=== PATIENT | male | born 1955 | race Caucasian/White ===

== ENCOUNTER 2016-09-03 05:59 | Inpatient (IN) | payer BC ==
[~2016-09-03 05:59] MED LIST: Lactated Ringers 1,000 ML IV SCH; Lidocaine 1%/Sod Bicarbonate in NS 8.4% 1 ML Syringe IV PRN
[2016-09-03] MEDS ORDERED: oxyCODONE 5 MG Tab PO PRN (06:10)
[2016-09-03] MEDS ORDERED: Bisacodyl 5 MG Tab PO PRN (06:10)
[2016-09-03] MEDS ORDERED: Ondansetron 4 MG/2 ML SDV IVPUSH PRN (06:10)
[2016-09-03] MEDS ORDERED: Scopolamine 1.5 MG Transdermal Patch TRDERM ONE (07:00)
[2016-09-03] MEDS ORDERED: Morphine PF 10 MG/10 ML SDV ONE (07:14)
[2016-09-03] MEDS ORDERED: Midazolam 1 MG/ML 2 ML SDV ONE (07:14)
[2016-09-03] MEDS ORDERED: ceFAZolin 1 GM Vial ONE (07:36)
[2016-09-03] MEDS ORDERED: Propofol 200 MG/20 ML SDV ONE ×4 (07:41→09:03)
[2016-09-03] MEDS ORDERED: Lidocaine 1% 2 ML ONE (07:42)
[2016-09-03] MEDS: ceFAZolin 1 GM Vial ONE ×2 (08:07→08:45)
[2016-09-03] MEDS: Iodine/Sodium Iodide 2% Tincture 30 ML Bottle ONE ×2 (08:07→08:39)
[2016-09-03] MEDS: Bupivacaine 0.25% 30 ML SDV ONE ×2 (08:08→08:50)
[2016-09-03] MEDS: Morphine 8 MG, EPINEPHrine 0.3 MG, Cefuroxime 750 MG, Ketorolac 30 MG, Sodium Chloride ... ONE ×15 (08:08→20:31)
--- NOTE | 2016-09-03 08:21 | PCM.PREANE ---
Preanesthetic Assessment - Procedure Proposed Procedure: Left Total Knee Arthroplasty - Anesthesia/Transfusion/Family Hx Anesthesia History: Prior Anesthesia Reaction Type of Anesthesia Reaction: Excessive Nausea/Vomiting Family History of Anesthesia Reaction: No Transfusion History: No Prior Transfusion(s) - Review of Systems General: No Symptoms Pulmonary: No Symptoms Cardiovascular: No Symptoms Gastrointestinal: No symptoms Neurological: No Symptoms Other: Reports: None - Physical Assessment NPO Status Date: 09/02/16 NPO Status Time: 22:30 Pulse: 80 O2 Sat by Pulse Oximetry: 94 Respiratory Rate: 16 Blood Pressure: 154/87 Temperature: 36.8 C Height: 1.75 m Weight: 99.79 kg ASA Class: 2 Mental Status: Alert & Oriented x3 Airway Class: Mallampati = 2 Dentition: Reports: Normal Dentition Thyro-Mental Finger Breadths: 3 Mouth Opening Finger Breadths: 3 ROM/Head Extension: Full Lungs: Clear to auscultation, Normal respiratory effort Cardiovascular: Regular Rate, Regular Rhythm, No Murmurs - Lab Values: Laboratory Last Values MRSA (PCR) Negative 08/22/16 13:02 Pre-op labs all (CBC,BMP,Coags) essentially normal - Imaging/EKG Impressions: EKG NSR CXR negative for acute process - Allergies Allergies/Adverse Reactions: Allergies Allergy/AdvReac Type Severity Reaction Status Date / Time No Known Allergies Allergy Verified 08/31/16 10:44 - Blood Blood Available: No - Acknowledgements Anesthesia Type Planned: Spinal Pt an Appropriate Candidate for the Planned Anesthesia: Yes Alternatives and Risks of Anesthesia Discussed w Pt/Guardian: Yes Pt/Guardian Understands and Agrees with Anesthesia Plan: Yes PreAnesthesia Questionnaire HEENT History: Reports: Impaired vision Other HEENT History: cerumen impaction, wears glasses, 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 Cardiovascular History: Reports: High cholesterol Respiratory History: Reports: Pneumothorax (spontaneous right 2013) Other Respiratory History: Right spontaneous pneumothorax resulting in chest tube placement, followed by talc pleurodesis 2013 Gastrointestinal History: Reports: GERD [employer]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: Reports: None Musculoskeletal History: Reports: Arthritis Other Musculoskeletal History: carpal tunnel syndrome, hip pain, joint pain, laminectomy 91,93, L knee cartilage repair 71, R toe pain, low back strain Neurological History: Reports: Migraines Psychiatric History: Reports: Anxiety Endocrine/Metabolic History: Reports: None Hematologic History: Reports: None Immunologic History: Reports: None Oncologic (Cancer) History: Reports: Prostate Other Dermatologic History: sebaceous cyst, onchomycosis, epidermal cyst - Past Surgical History Head Surgeries/Procedures: Reports: None HEENT Surgical History: Reports: Tonsillectomy Respiratory Surgical History: Reports: Pleurodesis (right lung), Other (see below) (right lung chest tube plcmt) GI Surgical History: Reports: Colonoscopy Male Surgical History: Reports: Prostatectomy, Vasectomy Other Musculoskeletal Surgeries/Procedures:: bulging disks/laminectomy, L carpal tunnel surgery, knee surgery - SUBSTANCE USE Smoking Status *Q: Never Smoker Second Hand Smoke Exposure: No Days Per Week of Alcohol Use: 7 Number of Drinks Per Day: 1 Total Drinks Per Week: 7 Recreational Drug Use History: No - HOME MEDS Home Medications: Home Meds Fenofibrate Nanocrystallized [Tricor] 48 mg PO BEDTIME 12/02/13 [History] Edwards-3S/DHA/Epa/Fish Oil/D3 [Fish Gqe-Hgwwm-6-Vit D Softgel] 2 each PO BEDTIME 12/02/13 [History] Omeprazole [Prilosec] 20 mg PO BEDTIME 12/02/13 [History] Ubidecarenone [Co Q-10] 10 mg PO BEDTIME 12/02/13 [History] Lovastatin 20 mg PO BEDTIME 03/26/15 [History] Nortriptyline 20 mg PO BEDTIME 05/08/16 [History] Sildenafil [Revatio] 20 mg PO BEDTIME 05/08/16 [History] Cholecalciferol (Vitamin D3) [Vitamin D3] 1,000 unit PO BEDTIME 08/31/16 [ History] - CURRENT (IN HOUSE) MEDS Current Meds: Current Medications Aspirin (Ecotrin) 325 mg PO BID ELIANE Bisacodyl (Dulcolax) 5 mg PO DAILY PRN PRN Reason: Constipation Cyclobenzaprine HCl (Flexeril) 10 mg PO TID PRN PRN Reason: Spasms Docusate Sodium (Colace) 100 mg PO BID ELIANE Famotidine (Pepcid) 20 mg PO Q12H ELIANE Lactated Ringer's (Ringers, Lactated) 1,000 mls @ 125 mls/hr IV ASDIRECTED ELIANE Last Admin: 09/03/16 06:35 Dose: 125 mls/hr Cefazolin Sodium/Dextrose 2 gm (/ Premix) 50 mls @ 100 mls/hr IV Q8H ELIANE Stop: 09/04/16 06:59 Ketorolac Tromethamine (Toradol) 15 mg IVPUSH Q6H PRN PRN Reason: Pain Stop: 09/03/16 15:01 Lidocaine/Sodium Bicarbonate (Buffered Lidocaine 1% In Ns 8.4%) 0.25 ml IV ONETIME PRN PRN Reason: Prior to IV Start Last Admin: 09/03/16 06:35 Dose: 0.25 ml Magnesium Hydroxide (Milk Of Magnesia) 30 ml PO BID PRN PRN Reason: Constipation Miscellaneous Information (Remove Patch) 1 ea TRDERM Q72H ONE Stop: 09/06/16 07:01 Morphine Sulfate (Morphine) 2 mg IVPUSH Q2H PRN PRN Reason: Breakthrough Pain Multivitamins (Thera) 1 each PO WITHBREAKFAST ELIANE Naloxone HCl (Narcan) 0.1 mg IVPUSH Q5M PRN PRN Reason: Oversedation Stop: 09/03/16 10:16 Ondansetron HCl (Zofran) 4 mg IVPUSH Q6H PRN PRN Reason: Nausea/Vomiting Oxycodone HCl (Oxycodone) 10 mg PO Q6H PRN PRN Reason: Pain Oxycodone/Acetaminophen (Percocet 325-5 Mg) 1 - 2 tab PO Q4H PRN PRN Reason: Pain Senna (Senna) 8.6 mg PO BID PRN PRN Reason: Constipation Sodium Chloride (Saline Flush) 10 ml FLUSH ASDIRECTED PRN PRN Reason: Keep Vein Open Discontinued Medications Bupivacaine HCl (Marcaine 0.25%) Confirm Administered Dose 30 ml .ROUTE .STK- MED ONE Stop: 09/03/16 06:19 Last Admin: 09/03/16 08:08 Dose: 30 ml Cefazolin Sodium (Ancef) Confirm Administered Dose 2 gm .ROUTE .STK-MED ONE Stop: 09/03/16 06:19 Last Admin: 09/03/16 08:07 Dose: 2 gm Cefazolin Sodium (Ancef) Confirm Administered Dose 2 gm .ROUTE .STK-MED ONE Stop: 09/03/16 07:37 Morphine Sulfate 8 mg/Epinephrine HCl 0.3 mg/Cefuroxime Sodium 750 mg/Ketorolac Tromethamine 30 mg/Sodium Chloride 27.9 ml 0 mg .XX ONETIME ONE Stop: 09/03/16 08:01 Last Admin: 09/03/16 08:08 Dose: 788.3 mg Lidocaine HCl (Xylocaine-Mpf 1%) Confirm Administered Dose 2 mls @ as directed .ROUTE .STK-MED ONE Stop: 09/03/16 07:43 Iodine (Iodine 2% Mild Tincture) Confirm Administered Dose 30 ml .ROUTE .STK- MED ONE Stop: 09/03/16 06:19 Last Admin: 09/03/16 08:07 Dose: 18 ml Midazolam HCl (Versed 1 Mg/Ml) Confirm Administered Dose 2 mg .ROUTE .STK-MED ONE Stop: 09/03/16 07:15 Morphine Sulfate (Duramorph Pf) Confirm Administered Dose 10 mg .ROUTE .STK-MED ONE Stop: 09/03/16 07:15 Propofol (Diprivan 20 Ml) Confirm Administered Dose 200 mg .ROUTE .STK-MED ONE Stop: 09/03/16 07:42 Propofol (Diprivan 20 Ml) Confirm Administered Dose 200 mg .ROUTE .STK-MED ONE Stop: 09/03/16 07:57 Scopolamine (Transderm-Scop) 1.5 mg TRDERM ONETIME ONE Stop: 09/03/16 07:01 Last Admin: 09/03/16 07:00 Dose: 1.5 mg Tranexamic Acid (Cyklokapron) Confirm Administered Dose 1,000 mg .ROUTE .STK- MED ONE Stop: 09/03/16 06:18 Last Admin: 09/03/16 08:08 Dose: 1,000 mg Preanesthetic Assessment - ANESTHESIA/TRANSFUSION/FAMILY HX Anesthesia/Transfusion History: No Prior Transfusion(s), Prior Anesthesia ( nausea) Family History of Anesthesia Reaction: No - PHYSICAL ASSESSMENT Height: 1.75 m Weight: 99.79 kg NPO Status Date: 09/02/16 NPO Status Time: 22:30 - LAB Values: Laboratory Last Values MRSA (PCR) Negative 08/22/16 13:02 - ALLERGIES Allergies/Adverse Reactions: Allergies Allergy/AdvReac Type Severity Reaction Status Date / Time No Known Allergies Allergy Verified 08/31/16 10:44
[2016-09-03] MEDS ORDERED: Ketorolac 15 MG/ML SDV IVPUSH PRN (09:00)
[2016-09-03] MEDS ORDERED: Lactated Ringers 1,000 ML ONE (09:14)
[2016-09-03] MEDS ORDERED: fentaNYL 100 MCG/2 ML SDV ONE (09:39)
--- NOTE | 2016-09-03 09:53 | PCM.POSTAN ---
POST ANESTHESIA ASSESSMENT - MENTAL STATUS Mental Status: alert, oriented - VITAL SIGNS Pulse Rate: 64 SaO2: 98 Resp Rate: 8 Blood Pressure: 132/81 Temperature: 36.2 C - RESPIRATORY Respiratory Status: respiratory rate WNL, airway patent, O2 saturation stable - CARDIOVASCULAR CV Status: pulse rate WNL, blood pressure stable - GASTROINTESTINAL GI Status: no symptoms - PAIN Pain Score: 6 - POST OP HYDRATION Hydration Status: adequate & stable
[2016-09-03] MEDS ORDERED: Naloxone 0.4 MG/ML SDV IVPUSH PRN (10:00)
[2016-09-03] MEDS ORDERED: Ondansetron 4 MG/2 ML SDV IVPUSH ONE (10:30)
[2016-09-03] MEDS ORDERED: HYDROmorphone 0.5 MG/0.5 ML Syringe IM ONE (10:33)
[2016-09-03] MEDS ORDERED: fentaNYL 50 MCG/HR Transdermal Patch TRDERM SCH (10:45)
--- NOTE | 2016-09-03 10:54 | CR ---
Left knee: AP and lateral views of the left knee were obtained. Comparison: No previous knee study. Knee prosthesis is seen. Components are aligned. Underlying bony structures are intact. Soft tissue air noted from the surgical procedure. Impression: 1. Satisfactory postop radiographic appearance of recently placed left knee prosthesis. Diagnostic code #2
--- NOTE | 2016-09-03 13:56 | PCM.CONS ---
H&P History of Present Illness - General Date of Service: 09/03/16 Admit Problem/Dx: Admission Diagnosis/Problem Admission Diagnosis/Problem Osteoarthritis of knee Source of Information: Patient, Old records History Limitations: Reports: No limitations - History of Present Illness Initial Comments - Free Text/Narative: Phillip is a 60yo male s/p Lt TKA with Dr. Patel; POD #0 Doing well thus far. Pain under fair control now, fentanyl patch ordered per anesthesia. Jose catheter draining. PMH includes HLD, GERD, OA, migraine MENDOZA's, anxiety, spontaeneous pneumothorax in 2013, sphenoid sinus mass, prostate cancer s/p prostatectomy. Hospitalist service is consulted for postoperative medical management. Left Knee Pain Score (Numeric/FACES): 2 - Related Data Allergies/Adverse Reactions: Allergies Allergy/AdvReac Type Severity Reaction Status Date / Time No Known Allergies Allergy Verified 08/31/16 10:44 Home Medications: Home Meds Fenofibrate Nanocrystallized [Tricor] 48 mg PO BEDTIME 12/02/13 [History] Alpha-3S/DHA/Epa/Fish Oil/D3 [Fish Bzn-Tlzbi-6-Vit D Softgel] 2 each PO BEDTIME 12/02/13 [History] Omeprazole [Prilosec] 20 mg PO BEDTIME 12/02/13 [History] Ubidecarenone [Co Q-10] 10 mg PO BEDTIME 12/02/13 [History] Lovastatin 20 mg PO BEDTIME 03/26/15 [History] Nortriptyline 20 mg PO BEDTIME 05/08/16 [History] Sildenafil [Revatio] 20 mg PO BEDTIME 05/08/16 [History] Cholecalciferol (Vitamin D3) [Vitamin D3] 1,000 unit PO BEDTIME 08/31/16 [ History] Past Medical History HEENT History: Reports: Impaired vision Other HEENT History: cerumen impaction, wears glasses, 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 Cardiovascular History: Reports: High cholesterol Respiratory History: Reports: Pneumothorax (spontaneous right 2013) Other Respiratory History: Right spontaneous pneumothorax resulting in chest tube placement, followed by talc pleurodesis 2013 Gastrointestinal History: Reports: GERD 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: Reports: None Musculoskeletal History: Reports: Arthritis Other Musculoskeletal History: carpal tunnel syndrome, hip pain, joint pain, laminectomy 91,93, L knee cartilage repair 71, R toe pain, low back strain Neurological History: Reports: Migraines Psychiatric History: Reports: Anxiety Endocrine/Metabolic History: Reports: None Hematologic History: Reports: None Immunologic History: Reports: None Oncologic (Cancer) History: Reports: Prostate Other Dermatologic History: sebaceous cyst, onchomycosis, epidermal cyst - Past Surgical History Head Surgeries/Procedures: Reports: None HEENT Surgical History: Reports: Tonsillectomy Respiratory Surgical History: Reports: Pleurodesis (right lung), Other (see below) (right lung chest tube plcmt) GI Surgical History: Reports: Colonoscopy Male Surgical History: Reports: Prostatectomy, Vasectomy Other Musculoskeletal Surgeries/Procedures:: bulging disks/laminectomy, L carpal tunnel surgery, knee surgery Social & Family History - Family History Family Medical History: Noncontributory - Tobacco Use Smoking Status *Q: Never Smoker Second Hand Smoke Exposure: No - Caffeine Use Caffeine Use: Reports: Coffee - Alcohol Use Days Per Week of Alcohol Use: 7 Number of Drinks Per Day: 1 Total Drinks Per Week: 7 - Recreational Drug Use Recreational Drug Use: No Drug Use in Last 12 Months: No H&P Review of Systems - Review of Systems: Review Of Systems: See Below General: Reports: no symptoms HEENT: Reports: no symptoms Pulmonary: Reports: No Symptoms Cardiovascular: Reports: no symptoms Gastrointestinal: Reports: No symptoms Genitourinary: Reports: other (jose cath) Musculoskeletal: Reports: leg pain (lt knee) Psychiatric: Reports: no symptoms Neurological: Reports: No Symptoms Exam - Exam Exam: See Below - Vital Signs Vital Signs: Last Vital Signs Temp 96.6 F 09/03/16 11:04 Pulse 64 09/03/16 13:01 Resp 20 09/03/16 12:02 BP 131/76 09/03/16 13:15 Pulse Ox 97 09/03/16 13:15 Weight: 220 lb - Exam Quality Assessment: DVT prophylaxis General: alert, oriented, cooperative HEENT: Conjunctiva clear, EOMI, Hearing intact, Mucosa moist & pink, Pupils equal, Pupils reactive Neck: supple, trachea midline Lungs: Clear to auscultation, Normal respiratory effort Cardiovascular: regular rate, regular rhythm, normal S1, normal S2 Abdomen: normal bowel sounds, soft. No: organomegaly, guarding, rigidity, rebound, tenderness (Male) Exam: Deferred Rectal (Males) Exam: Deferred Extremities: other (Lt leg with amy wrap; SCD's in place bilat). No: calf tenderness, edema Peripheral Pulses: 1+: dorsalis pedis (L), dorsalis pedis (R) Skin: warm, dry Neuro Extensive - Mental Status: alert, oriented x3, normal mood/affect, normal cognition, memory intact Neuro Extensive - Motor, Sensory, Reflexes: CN II-XII intact Psychiatric: alert, normal affect, normal mood Consult PN Assessment/Plan POD#: 0 Procedures: Procedures ASSAY OF CREATININE (11/28/15) ASSAY OF FERRITIN (08/16/16) ASSAY OF LIPASE (05/08/16) ASSAY OF PREALBUMIN (08/16/16) ASSAY OF PSA TOTAL (07/18/16) ASSAY OF TROPONIN QUANT (12/02/13) BONE IMAGING WHOLE BODY (10/17/15) CARPAL TUNNEL SURGERY (04/07/15) CHEST X-RAY 1 VIEW FRONTAL (12/02/13) CHEST X-RAY 2VW FRONTAL&LATL (08/16/16) COMPLETE CBC AUTOMATED (08/16/16) COMPLETE CBC W/AUTO DIFF WBC (05/08/16) COMPREHEN METABOLIC PANEL (08/16/16) CT HEAD/BRAIN W/O & W/DYE (09/16/15) CT MAXILLOFACIAL W/O DYE (10/07/15) EMERGENCY DEPT VISIT (05/08/16) EMERGENCY DEPT VISIT (03/26/15) EMERGENCY DEPT VISIT (12/02/13) FIBRIN DEGRADATION QUANT (12/02/13) HYDRATE IV INFUSION ADD-ON (05/08/16) IMMUNIZATION ADMIN (03/26/15) INSERT CATH PLEURA W/ IMAGE (12/02/13) LEUKOCYTE ASSESSMENT FECAL (05/08/16) LIPID PANEL (05/18/16) MEASURE BLOOD OXYGEN LEVEL (12/02/13) MEASURE BLOOD OXYGEN LEVEL (12/02/13) METABOLIC PANEL TOTAL CA (05/18/16) MR ANGIOGRAPHY HEAD W/O DYE (11/28/15) MR ANGIOGRAPHY NECK W/DYE (11/28/15) MR-STAPH DNA AMP PROBE (04/07/15) MRI BRAIN STEM W/O & W/DYE (05/17/16) MRI ORBT/FAC/NCK W/O &W/DYE (09/22/15) PROTHROMBIN TIME (08/16/16) ROUTINE VENIPUNCTURE (07/18/16) STOOL CULTR AEROBIC BACT EA (05/08/16) TDAP VACCINE 7 YRS/> IM (03/26/15) THER/PROPH/DIAG INJ IV PUSH (05/08/16) THROMBOPLASTIN TIME PARTIAL (08/16/16) TX/PRO/DX INJ NEW DRUG ADDON (05/08/16) TX/PRO/DX INJ SAME DRUG BOWLING OR SKATING FRONT DESK CLERK (12/02/13) VITAMIN D 25 HYDROXY (08/16/16) (1) S/P total knee arthroplasty SNOMED Code(s): 8819247735733, 986002654, 2105911607447 Code(s): Z96.659 - PRESENCE OF UNSPECIFIED ARTIFICIAL KNEE JOINT Priority: High Current Visit: Yes Qualifiers: Laterality: left Qualified Code(s): Z96.652 - Presence of left artificial knee joint (2) Osteoarthritis SNOMED Code(s): 319123953 Code(s): M19.90 - UNSPECIFIED OSTEOARTHRITIS, UNSPECIFIED SITE Priority: High Current Visit: Yes Qualifiers: Osteoarthritis location: knee Osteoarthritis type: primary Laterality: left Qualified Code(s): M17.12 - Unilateral primary osteoarthritis, left knee (3) HLD (hyperlipidemia) SNOMED Code(s): 17839402 Code(s): E78.5 - HYPERLIPIDEMIA, UNSPECIFIED Priority: Medium Current Visit: No Qualifiers: Hyperlipidemia type: unspecified Qualified Code(s): E78.5 - Hyperlipidemia , unspecified (4) Migraine SNOMED Code(s): 18421685 Code(s): G43.909 - MIGRAINE, UNSP, NOT INTRACTABLE, WITHOUT STATUS MIGRAINOSUS Priority: Medium Current Visit: No Qualifiers: Migraine type: unspecified Intractability: not intractable (5) Anxiety SNOMED Code(s): 28406539 Code(s): F41.9 - ANXIETY DISORDER, UNSPECIFIED Priority: Medium Current Visit: No (6) Prostate cancer SNOMED Code(s): 054657881 Code(s): C61 - MALIGNANT NEOPLASM OF PROSTATE Priority: Medium Current Visit: No Comment: history of; s/p prostatectomy (7) S/P prostatectomy SNOMED Code(s): 136522654, 48931801, 231117279 Code(s): Z90.79 - ACQUIRED ABSENCE OF OTHER GENITAL ORGAN(S) Priority: Medium Current Visit: No (8) Mass of sphenoid sinus SNOMED Code(s): 773667221 Code(s): R22.0 - LOCALIZED SWELLING, MASS AND LUMP, HEAD Priority: Medium Current Visit: No (9) Spontaneous pneumothorax SNOMED Code(s): 45425639 Code(s): J93.83 - OTHER PNEUMOTHORAX Priority: High Current Visit: No Onset Date: 12/02/13 Comment: right Problem List Initiated/Reviewed/Updated: Yes My Orders last 24 hours: My Active Orders 09/05/16 07:00 Chest 2V [CR] Routine Plan: S/P Lt TKA with Dr. Patel: POD #0 -Pain management and DVT prophylax per primary team -PT/OT -IS/C&DB postop Other chronic conditions: Stable, continue home medications GERD- PPI HLD Migraine Anxiety Hx prostate ca s/p prostatectomy Hx spenoid sinus mas hx spontaneous pneumothorax in 2013- will obtain CXR tomorrow to ensure no recurrence postoperatively Other: CM/SW for dc planning assistance Labs in am Patient is Full Code Requesting Provider: Amanda Date Consult Requested: 09/03/16 Reason for Consult: Postoperative medical management Patient History Reviewed: Yes Time Spent (in minutes): 35
[2016-09-03] MEDS: ceFAZolin 2 GM in Premix Bag 1 BAG IV SCH ×2 (14:40→22:32)
[2016-09-03] MEDS: Sodium Chloride 0.9% 10 ML Syringe FLUSH PRN (15:49)
[2016-09-03] MEDS: Docusate Sodium 100 MG Cap PO SCH (20:33)
[2016-09-03] MEDS: Cyclobenzaprine 10 MG Tab PO PRN (20:33)
[2016-09-03] MEDS: Ketorolac 15 MG/ML SDV IVPUSH PRN (20:35)
[2016-09-03] MEDS: Pantoprazole 40 MG Tab.CR PO SCH (20:53)
[2016-09-03] MEDS: Nortriptyline 10 MG Cap PO SCH (20:53)
[2016-09-03] MEDS: Cholecalciferol (Vitamin D3) 1,000 Unit Tab PO SCH (20:54)
[2016-09-03] MEDS: Simvastatin 10 MG Tab PO SCH (20:54)
[2016-09-03] MEDS: FENOFIBRATE NANOCRYSTALLIZED 48 MG PO SCH (20:54)
[2016-09-03] MEDS: Sildenafil 20 MG Tab PO SCH (20:55)
[2016-09-03] MEDS: UBIDECARENONE 10 MG PO SCH (20:55)
[2016-09-03] MEDS: Fish Oil/Omega-3 Fatty Acids 1 Gm Cap PO SCH (21:00)
[2016-09-03] MEDS ORDERED: Magnesium Hydroxide 400 MG/5 ML Susp 30 ML Cup PO PRN (21:00)
[2016-09-03] MEDS ORDERED: Sennosides 8.6 MG Tab PO PRN (21:00)
[2016-09-03] MEDS ORDERED: Famotidine 20 MG Tab PO SCH (21:00)
[2016-09-04] MEDS: Aluminum Hydroxide/Magnesium Hydroxide/Simethicone Susp 30 ML Cup PO PRN ×2 (01:14→11:59)
[2016-09-04] MEDS: Acetaminophen 325 MG Tab PO PRN (01:21)
[2016-09-04] MEDS: Ketorolac 15 MG/ML SDV IVPUSH PRN (02:20)
[2016-09-04] MEDS: ceFAZolin 2 GM in Premix Bag 1 BAG IV SCH (07:18)
[2016-09-04] MEDS: Cyclobenzaprine 10 MG Tab PO PRN ×2 (08:05→16:06)
[2016-09-04] MEDS: Multivitamins,Therapeutic Tab PO SCH (08:05)
[2016-09-04] MEDS: Docusate Sodium 100 MG Cap PO SCH ×2 (08:05→20:44)
[2016-09-04] MEDS: Aspirin 325 MG Tab.EC PO SCH ×2 (08:05→20:44)
[2016-09-04] MEDS: Acetaminophen/oxyCODONE 325-5 MG Tab PO PRN ×3 (09:20→18:09)
[2016-09-04] MEDS: Sodium Chloride 0.9% 10 ML Syringe FLUSH PRN ×3 (09:22→13:02)
--- NOTE | 2016-09-04 10:28 | PCM.CONSN ---
- General Info Date of Service: 09/04/16 Admission Dx/Problem (Free Text): Admission Diagnosis/Problem Admission Diagnosis/Problem Osteoarthritis of knee POD [address] Patel Pain under fair control, voiding without problems. Had nausea this am- resolved now. Temp overnight of 100.0, resolved now. CXR obtained/ordered d/t hx of spontaneous pneumothorax- unremarkable by my review- awaiting radiologists final interp. Working with PT, doing well. Plans for dc home today with family. Functional Status: Reports: pain controlled, tolerating diet, ambulating, urinating. Denies: new symptoms - Review of Systems General: Reports: No Symptoms HEENT: Reports: no symptoms Pulmonary: Reports: no symptoms Cardiovascular: Reports: No Symptoms Gastrointestinal: Reports: No symptoms Genitourinary: Reports: no symptoms Musculoskeletal: Reports: leg pain Skin: Reports: no symptoms Neurological: Reports: No Symptoms Psychiatric: Reports: no symptoms - Patient Data Vitals - most recent: Last Vital Signs Temp 99.0 F 09/04/16 09:29 Pulse 78 09/04/16 09:29 Resp 16 09/04/16 09:29 BP 148/67 H 09/04/16 09:29 Pulse Ox 91 L 09/04/16 09:29 Weight - most recent: 220 lb I&O - last 24 hours: Intake & Output 09/03/16 09/04/16 09/04/16 22:59 06:59 14:59 Intake Total 1820 800 100 Output Total 1150 1200 Balance 670 -400 100 Lab Results last 24 hrs: Laboratory Results - last 24 hr 09/04/16 09/04/16 Range/Units 06:06 06:06 WBC 12.69 H (4.23-9.07) K/mm3 RBC 4.00 L (4.63-6.08) M/mm3 Hgb 12.5 L (13.7-17.5) gm/L Hct 36.3 L (40.1-51.0) % MCV 90.8 (79.0-92.2) fl MCH 31.3 (25.7-32.2) pg MCHC 34.4 (32.2-35.5) g/dl RDW Std Deviation 39.6 (35.1-43.9) fL Plt Count 286 (163-337) K/mm3 MPV 9.7 (9.4-12.3) fl Neut % (Auto) 72.9 H (34.0-67.9) % Lymph % (Auto) 12.7 L (21.8-53.1) % [place] % (Auto) 12.7 H (5.3-12.2) % Eos % (Auto) 1.3 (0.8-7.0) Baso % (Auto) 0.2 (0.1-1.2) % Neut # (Auto) 9.24 H (1.78-5.38) K/mm3 Lymph # (Auto) 1.61 (1.32-3.57) K/mm3 [place] # (Auto) 1.61 H (0.30-0.82) K/mm3 Eos # (Auto) 0.17 (0.04-0.54) K/mm3 Baso # (Auto) 0.03 (0.01-0.08) K/mm3 Manual Slide Review Normal smear Sodium 135 L (136-145) mEq/L Potassium 3.7 (3.5-5.1) mEq/L Chloride 101 (98-107) mEq/L Carbon Dioxide 27 (21-32) mEq/L Anion Gap 10.7 (5-15) BUN 14 (7-18) mg/dL Creatinine 1.1 (0.7-1.3) mg/dL Est Cr Clr Drug Dosing 70.52 mL/min Estimated GFR (MDRD) > 60 (>60) mL/min BUN/Creatinine Ratio 12.7 L (14-18) Glucose 122 H (80-115) mg/dL Calcium 8.2 L (8.5-10.1) mg/dL Total Bilirubin 0.9 (0.2-1.0) mg/dL AST 21 (15-37) U/L ALT 49 (16-63) U/L Alkaline Phosphatase 38 L (46-116) U/L Total Protein 5.9 L (6.4-8.2) g/dl Albumin 3.3 L (3.4-5.0) g/dl Globulin 2.6 gm/dL Albumin/Globulin Ratio 1.3 (1-2) Med Orders - Current: Current Medications Acetaminophen (Tylenol) 650 mg PO Q4H PRN PRN Reason: Headache Last Admin: 09/04/16 01:21 Dose: 650 mg Al Hydroxide/Mg Hydroxide (Mag-Al Plus) 30 ml PO Q4H PRN PRN Reason: Heartburn Last Admin: 09/04/16 01:14 Dose: 30 ml Aspirin (Ecotrin) 325 mg PO BID [facility] Last Admin: 09/04/16 08:05 Dose: 325 mg Bisacodyl (Dulcolax) 5 mg PO DAILY PRN PRN Reason: Constipation Cholecalciferol (Vitamin D3) 1,000 units PO BEDTIME [facility] Last Admin: 09/03/16 20:54 Dose: Not Given Cyclobenzaprine HCl (Flexeril) 10 mg PO TID PRN PRN Reason: Spasms Last Admin: 09/04/16 08:05 Dose: 10 mg Docusate Sodium (Colace) 100 mg PO BID [facility] Last Admin: 09/04/16 08:05 Dose: 100 mg Fentanyl (Duragesic) 50 mcg TRDERM Q72H [facility] Last Admin: 09/03/16 11:46 Dose: Not Given Fish Oil (Fish Oil) 2 gm PO BEDTIME [facility] Last Admin: 09/03/16 21:00 Dose: 2 gm Lactated Ringer's (Ringers, Lactated) 1,000 mls @ 125 mls/hr IV ASDIRECTED [facility] Last Admin: 09/03/16 06:35 Dose: 125 mls/hr Magnesium Hydroxide (Milk Of Magnesia) 30 ml PO BID PRN PRN Reason: Constipation Miscellaneous Information (Remove Patch) 1 ea TRDERM Q72H ONE Stop: 09/06/16 07:01 Miscellaneous Information (Remove Patch) 0 ea TRDERM Q72H [facility] Last Admin: 09/04/16 08:10 Dose: Not Given Morphine Sulfate (Morphine) 2 mg IVPUSH Q2H PRN PRN Reason: Breakthrough Pain Multivitamins (Thera) 1 each PO WITHBREAKFAST [facility] Last Admin: 09/04/16 08:05 Dose: 1 each Nortriptyline HCl (Nortriptyline) 20 mg PO BEDTIME [facility] Last Admin: 09/03/16 20:53 Dose: Not Given Ondansetron HCl (Zofran) 4 mg IVPUSH Q6H PRN PRN Reason: Nausea/Vomiting Last Admin: 09/04/16 09:17 Dose: 4 mg Oxycodone HCl (Oxycodone) 10 mg PO Q6H PRN PRN Reason: Pain Oxycodone/Acetaminophen (Percocet 325-5 Mg) 1 - 2 tab PO Q4H PRN PRN Reason: Pain Last Admin: 09/04/16 09:20 Dose: 2 tab Pantoprazole Sodium (Protonix) 40 mg PO BEDTIME [facility] Last Admin: 09/03/16 20:53 Dose: Not Given Fenofibrate Nanocrystallized [ Tricor] 48 Mg 0 each PO BEDTIME [facility] Last Admin: 09/03/16 20:54 Dose: Not Given Ubidecarenone [Co Q- (10] 10 Mg) 0 each PO BEDTIME [facility] Last Admin: 09/03/16 20:55 Dose: Not Given Senna (Senna) 8.6 mg PO BID PRN PRN Reason: Constipation Sildenafil Citrate (Revatio) 20 mg PO BEDTIME [facility] Last Admin: 09/03/16 20:55 Dose: Not Given Simvastatin (Zocor) 10 mg PO BEDTIME [facility] Last Admin: 09/03/16 20:54 Dose: Not Given Sodium Chloride (Saline Flush) 10 ml FLUSH ASDIRECTED PRN PRN Reason: Keep Vein Open Last Admin: 09/04/16 09:22 Dose: 10 ml Discontinued Medications Bupivacaine HCl (Marcaine 0.25%) Confirm Administered Dose 30 ml .ROUTE .STK- MED ONE Stop: 09/03/16 06:19 Last Admin: 09/03/16 08:50 Dose: 30 ml Cefazolin Sodium (Ancef) Confirm Administered Dose 2 gm .ROUTE .STK-MED ONE Stop: 09/03/16 06:19 Last Admin: 09/03/16 08:45 Dose: 2 gm Cefazolin Sodium (Ancef) Confirm Administered Dose 2 gm .ROUTE .STK-MED ONE Stop: 09/03/16 07:37 Morphine Sulfate 8 mg/Epinephrine HCl 0.3 mg/Cefuroxime Sodium 750 mg/Ketorolac Tromethamine 30 mg/Sodium Chloride 27.9 ml 0 mg .XX ONETIME ONE Stop: 09/03/16 08:01 Last Admin: 09/03/16 20:31 Dose: Not Given Famotidine (Pepcid) 20 mg PO Q12H [facility] Fentanyl (Sublimaze) Confirm Administered Dose 100 mcg .ROUTE .STK-MED ONE Stop: 09/03/16 09:40 Hydromorphone HCl (Dilaudid) 0.5 mg IM ONETIME ONE Stop: 09/03/16 10:34 Last Admin: 09/03/16 11:45 Dose: Not Given Cefazolin Sodium/Dextrose 2 gm (/ Premix) 50 mls @ 100 mls/hr IV Q8H [facility] Stop: 09/04/16 06:59 Last Admin: 09/04/16 07:18 Dose: 100 mls/hr Lidocaine HCl (Xylocaine-Mpf 1%) Confirm Administered Dose 2 mls @ as directed .ROUTE .STK-MED ONE Stop: 09/03/16 07:43 Lactated Ringer's (Ringers, Lactated) Confirm Administered Dose 1,000 mls @ as directed .ROUTE .STK-MED ONE Stop: 09/03/16 09:15 Iodine (Iodine 2% Mild Tincture) Confirm Administered Dose 30 ml .ROUTE .STK- MED ONE Stop: 09/03/16 06:19 Last Admin: 09/03/16 08:39 Dose: 18 ml Ketorolac Tromethamine (Toradol) 15 mg IVPUSH Q6H PRN PRN Reason: Pain Stop: 09/03/16 15:01 Ketorolac Tromethamine (Toradol) 15 mg IVPUSH Q6H PRN PRN Reason: Pain Stop: 09/03/16 22:31 Last Admin: 09/04/16 02:20 Dose: 15 mg Lidocaine/Sodium Bicarbonate (Buffered Lidocaine 1% In Ns 8.4%) 0.25 ml IV ONETIME PRN PRN Reason: Prior to IV Start Last Admin: 09/03/16 06:35 Dose: 0.25 ml Midazolam HCl (Versed 1 Mg/Ml) Confirm Administered Dose 2 mg .ROUTE .STK-MED ONE Stop: 09/03/16 07:15 Morphine Sulfate (Duramorph Pf) Confirm Administered Dose 10 mg .ROUTE .STK-MED ONE Stop: 09/03/16 07:15 Naloxone HCl (Narcan) 0.1 mg IVPUSH Q5M PRN PRN Reason: Oversedation Stop: 09/03/16 10:16 Ondansetron HCl (Zofran) 4 mg IVPUSH ONETIME ONE Stop: 09/03/16 10:31 Last Admin: 09/03/16 10:40 Dose: 4 mg Propofol (Diprivan 20 Ml) Confirm Administered Dose 200 mg .ROUTE .STK-MED ONE Stop: 09/03/16 07:42 Propofol (Diprivan 20 Ml) Confirm Administered Dose 200 mg .ROUTE .STK-MED ONE Stop: 09/03/16 07:57 Propofol (Diprivan 20 Ml) Confirm Administered Dose 200 mg .ROUTE .STK-MED ONE Stop: 09/03/16 08:36 Propofol (Diprivan 20 Ml) Confirm Administered Dose 200 mg .ROUTE .STK-MED ONE Stop: 09/03/16 09:04 Scopolamine (Transderm-Scop) 1.5 mg TRDERM ONETIME ONE Stop: 09/03/16 07:01 Last Admin: 09/03/16 07:00 Dose: 1.5 mg Tranexamic Acid (Cyklokapron) Confirm Administered Dose 1,000 mg .ROUTE .STK- MED ONE Stop: 09/03/16 06:18 Last Admin: 09/03/16 09:00 Dose: 1,000 mg - Exam Quality Assessment: DVT prophylaxis General: alert, oriented, cooperative, no acute distress HEENT: Pupils equal, Pupils reactive, EOMI, Mucous membr. moist/pink Neck: supple Lungs: Clear to auscultation, Normal respiratory effort, Decreased breath sounds (to bases) Cardiovascular: Regular Rate, Regular Rhythm Abdomen: bowel sounds present, soft, no tenderness, no distension (Male) Exam: Deferred Extremities: no calf tenderness, other (SCD's and teds bilat) Peripheral Pulses: 1+: dorsalis pedis (L), dorsalis pedis (R) Skin: warm, dry Neurological: no new focal deficit Psy/Mental Status: alert, normal affect, normal mood Consult PN Assessment/Plan POD#: 1 Procedures: Procedures ASSAY OF CREATININE (11/28/15) ASSAY OF FERRITIN (08/16/16) ASSAY OF LIPASE (05/08/16) ASSAY OF PREALBUMIN (08/16/16) ASSAY OF PSA TOTAL (07/18/16) ASSAY OF TROPONIN QUANT (12/02/13) BONE IMAGING WHOLE BODY (10/17/15) CARPAL TUNNEL SURGERY (04/07/15) CHEST X-RAY 1 VIEW FRONTAL (12/02/13) CHEST X-RAY 2VW FRONTAL&LATL (08/16/16) COMPLETE CBC AUTOMATED (08/16/16) COMPLETE CBC W/AUTO DIFF WBC (05/08/16) COMPREHEN METABOLIC PANEL (08/16/16) CT HEAD/BRAIN W/O & W/DYE (09/16/15) CT MAXILLOFACIAL W/O DYE (10/07/15) EMERGENCY DEPT VISIT (05/08/16) EMERGENCY DEPT VISIT (03/26/15) EMERGENCY DEPT VISIT (12/02/13) FIBRIN DEGRADATION QUANT (12/02/13) HYDRATE IV INFUSION ADD-ON (05/08/16) IMMUNIZATION ADMIN (03/26/15) INSERT CATH PLEURA W/ IMAGE (12/02/13) LEUKOCYTE ASSESSMENT FECAL (05/08/16) LIPID PANEL (05/18/16) MEASURE BLOOD OXYGEN LEVEL (12/02/13) MEASURE BLOOD OXYGEN LEVEL (12/02/13) METABOLIC PANEL TOTAL CA (05/18/16) MR ANGIOGRAPHY HEAD W/O DYE (11/28/15) MR ANGIOGRAPHY NECK W/DYE (11/28/15) MR-STAPH DNA AMP PROBE (04/07/15) MRI BRAIN STEM W/O & W/DYE (05/17/16) MRI ORBT/FAC/NCK W/O &W/DYE (09/22/15) PROTHROMBIN TIME (08/16/16) ROUTINE VENIPUNCTURE (07/18/16) STOOL CULTR AEROBIC BACT EA (05/08/16) TDAP VACCINE 7 YRS/> IM (03/26/15) THER/PROPH/DIAG INJ IV PUSH (05/08/16) THROMBOPLASTIN TIME PARTIAL (08/16/16) TX/PRO/DX INJ NEW DRUG ADDON (05/08/16) TX/PRO/DX INJ SAME DRUG SCENIC DESIGNER (12/02/13) VITAMIN D 25 HYDROXY (08/16/16) (1) S/P total knee arthroplasty SNOMED Code(s): 9640254090253, 018248607, 1024240784554 Code(s): Z96.659 - PRESENCE OF UNSPECIFIED ARTIFICIAL KNEE JOINT Priority: High Current Visit: Yes Qualifiers: Laterality: left Qualified Code(s): Z96.652 - Presence of left artificial knee joint (2) Osteoarthritis SNOMED Code(s): 895423882 Code(s): M19.90 - UNSPECIFIED OSTEOARTHRITIS, UNSPECIFIED SITE Priority: High Current Visit: Yes Qualifiers: Osteoarthritis location: knee Osteoarthritis type: primary Laterality: left Qualified Code(s): M17.12 - Unilateral primary osteoarthritis, left knee (3) HLD (hyperlipidemia) SNOMED Code(s): 68343896 Code(s): E78.5 - HYPERLIPIDEMIA, UNSPECIFIED Priority: Medium Current Visit: No Qualifiers: Hyperlipidemia type: unspecified Qualified Code(s): E78.5 - Hyperlipidemia , unspecified (4) Migraine SNOMED Code(s): 82248213 Code(s): G43.909 - MIGRAINE, UNSP, NOT INTRACTABLE, WITHOUT STATUS MIGRAINOSUS Priority: Medium Current Visit: No Qualifiers: Migraine type: unspecified Intractability: not intractable (5) Anxiety SNOMED Code(s): 13356709 Code(s): F41.9 - ANXIETY DISORDER, UNSPECIFIED Priority: Medium Current Visit: No (6) Prostate cancer SNOMED Code(s): 029028005 Code(s): C61 - MALIGNANT NEOPLASM OF PROSTATE Priority: Medium Current Visit: No Comment: history of; s/p prostatectomy (7) S/P prostatectomy SNOMED Code(s): 710492517, 06868757, 636439167 Code(s): Z90.79 - ACQUIRED ABSENCE OF OTHER GENITAL ORGAN(S) Priority: Medium Current Visit: No (8) Mass of sphenoid sinus SNOMED Code(s): 466339908 Code(s): R22.0 - LOCALIZED SWELLING, MASS AND LUMP, HEAD Priority: Medium Current Visit: No (9) Spontaneous pneumothorax SNOMED Code(s): 95194266 Code(s): J93.83 - OTHER PNEUMOTHORAX Priority: High Current Visit: No Onset Date: 12/02/13 Comment: right Problem List Initiated/Reviewed/Updated: Yes My Orders last 24 hours: My Active Orders 09/04/16 07:00 Chest 2V [CR] Routine 09/04/16 09:24 UA W/MICROSCOPIC [URIN] Stat Plan: S/P Lt TKA with Dr. Patel: POD #1 -Pain management and DVT prophylax per primary team -PT/OT -IS/C&DB postop -low grade temp overnight- likely atelectasis as has resolved now; CXR negative, UA pending. Encouraged IS and C&DB Other chronic conditions: Stable, continue home medications GERD- PPI HLD Migraine Anxiety Hx prostate ca s/p prostatectomy Hx spenoid sinus mas hx spontaneous pneumothorax in 2013- CXR negative this am Other: CM/SW for dc planning assistance Labs stable: hgb 12.5 Patient is Full Code Patient ok for discharge today from hospitalist standpoint.
--- NOTE | 2016-09-04 10:58 | CR ---
Chest: Two views of the chest were obtained. Comparison: Previous chest x-ray of 08/16/16. Slight atelectasis seen within the left lung base. Lungs otherwise are clear. Heart size is normal. Mild tortuosity of the thoracic aorta is seen. No pneumothorax is seen. Bony structures show multiple mild compression deformities within the spine which are felt to be old. Impression: 1. Incidental findings. Nothing acute is appreciated on two-view chest x-ray. Diagnostic code #2
[2016-09-04] MEDS: Morphine 2 MG/ML Syringe IVPUSH PRN ×3 (10:59→20:44)
--- NOTE | 2016-09-04 11:17 | PCM48HPAN ---
Post Anesthesia Note - EVALUATION WITHIN 48HRS OF ANESTHETIC Vital Signs in Normal Range: Yes Patient Participated in Evaluation: Yes Respiratory Function Stable: Yes Airway Patent: Yes Cardiovascular Function Stable: Yes Hydration Status Stable: Yes Pain Control Satisfactory: No (Pt more comfortable yest w/ spinal MSO4 now on po percocet w/ suppl MSO4 IV) Nausea and Vomiting Control Satisfactory: Yes (Pt had one episode emesis this am. now resolved) Mental Status Recovered: Yes - COMMENTS/OBSERVATIONS Free Text/Narrative:: Pt reports no recall during anesthetic
[2016-09-04] MEDS ORDERED: Ketorolac 15 MG/ML SDV IVPUSH ONE ×2 (14:03→20:57)
--- NOTE | 2016-09-04 14:10 | PCM.SURGPN ---
- General Info Date of Service: 09/04/16 POD#: 1 Functional Status: Reports: tolerating diet, ambulating, urinating - Review of Systems Musculoskeletal: Reports: other (The pt progressed well with P.T. today.) - Patient Data Vitals - most recent: Last Vital Signs Temp 98.6 F 09/04/16 12:00 Pulse 89 09/04/16 12:04 Resp 16 09/04/16 09:29 BP 148/69 H 09/04/16 12:04 Pulse Ox 96 09/04/16 12:04 Weight - most recent: 220 lb I&O - last 24 hours: Intake & Output 09/03/16 09/04/16 09/04/16 22:59 06:59 14:59 Intake Total 1820 800 220 Output Total 1150 1200 1600 Balance 670 -400 -1380 Lab Results last 24 hrs: Laboratory Results - last 24 hr 09/04/16 09/04/16 09/04/16 Range/Units 06:06 06:06 11:45 WBC 12.69 H (4.23-9.07) K/mm3 RBC 4.00 L (4.63-6.08) M/mm3 Hgb 12.5 L (13.7-17.5) gm/L Hct 36.3 L (40.1-51.0) % MCV 90.8 (79.0-92.2) fl MCH 31.3 (25.7-32.2) pg MCHC 34.4 (32.2-35.5) g/dl RDW Std Deviation 39.6 (35.1-43.9) fL Plt Count 286 (163-337) K/mm3 MPV 9.7 (9.4-12.3) fl Neut % (Auto) 72.9 H (34.0-67.9) % Lymph % (Auto) 12.7 L (21.8-53.1) % [place] % (Auto) 12.7 H (5.3-12.2) % Eos % (Auto) 1.3 (0.8-7.0) Baso % (Auto) 0.2 (0.1-1.2) % Neut # (Auto) 9.24 H (1.78-5.38) K/mm3 Lymph # (Auto) 1.61 (1.32-3.57) K/mm3 [place] # (Auto) 1.61 H (0.30-0.82) K/mm3 Eos # (Auto) 0.17 (0.04-0.54) K/mm3 Baso # (Auto) 0.03 (0.01-0.08) K/mm3 Manual Slide Review Normal smear Sodium 135 L (136-145) mEq/L Potassium 3.7 (3.5-5.1) mEq/L Chloride 101 (98-107) mEq/L Carbon Dioxide 27 (21-32) mEq/L Anion Gap 10.7 (5-15) BUN 14 (7-18) mg/dL Creatinine 1.1 (0.7-1.3) mg/dL Est Cr Clr Drug Dosing 70.52 mL/min Estimated GFR (MDRD) > 60 (>60) mL/min BUN/Creatinine Ratio 12.7 L (14-18) Glucose 122 H (80-115) mg/dL Calcium 8.2 L (8.5-10.1) mg/dL Total Bilirubin 0.9 (0.2-1.0) mg/dL AST 21 (15-37) U/L ALT 49 (16-63) U/L Alkaline Phosphatase 38 L (46-116) U/L Total Protein 5.9 L (6.4-8.2) g/dl Albumin 3.3 L (3.4-5.0) g/dl Globulin 2.6 gm/dL Albumin/Globulin Ratio 1.3 (1-2) Urine Color Light yellow (Yellow) Urine Appearance Clear (Clear) Urine pH 7.0 (5.0-8.0) Ur Specific [place] 1.015 (1.005-1.030) Urine Protein Negative (Negative) Urine Glucose (UA) Negative (Negative) Urine Ketones Negative (Negative) Urine Occult Blood Trace-intact H (Negative) Urine Nitrite Negative (Negative) Urine Bilirubin Negative (Negative) Urine Urobilinogen 0.2 (0.2-1.0) Ur Leukocyte Esterase Negative (Negative) Urine RBC 0-5 (0-5) /hpf Urine WBC 0-5 (0-5) /hpf Ur Epithelial Cells Not seen (0-5) /hpf Urine Bacteria Not seen (FEW) /hpf Urine Mucus Not seen (FEW) /hpf Med Orders - Current: Current Medications Acetaminophen (Tylenol) 650 mg PO Q4H PRN PRN Reason: Headache Last Admin: 09/04/16 01:21 Dose: 650 mg Al Hydroxide/Mg Hydroxide (Mag-Al Plus) 30 ml PO Q4H PRN PRN Reason: Heartburn Last Admin: 09/04/16 11:59 Dose: 30 ml Aspirin (Ecotrin) 325 mg PO BID PENDING SALE TO [facility] Last Admin: 09/04/16 08:05 Dose: 325 mg Bisacodyl (Dulcolax) 5 mg PO DAILY PRN PRN Reason: Constipation Cholecalciferol (Vitamin D3) 1,000 units PO BEDTIME PENDING SALE TO [facility] Last Admin: 09/03/16 20:54 Dose: Not Given Cyclobenzaprine HCl (Flexeril) 10 mg PO TID PRN PRN Reason: Spasms Last Admin: 09/04/16 08:05 Dose: 10 mg Docusate Sodium (Colace) 100 mg PO BID PENDING SALE TO [facility] Last Admin: 09/04/16 08:05 Dose: 100 mg Fentanyl (Duragesic) 50 mcg TRDERM Q72H PENDING SALE TO [facility] Last Admin: 09/03/16 11:46 Dose: Not Given Fish Oil (Fish Oil) 2 gm PO BEDTIME PENDING SALE TO [facility] Last Admin: 09/03/16 21:00 Dose: 2 gm Lactated Ringer's (Ringers, Lactated) 1,000 mls @ 125 mls/hr IV ASDIRECTED PENDING SALE TO [facility] Last Admin: 09/03/16 06:35 Dose: 125 mls/hr Magnesium Hydroxide (Milk Of Magnesia) 30 ml PO BID PRN PRN Reason: Constipation Miscellaneous Information (Remove Patch) 1 ea TRDERM Q72H ONE Stop: 09/06/16 07:01 Miscellaneous Information (Remove Patch) 0 ea TRDERM Q72H PENDING SALE TO [facility] Last Admin: 09/04/16 08:10 Dose: Not Given Morphine Sulfate (Morphine) 2 mg IVPUSH Q2H PRN PRN Reason: Breakthrough Pain Last Admin: 09/04/16 12:59 Dose: 2 mg Multivitamins (Thera) 1 each PO WITHBREAKFAST PENDING SALE TO [facility] Last Admin: 09/04/16 08:05 Dose: 1 each Nortriptyline HCl (Nortriptyline) 20 mg PO BEDTIME PENDING SALE TO [facility] Last Admin: 09/03/16 20:53 Dose: Not Given Ondansetron HCl (Zofran) 4 mg IVPUSH Q6H PRN PRN Reason: Nausea/Vomiting Last Admin: 09/04/16 09:17 Dose: 4 mg Oxycodone HCl (Oxycodone) 5 mg PO Q6H PRN PRN Reason: Pain Oxycodone/Acetaminophen (Percocet 325-5 Mg) 1 - 2 tab PO Q4H PRN PRN Reason: Pain Last Admin: 09/04/16 14:04 Dose: 2 tab Pantoprazole Sodium (Protonix) 40 mg PO BEDTIME ELIANE Last Admin: 09/03/16 20:53 Dose: Not Given Fenofibrate Nanocrystallized [ Tricor] 48 Mg 0 each PO BEDTIME ELIANE Last Admin: 09/03/16 20:54 Dose: Not Given Ubidecarenone [Co Q- (10] 10 Mg) 0 each PO BEDTIME ELIANE Last Admin: 09/03/16 20:55 Dose: Not Given Senna (Senna) 8.6 mg PO BID PRN PRN Reason: Constipation Sildenafil Citrate (Revatio) 20 mg PO BEDTIME PENDING SALE TO [facility] Last Admin: 09/03/16 20:55 Dose: Not Given Simvastatin (Zocor) 10 mg PO BEDTIME ELIANE Last Admin: 09/03/16 20:54 Dose: Not Given Sodium Chloride (Saline Flush) 10 ml FLUSH ASDIRECTED PRN PRN Reason: Keep Vein Open Last Admin: 09/04/16 13:02 Dose: 10 ml Discontinued Medications Bupivacaine HCl (Marcaine 0.25%) Confirm Administered Dose 30 ml .ROUTE .STK- MED ONE Stop: 09/03/16 06:19 Last Admin: 09/03/16 08:50 Dose: 30 ml Cefazolin Sodium (Ancef) Confirm Administered Dose 2 gm .ROUTE .STK-MED ONE Stop: 09/03/16 06:19 Last Admin: 09/03/16 08:45 Dose: 2 gm Cefazolin Sodium (Ancef) Confirm Administered Dose 2 gm .ROUTE .STK-MED ONE Stop: 09/03/16 07:37 Morphine Sulfate 8 mg/Epinephrine HCl 0.3 mg/Cefuroxime Sodium 750 mg/Ketorolac Tromethamine 30 mg/Sodium Chloride 27.9 ml 0 mg .XX ONETIME ONE Stop: 09/03/16 08:01 Last Admin: 09/03/16 20:31 Dose: Not Given Famotidine (Pepcid) 20 mg PO Q12H PENDING SALE TO [facility] Fentanyl (Sublimaze) Confirm Administered Dose 100 mcg .ROUTE .STK-MED ONE Stop: 09/03/16 09:40 Hydromorphone HCl (Dilaudid) 0.5 mg IM ONETIME ONE Stop: 09/03/16 10:34 Last Admin: 09/03/16 11:45 Dose: Not Given Cefazolin Sodium/Dextrose 2 gm (/ Premix) 50 mls @ 100 mls/hr IV Q8H ELIANE Stop: 09/04/16 06:59 Last Admin: 09/04/16 07:18 Dose: 100 mls/hr Lidocaine HCl (Xylocaine-Mpf 1%) Confirm Administered Dose 2 mls @ as directed .ROUTE .STK-MED ONE Stop: 09/03/16 07:43 Lactated Ringer's (Ringers, Lactated) Confirm Administered Dose 1,000 mls @ as directed .ROUTE .STK-MED ONE Stop: 09/03/16 09:15 Iodine (Iodine 2% Mild Tincture) Confirm Administered Dose 30 ml .ROUTE .STK- MED ONE Stop: 09/03/16 06:19 Last Admin: 09/03/16 08:39 Dose: 18 ml Ketorolac Tromethamine (Toradol) 15 mg IVPUSH Q6H PRN PRN Reason: Pain Stop: 09/03/16 15:01 Ketorolac Tromethamine (Toradol) 15 mg IVPUSH Q6H PRN PRN Reason: Pain Stop: 09/03/16 22:31 Last Admin: 09/04/16 02:20 Dose: 15 mg Ketorolac Tromethamine (Toradol) 15 mg IVPUSH ONETIME ONE Stop: 09/04/16 14:04 Lidocaine/Sodium Bicarbonate (Buffered Lidocaine 1% In Ns 8.4%) 0.25 ml IV ONETIME PRN PRN Reason: Prior to IV Start Last Admin: 09/03/16 06:35 Dose: 0.25 ml Midazolam HCl (Versed 1 Mg/Ml) Confirm Administered Dose 2 mg .ROUTE .STK-MED ONE Stop: 09/03/16 07:15 Morphine Sulfate (Duramorph Pf) Confirm Administered Dose 10 mg .ROUTE .STK-MED ONE Stop: 09/03/16 07:15 Naloxone HCl (Narcan) 0.1 mg IVPUSH Q5M PRN PRN Reason: Oversedation Stop: 09/03/16 10:16 Ondansetron HCl (Zofran) 4 mg IVPUSH ONETIME ONE Stop: 09/03/16 10:31 Last Admin: 09/03/16 10:40 Dose: 4 mg Oxycodone HCl (Oxycodone) 10 mg PO Q6H PRN PRN Reason: Pain Propofol (Diprivan 20 Ml) Confirm Administered Dose 200 mg .ROUTE .STK-MED ONE Stop: 09/03/16 07:42 Propofol (Diprivan 20 Ml) Confirm Administered Dose 200 mg .ROUTE .STK-MED ONE Stop: 09/03/16 07:57 Propofol (Diprivan 20 Ml) Confirm Administered Dose 200 mg .ROUTE .STK-MED ONE Stop: 09/03/16 08:36 Propofol (Diprivan 20 Ml) Confirm Administered Dose 200 mg .ROUTE .STK-MED ONE Stop: 09/03/16 09:04 Scopolamine (Transderm-Scop) 1.5 mg TRDERM ONETIME ONE Stop: 09/03/16 07:01 Last Admin: 09/03/16 07:00 Dose: 1.5 mg Tranexamic Acid (Cyklokapron) Confirm Administered Dose 1,000 mg .ROUTE .STK- MED ONE Stop: 09/03/16 06:18 Last Admin: 09/03/16 09:00 Dose: 1,000 mg - Exam Wound/Incisions: dressing dry and intact General: alert, cooperative, no acute distress Lungs: Normal respiratory effort Extremities: normal pulses, no calf tenderness, other (Alicia's negative. NVS intact for BLE. Assistance needed with SLR LLE.) - Problem List Review Problem List Initiated/Reviewed/Updated: Yes - My Orders Last 24 Hours: Active Orders 24 hr Category Date Time Status Pulse Oximetry [RC] ASDIRECTED Care 09/04/16 10:53 Active Ready for Discharge [RC] PER UNIT ROUTINE Care 09/04/16 13:29 Active Acetaminophen [Tylenol] Med 09/04/16 00:57 Active 650 mg PO Q4H PRN Alum Hydrox/Mag Hydrox/Simeth [Mag-Al Plus] Med 09/04/16 00:56 Active 30 ml PO Q4H PRN Aspirin [Ecotrin] Med 09/04/16 09:00 Active 325 mg PO BID Cholecalciferol (Vitamin D3) [Vitamin D3] Med 09/03/16 21:00 Active 1,000 units PO BEDTIME Cyclobenzaprine [Flexeril] Med 09/03/16 15:00 Active 10 mg PO TID PRN Docusate Sodium [Colace] Med 09/03/16 21:00 Active 100 mg PO BID Fish Oil/[place]-3 Fatty Acids [Fish Oil] Med 09/03/16 21:00 Active 2 gm PO BEDTIME Magnesium Hydroxide [Milk of Magnesia] Med 09/03/16 21:00 Active 30 ml PO BID PRN Multivitamins,Therapeutic [Thera] Med 09/04/16 07:00 Active 1 each PO WITHBREAKFAST Nortriptyline Med 09/03/16 21:00 Active 20 mg PO BEDTIME Pantoprazole [ProTONIX] Med 09/03/16 21:00 Active 40 mg PO BEDTIME Patient's Own Medication [Ptom] Med 09/03/16 21:00 Active 0 each PO BEDTIME Patient's Own Medication [Ptom] Med 09/03/16 21:00 Active 0 each PO BEDTIME Remove Patch Med 09/06/16 07:00 Once 1 ea TRDERM Q72H ONE Sennosides [Senna] Med 09/03/16 21:00 Active 8.6 mg PO BID PRN Sildenafil [Revatio] Med 09/03/16 21:00 Active 20 mg PO BEDTIME Simvastatin [Zocor] Med 09/03/16 21:00 Active 10 mg PO BEDTIME oxyCODONE Med 09/04/16 14:03 Ordered 5 mg PO Q6H PRN Medication Orders Acetaminophen (Tylenol) 650 mg PO Q4H PRN PRN Reason: Headache Last Admin: 09/04/16 01:21 Dose: 650 mg Al Hydroxide/Mg Hydroxide (Mag-Al Plus) 30 ml PO Q4H PRN PRN Reason: Heartburn Last Admin: 09/04/16 11:59 Dose: 30 ml Admin: 09/04/16 01:14 Dose: 30 ml Aspirin (Ecotrin) 325 mg PO BID ELIANE Last Admin: 09/04/16 08:05 Dose: 325 mg Bisacodyl (Dulcolax) 5 mg PO DAILY PRN PRN Reason: Constipation Cholecalciferol (Vitamin D3) 1,000 units PO BEDTIME PENDING SALE TO [facility] Last Admin: 09/03/16 20:54 Dose: Not Given Cyclobenzaprine HCl (Flexeril) 10 mg PO TID PRN PRN Reason: Spasms Last Admin: 09/04/16 08:05 Dose: 10 mg Admin: 09/03/16 20:33 Dose: 10 mg Docusate Sodium (Colace) 100 mg PO BID PENDING SALE TO [facility] Last Admin: 09/04/16 08:05 Dose: 100 mg Admin: 09/03/16 20:33 Dose: 100 mg Fentanyl (Duragesic) 50 mcg TRDERM Q72H PENDING SALE TO [facility] Last Admin: 09/03/16 11:46 Dose: Fish Oil (Fish Oil) 2 gm PO BEDTIME PENDING SALE TO [facility] Last Admin: 09/03/16 21:00 Dose: 2 gm Lactated Ringer's (Ringers, Lactated) 1,000 mls @ 125 mls/hr IV ASDIRECTED PENDING SALE TO [facility] Last Admin: 09/03/16 06:35 Dose: 125 mls/hr Magnesium Hydroxide (Milk Of Magnesia) 30 ml PO BID PRN PRN Reason: Constipation Miscellaneous Information (Remove Patch) 1 ea TRDERM Q72H ONE Stop: 09/06/16 07:01 Miscellaneous Information (Remove Patch) 0 ea TRDERM Q72H PENDING SALE TO [facility] Last Admin: 09/04/16 08:10 Dose: Morphine Sulfate (Morphine) 2 mg IVPUSH Q2H PRN PRN Reason: Breakthrough Pain Last Admin: 09/04/16 12:59 Dose: 2 mg Admin: 09/04/16 10:59 Dose: 2 mg Multivitamins (Thera) 1 each PO WITHBREAKFAST PENDING SALE TO [facility] Last Admin: 09/04/16 08:05 Dose: 1 each Nortriptyline HCl (Nortriptyline) 20 mg PO BEDTIME PENDING SALE TO [facility] Last Admin: 09/03/16 20:53 Dose: Not Given Ondansetron HCl (Zofran) 4 mg IVPUSH Q6H PRN PRN Reason: Nausea/Vomiting Last Admin: 09/04/16 09:17 Dose: 4 mg Oxycodone HCl (Oxycodone) 5 mg PO Q6H PRN PRN Reason: Pain Oxycodone/Acetaminophen (Percocet 325-5 Mg) 1 - 2 tab PO Q4H PRN PRN Reason: Pain Last Admin: 09/04/16 14:04 Dose: 2 tab Admin: 09/04/16 09:20 Dose: 2 tab Pantoprazole Sodium (Protonix) 40 mg PO BEDTIME ELIANE Last Admin: 09/03/16 20:53 Dose: Not Given Fenofibrate Nanocrystallized [ Tricor] 48 Mg 0 each PO BEDTIME ELIANE Last Admin: 09/03/16 20:54 Dose: Not Given Ubidecarenone [Co Q- (10] 10 Mg) 0 each PO BEDTIME ELIANE Last Admin: 09/03/16 20:55 Dose: Not Given Senna (Senna) 8.6 mg PO BID PRN PRN Reason: Constipation Sildenafil Citrate (Revatio) 20 mg PO BEDTIME ELIANE Last Admin: 09/03/16 20:55 Dose: Not Given Simvastatin (Zocor) 10 mg PO BEDTIME ELIANE Last Admin: 09/03/16 20:54 Dose: Not Given Sodium Chloride (Saline Flush) 10 ml FLUSH ASDIRECTED PRN PRN Reason: Keep Vein Open Last Admin: 09/04/16 13:02 Dose: 10 ml Admin: 09/04/16 10:58 Dose: 10 ml Admin: 09/04/16 09:22 Dose: 10 ml Admin: 09/03/16 15:49 Dose: 10 ml - Assessment Assessment (Free Text/Narrative):: POD#1 - left TKA - Plan Plan (Free Text/Narrative):: 1. 325mg ASA BID for VTE prophylaxis. SCDs, TEDs, frequent mobility. 2. Percocet 5/325mg and Flexeril for pain management. May use oxycodone 5mg PO q 6 hrs for breakthrough pain. 3. Discharge to home today if pain controlled. 4. Hgb 12.5 today. The pt's case was discussed with Dr. Patel.
[2016-09-04] MEDS: oxyCODONE 5 MG Tab PO PRN ×2 (16:06→22:42)
[2016-09-04] MEDS: FENOFIBRATE NANOCRYSTALLIZED 48 MG PO SCH (20:42)
[2016-09-04] MEDS: Nortriptyline 10 MG Cap PO SCH (20:42)
[2016-09-04] MEDS: UBIDECARENONE 10 MG PO SCH (20:42)
[2016-09-04] MEDS: Pantoprazole 40 MG Tab.CR PO SCH (20:42)
[2016-09-04] MEDS: Cholecalciferol (Vitamin D3) 1,000 Unit Tab PO SCH (20:43)
[2016-09-04] MEDS: Simvastatin 10 MG Tab PO SCH (20:43)
[2016-09-04] MEDS: Sildenafil 20 MG Tab PO SCH (20:43)
[2016-09-04] MEDS: Fish Oil/Omega-3 Fatty Acids 1 Gm Cap PO SCH (20:44)
[2016-09-05] MEDS: Cyclobenzaprine 10 MG Tab PO PRN ×2 (00:56→12:27)
[2016-09-05] MEDS: Acetaminophen/oxyCODONE 325-5 MG Tab PO PRN ×3 (03:52→14:23)
[2016-09-05 04:35] VITALS: BP 146/70
[2016-09-05] MEDS ORDERED: Ketorolac 30 MG/ML SDV ONE (05:22)
[2016-09-05] MEDS: oxyCODONE 5 MG Tab PO PRN ×2 (07:29→17:09)
--- NOTE | 2016-09-05 08:09 | PCM.PN ---
- General Info Date of Service: 09/05/16 Admission Dx/Problem (Free Text): Admission Diagnosis/Problem Admission Diagnosis/Problem Osteoarthritis of knee POD [address] Patel Pain under better control this morning, slept better last night, voiding without problems. No further nausea. Working with PT, doing well. Plans for dc home today with family. Functional Status: Reports: pain controlled, tolerating diet, ambulating, urinating. Denies: new symptoms - Review of Systems General: Reports: No Symptoms HEENT: Reports: no symptoms Pulmonary: Reports: no symptoms Cardiovascular: Reports: No Symptoms Gastrointestinal: Reports: No symptoms Genitourinary: Reports: no symptoms Musculoskeletal: Reports: leg pain Skin: Reports: no symptoms Neurological: Reports: No Symptoms Psychiatric: Reports: no symptoms - Patient Data Vitals - most recent: Last Vital Signs Temp 99.6 F 09/05/16 04:00 Pulse 92 09/05/16 03:56 Resp 17 09/05/16 03:56 BP 146/70 H 09/05/16 03:56 Pulse Ox 96 09/05/16 03:56 Weight - most recent: 220 lb I&O - last 24 hours: Intake & Output 09/04/16 09/05/16 09/05/16 22:59 06:59 14:59 Intake Total 600 Output Total 1300 650 Balance -700 -650 Lab Results last 24 hrs: Laboratory Results - last 24 hr 09/04/16 Range/Units 11:45 Urine Color Light yellow (Yellow) Urine Appearance Clear (Clear) Urine pH 7.0 (5.0-8.0) Ur Specific [place] 1.015 (1.005-1.030) Urine Protein Negative (Negative) Urine Glucose (UA) Negative (Negative) Urine Ketones Negative (Negative) Urine Occult Blood Trace-intact H (Negative) Urine Nitrite Negative (Negative) Urine Bilirubin Negative (Negative) Urine Urobilinogen 0.2 (0.2-1.0) Ur Leukocyte Esterase Negative (Negative) Urine RBC 0-5 (0-5) /hpf Urine WBC 0-5 (0-5) /hpf Ur Epithelial Cells Not seen (0-5) /hpf Urine Bacteria Not seen (FEW) /hpf Urine Mucus Not seen (FEW) /hpf Med Orders - Current: Current Medications Acetaminophen (Tylenol) 650 mg PO Q4H PRN PRN Reason: Headache Last Admin: 09/04/16 01:21 Dose: 650 mg Al Hydroxide/Mg Hydroxide (Mag-Al Plus) 30 ml PO Q4H PRN PRN Reason: Heartburn Last Admin: 09/04/16 11:59 Dose: 30 ml Aspirin (Ecotrin) 325 mg PO BID [facility] Last Admin: 09/04/16 20:44 Dose: 325 mg Bisacodyl (Dulcolax) 5 mg PO DAILY PRN PRN Reason: Constipation Cholecalciferol (Vitamin D3) 1,000 units PO BEDTIME [facility] Last Admin: 09/04/16 20:43 Dose: Not Given Cyclobenzaprine HCl (Flexeril) 10 mg PO TID PRN PRN Reason: Spasms Last Admin: 09/05/16 00:56 Dose: 10 mg Docusate Sodium (Colace) 100 mg PO BID [facility] Last Admin: 09/04/16 20:44 Dose: 100 mg Fentanyl (Duragesic) 50 mcg TRDERM Q72H [facility] Last Admin: 09/03/16 11:46 Dose: Not Given Fish Oil (Fish Oil) 2 gm PO BEDTIME [facility] Last Admin: 09/04/16 20:44 Dose: 2 gm Lactated Ringer's (Ringers, Lactated) 1,000 mls @ 125 mls/hr IV ASDIRECTED [facility] Last Admin: 09/03/16 06:35 Dose: 125 mls/hr Magnesium Hydroxide (Milk Of Magnesia) 30 ml PO BID PRN PRN Reason: Constipation Miscellaneous Information (Remove Patch) 1 ea TRDERM Q72H ONE Stop: 09/06/16 07:01 Miscellaneous Information (Remove Patch) 0 ea TRDERM Q72H [facility] Last Admin: 09/04/16 08:10 Dose: Not Given Morphine Sulfate (Morphine) 2 mg IVPUSH Q2H PRN PRN Reason: Breakthrough Pain Last Admin: 09/04/16 20:44 Dose: 2 mg Multivitamins (Thera) 1 each PO WITHBREAKFAST [facility] Last Admin: 09/04/16 08:05 Dose: 1 each Nortriptyline HCl (Nortriptyline) 20 mg PO BEDTIME [facility] Last Admin: 09/04/16 20:42 Dose: Not Given Ondansetron HCl (Zofran) 4 mg IVPUSH Q6H PRN PRN Reason: Nausea/Vomiting Last Admin: 09/04/16 09:17 Dose: 4 mg Oxycodone HCl (Oxycodone) 5 mg PO Q6H PRN PRN Reason: Pain Last Admin: 09/05/16 07:29 Dose: 5 mg Oxycodone/Acetaminophen (Percocet 325-5 Mg) 1 - 2 tab PO Q4H PRN PRN Reason: Pain Last Admin: 09/05/16 03:52 Dose: 2 tab Pantoprazole Sodium (Protonix) 40 mg PO BEDTIME [facility] Last Admin: 09/04/16 20:42 Dose: Not Given Fenofibrate Nanocrystallized [ Tricor] 48 Mg 0 each PO BEDTIME [facility] Last Admin: 09/04/16 20:42 Dose: Not Given Ubidecarenone [Co Q- (10] 10 Mg) 0 each PO BEDTIME [facility] Last Admin: 09/04/16 20:42 Dose: Not Given Senna (Senna) 8.6 mg PO BID PRN PRN Reason: Constipation Sildenafil Citrate (Revatio) 20 mg PO BEDTIME [facility] Last Admin: 09/04/16 20:43 Dose: Not Given Simvastatin (Zocor) 10 mg PO BEDTIME [facility] Last Admin: 09/04/16 20:43 Dose: Not Given Sodium Chloride (Saline Flush) 10 ml FLUSH ASDIRECTED PRN PRN Reason: Keep Vein Open Last Admin: 09/04/16 13:02 Dose: 10 ml Discontinued Medications Bupivacaine HCl (Marcaine 0.25%) Confirm Administered Dose 30 ml .ROUTE .STK- MED ONE Stop: 09/03/16 06:19 Last Admin: 09/03/16 08:50 Dose: 30 ml Cefazolin Sodium (Ancef) Confirm Administered Dose 2 gm .ROUTE .STK-MED ONE Stop: 09/03/16 06:19 Last Admin: 09/03/16 08:45 Dose: 2 gm Cefazolin Sodium (Ancef) Confirm Administered Dose 2 gm .ROUTE .STK-MED ONE Stop: 09/03/16 07:37 Morphine Sulfate 8 mg/Epinephrine HCl 0.3 mg/Cefuroxime Sodium 750 mg/Ketorolac Tromethamine 30 mg/Sodium Chloride 27.9 ml 0 mg .XX ONETIME ONE Stop: 09/03/16 08:01 Last Admin: 09/03/16 20:31 Dose: Not Given Famotidine (Pepcid) 20 mg PO Q12H [facility] Fentanyl (Sublimaze) Confirm Administered Dose 100 mcg .ROUTE .STK-MED ONE Stop: 09/03/16 09:40 Hydromorphone HCl (Dilaudid) 0.5 mg IM ONETIME ONE Stop: 09/03/16 10:34 Last Admin: 09/03/16 11:45 Dose: Not Given Cefazolin Sodium/Dextrose 2 gm (/ Premix) 50 mls @ 100 mls/hr IV Q8H [facility] Stop: 09/04/16 06:59 Last Admin: 09/04/16 07:18 Dose: 100 mls/hr Lidocaine HCl (Xylocaine-Mpf 1%) Confirm Administered Dose 2 mls @ as directed .ROUTE .STK-MED ONE Stop: 09/03/16 07:43 Lactated Ringer's (Ringers, Lactated) Confirm Administered Dose 1,000 mls @ as directed .ROUTE .STK-MED ONE Stop: 09/03/16 09:15 Iodine (Iodine 2% Mild Tincture) Confirm Administered Dose 30 ml .ROUTE .STK- MED ONE Stop: 09/03/16 06:19 Last Admin: 09/03/16 08:39 Dose: 18 ml Ketorolac Tromethamine (Toradol) 15 mg IVPUSH Q6H PRN PRN Reason: Pain Stop: 09/03/16 15:01 Ketorolac Tromethamine (Toradol) 15 mg IVPUSH Q6H PRN PRN Reason: Pain Stop: 09/03/16 22:31 Last Admin: 09/04/16 02:20 Dose: 15 mg Ketorolac Tromethamine (Toradol) 15 mg IVPUSH ONETIME ONE Stop: 09/04/16 14:04 Last Admin: 09/04/16 14:15 Dose: 15 mg Ketorolac Tromethamine (Toradol) 15 mg IVPUSH ONETIME ONE Stop: 09/04/16 20:58 Last Admin: 09/05/16 05:26 Dose: 15 mg Ketorolac Tromethamine (Toradol) Confirm Administered Dose 30 mg .ROUTE .STK- MED ONE Stop: 09/05/16 05:23 Last Admin: 09/05/16 05:25 Dose: Not Given Lidocaine/Sodium Bicarbonate (Buffered Lidocaine 1% In Ns 8.4%) 0.25 ml IV ONETIME PRN PRN Reason: Prior to IV Start Last Admin: 09/03/16 06:35 Dose: 0.25 ml Midazolam HCl (Versed 1 Mg/Ml) Confirm Administered Dose 2 mg .ROUTE .STK-MED ONE Stop: 09/03/16 07:15 Morphine Sulfate (Duramorph Pf) Confirm Administered Dose 10 mg .ROUTE .STK-MED ONE Stop: 09/03/16 07:15 Naloxone HCl (Narcan) 0.1 mg IVPUSH Q5M PRN PRN Reason: Oversedation Stop: 09/03/16 10:16 Ondansetron HCl (Zofran) 4 mg IVPUSH ONETIME ONE Stop: 09/03/16 10:31 Last Admin: 09/03/16 10:40 Dose: 4 mg Oxycodone HCl (Oxycodone) 10 mg PO Q6H PRN PRN Reason: Pain Propofol (Diprivan 20 Ml) Confirm Administered Dose 200 mg .ROUTE .STK-MED ONE Stop: 09/03/16 07:42 Propofol (Diprivan 20 Ml) Confirm Administered Dose 200 mg .ROUTE .STK-MED ONE Stop: 09/03/16 07:57 Propofol (Diprivan 20 Ml) Confirm Administered Dose 200 mg .ROUTE .STK-MED ONE Stop: 09/03/16 08:36 Propofol (Diprivan 20 Ml) Confirm Administered Dose 200 mg .ROUTE .STK-MED ONE Stop: 09/03/16 09:04 Scopolamine (Transderm-Scop) 1.5 mg TRDERM ONETIME ONE Stop: 09/03/16 07:01 Last Admin: 09/03/16 07:00 Dose: 1.5 mg Tranexamic Acid (Cyklokapron) Confirm Administered Dose 1,000 mg .ROUTE .STK- MED ONE Stop: 09/03/16 06:18 Last Admin: 09/03/16 09:00 Dose: 1,000 mg - Exam Quality Assessment: DVT prophylaxis General: alert, oriented, cooperative, no acute distress HEENT: Pupils equal, Pupils reactive, EOMI, Mucous membr. moist/pink Neck: supple Lungs: Clear to auscultation, Normal respiratory effort Cardiovascular: Regular Rate, Regular Rhythm Abdomen: bowel sounds present, soft, no tenderness, no distension (Male) Exam: Deferred Extremities: no calf tenderness, other (teds; scd's and ice to lt knee). No: edema Peripheral Pulses: 1+: dorsalis pedis (L), dorsalis pedis (R) Skin: warm, dry Neurological: no new focal deficit Psy/Mental Status: alert, normal affect, normal mood - Problem List & Annotations (1) S/P total knee arthroplasty SNOMED Code(s): 2318907017819, 762201974, 8692377118928 Code(s): Z96.659 - PRESENCE OF UNSPECIFIED ARTIFICIAL KNEE JOINT Status: Acute Priority: High Current Visit: Yes Qualifiers: Laterality: left Qualified Code(s): Z96.652 - Presence of left artificial knee joint (2) Osteoarthritis SNOMED Code(s): 055555092 Code(s): M19.90 - UNSPECIFIED OSTEOARTHRITIS, UNSPECIFIED SITE Status: Acute Priority: High Current Visit: Yes Qualifiers: Osteoarthritis location: knee Osteoarthritis type: primary Laterality: left Qualified Code(s): M17.12 - Unilateral primary osteoarthritis, left knee (3) HLD (hyperlipidemia) SNOMED Code(s): 05727122 Code(s): E78.5 - HYPERLIPIDEMIA, UNSPECIFIED Status: Acute Priority: Medium Current Visit: No Qualifiers: Hyperlipidemia type: unspecified Qualified Code(s): E78.5 - Hyperlipidemia , unspecified (4) Migraine SNOMED Code(s): 03140900 Code(s): G43.909 - MIGRAINE, UNSP, NOT INTRACTABLE, WITHOUT STATUS MIGRAINOSUS Status: Acute Priority: Medium Current Visit: No Qualifiers: Migraine type: unspecified Intractability: not intractable (5) Anxiety SNOMED Code(s): 36634536 Code(s): F41.9 - ANXIETY DISORDER, UNSPECIFIED Status: Acute Priority: Medium Current Visit: No (6) Prostate cancer SNOMED Code(s): 602954602 Code(s): C61 - MALIGNANT NEOPLASM OF PROSTATE Status: Acute Priority: Medium Current Visit: No Annotation/Comment:: history of; s/p prostatectomy (7) S/P prostatectomy SNOMED Code(s): 693019053, 99083260, 342336159 Code(s): Z90.79 - ACQUIRED ABSENCE OF OTHER GENITAL ORGAN(S) Status: Acute Priority: Medium Current Visit: No (8) Mass of sphenoid sinus SNOMED Code(s): 148715868 Code(s): R22.0 - LOCALIZED SWELLING, MASS AND LUMP, HEAD Status: Acute Priority: Medium Current Visit: No (9) Spontaneous pneumothorax SNOMED Code(s): 87527191 Code(s): J93.83 - OTHER PNEUMOTHORAX Status: Acute Priority: High Current Visit: No Onset Date: 12/02/13 Annotation/Comment:: right - Problem List Review Problem List Initiated/Reviewed/Updated: Yes - My Orders Last 24 Hours: My Active Orders 09/04/16 13:29 Ready for Discharge [RC] PER UNIT ROUTINE - Plan Plan:: S/P Lt TKA with Dr. Patel: POD #2 -Pain management and DVT prophylax per primary team; pain under better control with adjustment of pain medications per Ortho -PT/OT -IS/C&DB postop Other chronic conditions: Stable, continue home medications GERD- PPI HLD Migraine Anxiety Hx prostate ca s/p prostatectomy Hx spenoid sinus mas hx spontaneous pneumothorax in 2013- repeat CXR negative, sats WNL, B/P WNL Other: CM/SW for dc planning assistance Patient is Full Code Patient ok for discharge today from hospitalist standpoint.
--- NOTE | 2016-09-05 08:41 | PCM.SURGPN ---
- General Info Date of Service: 09/05/16 POD#: 2 Functional Status: Reports: tolerating diet, ambulating, urinating, other (The pt reports improved pain control.) - Review of Systems General: Denies: Fever, Chills Musculoskeletal: Reports: other (The pt feels prepared for discharge to home today.) - Patient Data Vitals - most recent: Last Vital Signs Temp 99.6 F 09/05/16 04:00 Pulse 92 09/05/16 03:56 Resp 17 09/05/16 03:56 BP 146/70 H 09/05/16 03:56 Pulse Ox 96 09/05/16 03:56 Weight - most recent: 220 lb I&O - last 24 hours: Intake & Output 09/04/16 09/05/16 09/05/16 22:59 06:59 14:59 Intake Total 600 Output Total 1300 650 Balance -700 -650 Lab Results last 24 hrs: Laboratory Results - last 24 hr 09/04/16 Range/Units 11:45 Urine Color Light yellow (Yellow) Urine Appearance Clear (Clear) Urine pH 7.0 (5.0-8.0) Ur Specific [place] 1.015 (1.005-1.030) Urine Protein Negative (Negative) Urine Glucose (UA) Negative (Negative) Urine Ketones Negative (Negative) Urine Occult Blood Trace-intact H (Negative) Urine Nitrite Negative (Negative) Urine Bilirubin Negative (Negative) Urine Urobilinogen 0.2 (0.2-1.0) Ur Leukocyte Esterase Negative (Negative) Urine RBC 0-5 (0-5) /hpf Urine WBC 0-5 (0-5) /hpf Ur Epithelial Cells Not seen (0-5) /hpf Urine Bacteria Not seen (FEW) /hpf Urine Mucus Not seen (FEW) /hpf Med Orders - Current: Current Medications Acetaminophen (Tylenol) 650 mg PO Q4H PRN PRN Reason: Headache Last Admin: 09/04/16 01:21 Dose: 650 mg Al Hydroxide/Mg Hydroxide (Mag-Al Plus) 30 ml PO Q4H PRN PRN Reason: Heartburn Last Admin: 09/04/16 11:59 Dose: 30 ml Aspirin (Ecotrin) 325 mg PO BID [facility] Last Admin: 09/04/16 20:44 Dose: 325 mg Bisacodyl (Dulcolax) 5 mg PO DAILY PRN PRN Reason: Constipation Cholecalciferol (Vitamin D3) 1,000 units PO BEDTIME [facility] Last Admin: 09/04/16 20:43 Dose: Not Given Cyclobenzaprine HCl (Flexeril) 10 mg PO TID PRN PRN Reason: Spasms Last Admin: 09/05/16 00:56 Dose: 10 mg Docusate Sodium (Colace) 100 mg PO BID [facility] Last Admin: 09/04/16 20:44 Dose: 100 mg Fentanyl (Duragesic) 50 mcg TRDERM Q72H [facility] Last Admin: 09/03/16 11:46 Dose: Not Given Fish Oil (Fish Oil) 2 gm PO BEDTIME [facility] Last Admin: 09/04/16 20:44 Dose: 2 gm Lactated Ringer's (Ringers, Lactated) 1,000 mls @ 125 mls/hr IV ASDIRECTED [facility] Last Admin: 09/03/16 06:35 Dose: 125 mls/hr Magnesium Hydroxide (Milk Of Magnesia) 30 ml PO BID PRN PRN Reason: Constipation Miscellaneous Information (Remove Patch) 1 ea TRDERM Q72H ONE Stop: 09/06/16 07:01 Miscellaneous Information (Remove Patch) 0 ea TRDERM Q72H [facility] Last Admin: 09/04/16 08:10 Dose: Not Given Morphine Sulfate (Morphine) 2 mg IVPUSH Q2H PRN PRN Reason: Breakthrough Pain Last Admin: 09/04/16 20:44 Dose: 2 mg Multivitamins (Thera) 1 each PO WITHBREAKFAST [facility] Last Admin: 09/04/16 08:05 Dose: 1 each Nortriptyline HCl (Nortriptyline) 20 mg PO BEDTIME [facility] Last Admin: 09/04/16 20:42 Dose: Not Given Ondansetron HCl (Zofran) 4 mg IVPUSH Q6H PRN PRN Reason: Nausea/Vomiting Last Admin: 09/04/16 09:17 Dose: 4 mg Oxycodone HCl (Oxycodone) 5 mg PO Q6H PRN PRN Reason: Pain Last Admin: 09/05/16 07:29 Dose: 5 mg Oxycodone/Acetaminophen (Percocet 325-5 Mg) 1 - 2 tab PO Q4H PRN PRN Reason: Pain Last Admin: 09/05/16 03:52 Dose: 2 tab Pantoprazole Sodium (Protonix) 40 mg PO BEDTIME [facility] Last Admin: 09/04/16 20:42 Dose: Not Given Fenofibrate Nanocrystallized [ Tricor] 48 Mg 0 each PO BEDTIME [facility] Last Admin: 09/04/16 20:42 Dose: Not Given Ubidecarenone [Co Q- (10] 10 Mg) 0 each PO BEDTIME [facility] Last Admin: 09/04/16 20:42 Dose: Not Given Senna (Senna) 8.6 mg PO BID PRN PRN Reason: Constipation Sildenafil Citrate (Revatio) 20 mg PO BEDTIME [facility] Last Admin: 09/04/16 20:43 Dose: Not Given Simvastatin (Zocor) 10 mg PO BEDTIME [facility] Last Admin: 09/04/16 20:43 Dose: Not Given Sodium Chloride (Saline Flush) 10 ml FLUSH ASDIRECTED PRN PRN Reason: Keep Vein Open Last Admin: 09/04/16 13:02 Dose: 10 ml Discontinued Medications Bupivacaine HCl (Marcaine 0.25%) Confirm Administered Dose 30 ml .ROUTE .STK- MED ONE Stop: 09/03/16 06:19 Last Admin: 09/03/16 08:50 Dose: 30 ml Cefazolin Sodium (Ancef) Confirm Administered Dose 2 gm .ROUTE .STK-MED ONE Stop: 09/03/16 06:19 Last Admin: 09/03/16 08:45 Dose: 2 gm Cefazolin Sodium (Ancef) Confirm Administered Dose 2 gm .ROUTE .STK-MED ONE Stop: 09/03/16 07:37 Morphine Sulfate 8 mg/Epinephrine HCl 0.3 mg/Cefuroxime Sodium 750 mg/Ketorolac Tromethamine 30 mg/Sodium Chloride 27.9 ml 0 mg .XX ONETIME ONE Stop: 09/03/16 08:01 Last Admin: 09/03/16 20:31 Dose: Not Given Famotidine (Pepcid) 20 mg PO Q12H [facility] Fentanyl (Sublimaze) Confirm Administered Dose 100 mcg .ROUTE .STK-MED ONE Stop: 09/03/16 09:40 Hydromorphone HCl (Dilaudid) 0.5 mg IM ONETIME ONE Stop: 09/03/16 10:34 Last Admin: 09/03/16 11:45 Dose: Not Given Cefazolin Sodium/Dextrose 2 gm (/ Premix) 50 mls @ 100 mls/hr IV Q8H [facility] Stop: 09/04/16 06:59 Last Admin: 09/04/16 07:18 Dose: 100 mls/hr Lidocaine HCl (Xylocaine-Mpf 1%) Confirm Administered Dose 2 mls @ as directed .ROUTE .STK-MED ONE Stop: 09/03/16 07:43 Lactated Ringer's (Ringers, Lactated) Confirm Administered Dose 1,000 mls @ as directed .ROUTE .STK-MED ONE Stop: 09/03/16 09:15 Iodine (Iodine 2% Mild Tincture) Confirm Administered Dose 30 ml .ROUTE .STK- MED ONE Stop: 09/03/16 06:19 Last Admin: 09/03/16 08:39 Dose: 18 ml Ketorolac Tromethamine (Toradol) 15 mg IVPUSH Q6H PRN PRN Reason: Pain Stop: 09/03/16 15:01 Ketorolac Tromethamine (Toradol) 15 mg IVPUSH Q6H PRN PRN Reason: Pain Stop: 09/03/16 22:31 Last Admin: 09/04/16 02:20 Dose: 15 mg Ketorolac Tromethamine (Toradol) 15 mg IVPUSH ONETIME ONE Stop: 09/04/16 14:04 Last Admin: 09/04/16 14:15 Dose: 15 mg Ketorolac Tromethamine (Toradol) 15 mg IVPUSH ONETIME ONE Stop: 09/04/16 20:58 Last Admin: 09/05/16 05:26 Dose: 15 mg Ketorolac Tromethamine (Toradol) Confirm Administered Dose 30 mg .ROUTE .STK- MED ONE Stop: 09/05/16 05:23 Last Admin: 09/05/16 05:25 Dose: Not Given Lidocaine/Sodium Bicarbonate (Buffered Lidocaine 1% In Ns 8.4%) 0.25 ml IV ONETIME PRN PRN Reason: Prior to IV Start Last Admin: 09/03/16 06:35 Dose: 0.25 ml Midazolam HCl (Versed 1 Mg/Ml) Confirm Administered Dose 2 mg .ROUTE .STK-MED ONE Stop: 09/03/16 07:15 Morphine Sulfate (Duramorph Pf) Confirm Administered Dose 10 mg .ROUTE .STK-MED ONE Stop: 09/03/16 07:15 Naloxone HCl (Narcan) 0.1 mg IVPUSH Q5M PRN PRN Reason: Oversedation Stop: 09/03/16 10:16 Ondansetron HCl (Zofran) 4 mg IVPUSH ONETIME ONE Stop: 09/03/16 10:31 Last Admin: 09/03/16 10:40 Dose: 4 mg Oxycodone HCl (Oxycodone) 10 mg PO Q6H PRN PRN Reason: Pain Propofol (Diprivan 20 Ml) Confirm Administered Dose 200 mg .ROUTE .STK-MED ONE Stop: 09/03/16 07:42 Propofol (Diprivan 20 Ml) Confirm Administered Dose 200 mg .ROUTE .STK-MED ONE Stop: 09/03/16 07:57 Propofol (Diprivan 20 Ml) Confirm Administered Dose 200 mg .ROUTE .STK-MED ONE Stop: 09/03/16 08:36 Propofol (Diprivan 20 Ml) Confirm Administered Dose 200 mg .ROUTE .STK-MED ONE Stop: 09/03/16 09:04 Scopolamine (Transderm-Scop) 1.5 mg TRDERM ONETIME ONE Stop: 09/03/16 07:01 Last Admin: 09/03/16 07:00 Dose: 1.5 mg Tranexamic Acid (Cyklokapron) Confirm Administered Dose 1,000 mg .ROUTE .STK- MED ONE Stop: 09/03/16 06:18 Last Admin: 09/03/16 09:00 Dose: 1,000 mg - Exam Wound/Incisions: dressing dry and intact General: alert, cooperative. No: no acute distress Lungs: Normal respiratory effort Extremities: normal pulses, other (NVS intact. Alicia's negative. Near independent SLR LLE.). No: no calf tenderness - Problem List Review Problem List Initiated/Reviewed/Updated: Yes - My Orders Last 24 Hours: Active Orders 24 hr Category Date Time Status Communication Order [RC] ASDIRECTED Care 09/04/16 18:21 Active Pulse Oximetry [RC] ASDIRECTED Care 09/04/16 10:53 Active Ready for Discharge [RC] PER UNIT ROUTINE Care 09/04/16 13:29 Inactive Ready for Discharge [RC] PER UNIT ROUTINE Care 09/05/16 08:31 Ordered Aspirin [Ecotrin] Med 09/04/16 09:00 Active 325 mg PO BID Remove Patch Med 09/06/16 07:00 Once 1 ea TRDERM Q72H ONE oxyCODONE Med 09/04/16 14:03 Active 5 mg PO Q6H PRN Medication Orders Acetaminophen (Tylenol) 650 mg PO Q4H PRN PRN Reason: Headache Last Admin: 09/04/16 01:21 Dose: 650 mg Al Hydroxide/Mg Hydroxide (Mag-Al Plus) 30 ml PO Q4H PRN PRN Reason: Heartburn Last Admin: 09/04/16 11:59 Dose: 30 ml Admin: 09/04/16 01:14 Dose: 30 ml Aspirin (Ecotrin) 325 mg PO BID [facility] Last Admin: 09/04/16 20:44 Dose: 325 mg Admin: 09/04/16 08:05 Dose: 325 mg Bisacodyl (Dulcolax) 5 mg PO DAILY PRN PRN Reason: Constipation Cholecalciferol (Vitamin D3) 1,000 units PO BEDTIME [facility] Last Admin: 09/04/16 20:43 Dose: Not Given Admin: 09/03/16 20:54 Dose: Not Given Cyclobenzaprine HCl (Flexeril) 10 mg PO TID PRN PRN Reason: Spasms Last Admin: 09/05/16 00:56 Dose: 10 mg Admin: 09/04/16 16:06 Dose: 10 mg Admin: 09/04/16 08:05 Dose: 10 mg Admin: 09/03/16 20:33 Dose: 10 mg Docusate Sodium (Colace) 100 mg PO BID [facility] Last Admin: 09/04/16 20:44 Dose: 100 mg Admin: 09/04/16 08:05 Dose: 100 mg Admin: 09/03/16 20:33 Dose: 100 mg Fentanyl (Duragesic) 50 mcg TRDERM Q72H [facility] Last Admin: 09/03/16 11:46 Dose: Fish Oil (Fish Oil) 2 gm PO BEDTIME [facility] Last Admin: 09/04/16 20:44 Dose: 2 gm Admin: 09/03/16 21:00 Dose: 2 gm Lactated Ringer's (Ringers, Lactated) 1,000 mls @ 125 mls/hr IV ASDIRECTED [facility] Last Admin: 09/03/16 06:35 Dose: 125 mls/hr Magnesium Hydroxide (Milk Of Magnesia) 30 ml PO BID PRN PRN Reason: Constipation Miscellaneous Information (Remove Patch) 1 ea TRDERM Q72H ONE Stop: 09/06/16 07:01 Miscellaneous Information (Remove Patch) 0 ea TRDERM Q72H [facility] Last Admin: 09/04/16 08:10 Dose: Morphine Sulfate (Morphine) 2 mg IVPUSH Q2H PRN PRN Reason: Breakthrough Pain Last Admin: 09/04/16 20:44 Dose: 2 mg Admin: 09/04/16 12:59 Dose: 2 mg Admin: 09/04/16 10:59 Dose: 2 mg Multivitamins (Thera) 1 each PO WITHBREAKFAST [facility] Last Admin: 09/04/16 08:05 Dose: 1 each Nortriptyline HCl (Nortriptyline) 20 mg PO BEDTIME [facility] Last Admin: 09/04/16 20:42 Dose: Not Given Admin: 09/03/16 20:53 Dose: Not Given Ondansetron HCl (Zofran) 4 mg IVPUSH Q6H PRN PRN Reason: Nausea/Vomiting Last Admin: 09/04/16 09:17 Dose: 4 mg Oxycodone HCl (Oxycodone) 5 mg PO Q6H PRN PRN Reason: Pain Last Admin: 09/05/16 07:29 Dose: 5 mg Admin: 09/04/16 22:42 Dose: 5 mg Admin: 09/04/16 16:06 Dose: 5 mg Oxycodone/Acetaminophen (Percocet 325-5 Mg) 1 - 2 tab PO Q4H PRN PRN Reason: Pain Last Admin: 09/05/16 03:52 Dose: 2 tab Admin: 09/04/16 18:09 Dose: 2 tab Admin: 09/04/16 14:04 Dose: 2 tab Admin: 09/04/16 09:20 Dose: 2 tab Pantoprazole Sodium (Protonix) 40 mg PO BEDTIME [facility] Last Admin: 09/04/16 20:42 Dose: Not Given Admin: 09/03/16 20:53 Dose: Not Given Fenofibrate Nanocrystallized [ Tricor] 48 Mg 0 each PO BEDTIME [facility] Last Admin: 09/04/16 20:42 Dose: Not Given Admin: 09/03/16 20:54 Dose: Not Given Ubidecarenone [Co Q- (10] 10 Mg) 0 each PO BEDTIME [facility] Last Admin: 09/04/16 20:42 Dose: Not Given Admin: 09/03/16 20:55 Dose: Not Given Senna (Senna) 8.6 mg PO BID PRN PRN Reason: Constipation Sildenafil Citrate (Revatio) 20 mg PO BEDTIME [facility] Last Admin: 09/04/16 20:43 Dose: Not Given Admin: 09/03/16 20:55 Dose: Not Given Simvastatin (Zocor) 10 mg PO BEDTIME [facility] Last Admin: 09/04/16 20:43 Dose: Not Given Admin: 09/03/16 20:54 Dose: Not Given Sodium Chloride (Saline Flush) 10 ml FLUSH ASDIRECTED PRN PRN Reason: Keep Vein Open Last Admin: 09/04/16 13:02 Dose: 10 ml Admin: 09/04/16 10:58 Dose: 10 ml Admin: 09/04/16 09:22 Dose: 10 ml Admin: 09/03/16 15:49 Dose: 10 ml - Assessment Assessment (Free Text/Narrative):: POD#2 - left TKA - Plan Plan (Free Text/Narrative):: 1. The pt reports his pain is better controlled and he is prepared for discharge. 2. 325mg ASA BID for VTE prophylaxis. Discussed the importance of frequent mobility. 3. d/c to home today. The pt will have the assistance of his . 4. The pt has been cleared for d/c by Hospitalist service also. The pt's case was discussed with Dr. Patel.
[2016-09-05] MEDS: Multivitamins,Therapeutic Tab PO SCH (09:08)
[2016-09-05] MEDS: Aspirin 325 MG Tab.EC PO SCH (09:08)
[2016-09-05] MEDS: Docusate Sodium 100 MG Cap PO SCH (09:08)
[2016-09-05] MEDS: Acetaminophen 325 MG Tab PO PRN (12:27)
--- NOTE | 2016-09-06 07:31 | PCM.OPNOTE ---
- General Post-Op/Procedure Note Date of Surgery/Procedure: 09/03/16 Operative Procedure(s): left total knee arthroplasty Pre Op Diagnosis: left knee osteoarthrosis Post-Op Diagnosis: Same Anesthesia Technique: Local, MAC, Spinal Primary Surgeon: Claude Paetl Anesthesia Provider: Tyron Siu Medicine Man: Carol Werner Medicine Man: Zahira Rea EBL in mLs: 700 Complications: None Condition: Good Free Text/Narrative:: Intake & Output 09/05/16 09/06/16 09/06/16 22:59 06:59 14:59 Intake Total 1370 Balance 1370
--- NOTE | 2016-09-06 08:12 | OR ---
DATE OF OPERATION: 09/03/2016 SURGEON: Claude Patel MD OPERATION PERFORMED: Left total knee arthroplasty. PREOPERATIVE DIAGNOSIS: Left knee osteoarthrosis. POSTOPERATIVE DIAGNOSIS: Left knee osteoarthrosis. ANESTHESIA: Local MAC with spinal. ANESTHESIA PROVIDER: Tyron Siu MD SHEETMETAL PATTERNMAKER: Carol Werner PA-C and Zahira Rea LPN ESTIMATED BLOOD LOSS: 700 mL COMPLICATIONS: None. CONDITION: Stable. IMPLANTS: 1. Shubham size 6 PS femur. 2. Shubham size 6 universal tibial baseplate. 3. Shubham size 6 of 11 mm X3 PS polyethylene. 4. 35 x 10 mm [place] asymmetric patella. DESCRIPTION OF PROCEDURE: The patient was identified in the preop holding area. Proper site was marked and identified by the surgeon. The patient was taken back to the operating theater. After adequate anesthesia, the patient's left lower extremity had a nonsterile tourniquet applied and it was then sterilely prepped and draped in the usual sterile fashion. OR timeout was performed. The patient received 2 g IV Ancef. At this time, left lower extremity was exsanguinated. Tourniquet was insufflated to 300 mmHg. Standard medial parapatellar incision was made. Medial parapatellar arthrotomy was created. Deep fibers of the MCL were raised and anterior fat pad was resected. At this time, attention was turned to the patella. Patella measured 25, it was resected to a 15 per 35 x 10 mm patella. Drill holes were then drilled and found to be in adequate position. The drill was then drilled in the distal femur and the intramedullary distal femoral cutting guide was then placed. 10 mm was resected off the distal femur and was found to be an adequate resection. Sizing guide was placed. It was found to be a size 6 femur that was shown on the implant record at the beginning of this dictation. The drill holes were drilled for the epicondylar axis using [place] line and epicondyles as reference. At this time, the 4-in-1 cutting block was placed. An anterior posterior and anterior and posterior chamfer cuts were then completed. The correct size box cut was then placed and the box cut was completed and found to be an adequate resection. Attention was turned to the tibia. The posterior medial lateral retractors were placed. The extramedullary tibial guide was placed. It was placed in the old footprint of the ACL. It was aligned with the center of the ankle and 0 degrees of slope, 9 mm was then resected off the unaffected lateral side. There was found to be an acceptable reduction. At this time, posterior osteophytes were removed along with medial and lateral meniscus. A trial implant was placed with a correct sized tibia that was mentioned at the beginning of the dictation. An 11 mm trial spacer was placed and an 11 mm X3 polyethylene was then placed. The patient's knee was brought through range of motion. The patella was tracking centrally and was stable to varus and valgus stress. Alignment was found to be roughly at 0 degrees. At this time, cement was mixed on the back table. The tibia was stamped and drilled in proper rotation. All cut surfaces were irrigated with pulse lavage irrigation with Ancef and then completely dried. Once this was completed, then the cement was ready. The universal tibial base plate was cemented in place. Next, the left femur cemented into place and the 11 mm X3 polyethylene was placed. The patient's knee was brought into full extension. Excess cement was removed. The patella was then cemented in place at this time. Tourniquet was deflated. One liter dilute Betadine solution was irrigated through the knee along with 3 L of pulse lavage irrigation with Ancef. Periarticular injection was then completed. The patient's knee was brought through a range of motion. Once the cement had time to set up and it was found to be stable to varus valgus stress, the patella was tracking centrally with full range of motion. At this time, a #2 barbed suture was used for closure of the medial parapatellar arthrotomy. Topical tranexamic acid was placed. 2-0 Vicryl was used subcutaneously, a running 3-0 Monocryl was used subcuticularly. The patient tolerated the procedure well and was sent to the PACU in stable condition. DERIK /[id number]
--- NOTE | 2016-09-07 06:46 | PCM.DCSUM1 ---
Discharge Summary - Hospital Course Brief History: Neel is a 60 yo male who underwent left TKA with Dr. Patel on 2016. The procedure was completed under spinal anesthesia with MAC. The pt tolerated the procedure well and was admitted to the [facility] under Medical- Surgical status. The pt received Ancef [place]-operatively. He participated in P.T. and O.T. and progressed well. He was allowed to WBAT and used a FWW for mobility. The pt's surgical wound remained was dressed with a Mepilex dressing and remained clean and dry. On POD#1, the pt was started on 325mg ASA BID for VTE prophylaxis. The pt used TEDs and SCDs also. On POD#1, the pt's hemoglobin was 12.5. Medial management was provided by the Hospitalist service and the pt's hospital course was uneventful. On POD#2, the pt was deemed appropriate for discharge to home with his family. - Discharge Data Discharge Date: 09/05/16 Discharge Disposition: Home, Self-Care 01 Condition: Good - Patient Summary/Data Operative Procedure(s) Performed: left total knee arthroplasty Consults: Consultations 09/03/16 06:10 Consult to Case Management [CONS] Routine Consult to Physician [CONS] Routine OT Evaluation and Treatment [CONS] Routine 09/03/16 06:13 PT Evaluation and Treatment [CONS] Routine - Patient Instructions Diet: Usual Diet as Tolerated Activity: Apply Ice, As Tolerated, Elevate Extremity, Full Weight Bearing Driving: Do Not Drive Showering/Bathing: May Shower Wound/Incision Care: Keep Operative Site/Wound Site Clean and Dry, Do NOT Change Dressing Notify Provider of: Fever, Increased Pain, Swelling and Redness, Drainage, Nausea and/or Vomiting Other/Special Instructions: Please get up and moving around every hour while awake. This helps to prevent blood clots. Please use your walker. Take the blood thinner medication as directed. Schedule for P.T. Complete the exercises that were taught to you in the Hospital. Use the pain medication as needed. The medication may cause drowsiness and constipation. Contact your primary care provider for instructions if you are constipated. You may use a stool softener like docusate sodium or Colace 100mg twice daily and/or a laxative like polyethylene glycol or Miralax daily for constipation. Wear the HAIR hose during the day and you may remove these at night. Elevate the limb to decrease swelling. Place ice to the knee often. Have a towel between your skin and the blue cooling pad. Schedule an appointment with your primary care provider for 'routine post-op care'. Call the Clinic with questions or concerns - [phone]. - Discharge Plan Prescriptions/Med Rec: Acetaminophen/oxyCODONE [Percocet 325-5 MG] 1 - 2 tab PO Q4H PRN #60 tablet PRN Reason: Pain Aspirin [Ecotrin] 325 mg PO BID #90 tab.ec Cyclobenzaprine [Flexeril] 10 mg PO TID PRN #40 tablet PRN Reason: muscle spasms oxyCODONE 5 mg PO Q6H PRN #30 tablet PRN Reason: Pain Home Medications: Home Meds Fenofibrate Nanocrystallized [Tricor] 48 mg PO BEDTIME 12/02/13 [History] [place]-3S/DHA/Epa/Fish Oil/D3 [Fish Hxl-[place]-2-Vit D Softgel] 2 each PO BEDTIME 12/02/13 [History] Omeprazole [Prilosec] 20 mg PO BEDTIME 12/02/13 [History] Ubidecarenone [Co Q-10] 10 mg PO BEDTIME 12/02/13 [History] Lovastatin 20 mg PO BEDTIME 03/26/15 [History] Nortriptyline 20 mg PO BEDTIME 05/08/16 [History] Sildenafil [Revatio] 20 mg PO BEDTIME 05/08/16 [History] Cholecalciferol (Vitamin D3) [Vitamin D3] 1,000 unit PO BEDTIME 08/31/16 [ History] Acetaminophen/oxyCODONE [Percocet 325-5 MG] 1 - 2 tab PO Q4H PRN #60 tablet 09/17 [Rx] Aspirin [Ecotrin] 325 mg PO BID #90 tab.ec 09/04/16 [Rx] Cyclobenzaprine [Flexeril] 10 mg PO TID PRN #40 tablet 09/04/16 [Rx] oxyCODONE 5 mg PO Q6H PRN #30 tablet 09/04/16 [Rx] Patient Handouts: Cyclobenzaprine tablets, Acetaminophen; Oxycodone capsules, Total Knee Replacement, Care After, [id number], Total Knee Replacement, Easy- to-Read, Aspirin, ASA oral tablets, Knee Rehabilitation Guidelines Following Surgery Referrals: Carol Werner PA-C [Physician Aoc Director Combat Operations Officer] - Neli Pineda PA-C [Primary Care Provider] - - Patient Data Vitals - Most Recent: Last Vital Signs Temp 99.6 F 09/05/16 04:00 Pulse 92 09/05/16 03:56 Resp 17 09/05/16 03:56 BP 146/70 H 09/05/16 03:56 Pulse Ox 96 09/05/16 03:56 Weight - Most Recent: 231 lb 6.4 oz Med Orders - Current: Current Medications Discontinued Medications Acetaminophen (Tylenol) 650 mg PO Q4H PRN PRN Reason: Headache Last Admin: 09/05/16 12:27 Dose: 650 mg Al Hydroxide/Mg Hydroxide (Mag-Al Plus) 30 ml PO Q4H PRN PRN Reason: Heartburn Last Admin: 09/04/16 11:59 Dose: 30 ml Aspirin (Ecotrin) 325 mg PO BID ELIANE Last Admin: 09/05/16 09:08 Dose: 325 mg Bisacodyl (Dulcolax) 5 mg PO DAILY PRN PRN Reason: Constipation Bupivacaine HCl (Marcaine 0.25%) Confirm Administered Dose 30 ml .ROUTE .STK- MED ONE Stop: 09/03/16 06:19 Last Admin: 09/03/16 08:50 Dose: 30 ml Cefazolin Sodium (Ancef) Confirm Administered Dose 2 gm .ROUTE .STK-MED ONE Stop: 09/03/16 06:19 Last Admin: 09/03/16 08:45 Dose: 2 gm Cefazolin Sodium (Ancef) Confirm Administered Dose 2 gm .ROUTE .STK-MED ONE Stop: 09/03/16 07:37 Cholecalciferol (Vitamin D3) 1,000 units PO BEDTIME [facility] Last Admin: 09/04/16 20:43 Dose: Not Given Morphine Sulfate 8 mg/Epinephrine HCl 0.3 mg/Cefuroxime Sodium 750 mg/Ketorolac Tromethamine 30 mg/Sodium Chloride 27.9 ml 0 mg .XX ONETIME ONE Stop: 09/03/16 08:01 Last Admin: 09/03/16 20:31 Dose: Not Given Cyclobenzaprine HCl (Flexeril) 10 mg PO TID PRN PRN Reason: Spasms Last Admin: 09/05/16 12:27 Dose: 10 mg Docusate Sodium (Colace) 100 mg PO BID [facility] Last Admin: 09/05/16 09:08 Dose: 100 mg Famotidine (Pepcid) 20 mg PO Q12H [facility] Fentanyl (Sublimaze) Confirm Administered Dose 100 mcg .ROUTE .STK-MED ONE Stop: 09/03/16 09:40 Fentanyl (Duragesic) 50 mcg TRDERM Q72H [facility] Last Admin: 09/03/16 11:46 Dose: Not Given Fish Oil (Fish Oil) 2 gm PO BEDTIME [facility] Last Admin: 09/04/16 20:44 Dose: 2 gm Hydromorphone HCl (Dilaudid) 0.5 mg IM ONETIME ONE Stop: 09/03/16 10:34 Last Admin: 09/03/16 11:45 Dose: Not Given Lactated Ringer's (Ringers, Lactated) 1,000 mls @ 125 mls/hr IV ASDIRECTED [facility] Last Admin: 09/03/16 06:35 Dose: 125 mls/hr Cefazolin Sodium/Dextrose 2 gm (/ Premix) 50 mls @ 100 mls/hr IV Q8H [facility] Stop: 09/04/16 06:59 Last Admin: 09/04/16 07:18 Dose: 100 mls/hr Lidocaine HCl (Xylocaine-Mpf 1%) Confirm Administered Dose 2 mls @ as directed .ROUTE .STK-MED ONE Stop: 09/03/16 07:43 Lactated Ringer's (Ringers, Lactated) Confirm Administered Dose 1,000 mls @ as directed .ROUTE .STK-MED ONE Stop: 09/03/16 09:15 Iodine (Iodine 2% Mild Tincture) Confirm Administered Dose 30 ml .ROUTE .STK- MED ONE Stop: 09/03/16 06:19 Last Admin: 09/03/16 08:39 Dose: 18 ml Ketorolac Tromethamine (Toradol) 15 mg IVPUSH Q6H PRN PRN Reason: Pain Stop: 09/03/16 15:01 Ketorolac Tromethamine (Toradol) 15 mg IVPUSH Q6H PRN PRN Reason: Pain Stop: 09/03/16 22:31 Last Admin: 09/04/16 02:20 Dose: 15 mg Ketorolac Tromethamine (Toradol) 15 mg IVPUSH ONETIME ONE Stop: 09/04/16 14:04 Last Admin: 09/04/16 14:15 Dose: 15 mg Ketorolac Tromethamine (Toradol) 15 mg IVPUSH ONETIME ONE Stop: 09/04/16 20:58 Last Admin: 09/05/16 05:26 Dose: 15 mg Ketorolac Tromethamine (Toradol) Confirm Administered Dose 30 mg .ROUTE .STK- MED ONE Stop: 09/05/16 05:23 Last Admin: 09/05/16 05:25 Dose: Not Given Lidocaine/Sodium Bicarbonate (Buffered Lidocaine 1% In Ns 8.4%) 0.25 ml IV ONETIME PRN PRN Reason: Prior to IV Start Last Admin: 09/03/16 06:35 Dose: 0.25 ml Magnesium Hydroxide (Milk Of Magnesia) 30 ml PO BID PRN PRN Reason: Constipation Midazolam HCl (Versed 1 Mg/Ml) Confirm Administered Dose 2 mg .ROUTE .STK-MED ONE Stop: 09/03/16 07:15 Miscellaneous Information (Remove Patch) 1 ea TRDERM Q72H ONE Stop: 09/06/16 07:01 Miscellaneous Information (Remove Patch) 0 ea TRDERM Q72H [facility] Last Admin: 09/04/16 08:10 Dose: Not Given Morphine Sulfate (Morphine) 2 mg IVPUSH Q2H PRN PRN Reason: Breakthrough Pain Last Admin: 09/04/16 20:44 Dose: 2 mg Morphine Sulfate (Duramorph Pf) Confirm Administered Dose 10 mg .ROUTE .STK-MED ONE Stop: 09/03/16 07:15 Multivitamins (Thera) 1 each PO WITHBREAKFAST [facility] Last Admin: 09/05/16 09:08 Dose: 1 each Naloxone HCl (Narcan) 0.1 mg IVPUSH Q5M PRN PRN Reason: Oversedation Stop: 09/03/16 10:16 Nortriptyline HCl (Nortriptyline) 20 mg PO BEDTIME [facility] Last Admin: 09/04/16 20:42 Dose: Not Given Ondansetron HCl (Zofran) 4 mg IVPUSH Q6H PRN PRN Reason: Nausea/Vomiting Last Admin: 09/04/16 09:17 Dose: 4 mg Ondansetron HCl (Zofran) 4 mg IVPUSH ONETIME ONE Stop: 09/03/16 10:31 Last Admin: 09/03/16 10:40 Dose: 4 mg Oxycodone HCl (Oxycodone) 10 mg PO Q6H PRN PRN Reason: Pain Oxycodone HCl (Oxycodone) 5 mg PO Q6H PRN PRN Reason: Pain Last Admin: 09/05/16 17:09 Dose: 5 mg Oxycodone/Acetaminophen (Percocet 325-5 Mg) 1 - 2 tab PO Q4H PRN PRN Reason: Pain Last Admin: 09/05/16 14:23 Dose: 2 tab Pantoprazole Sodium (Protonix) 40 mg PO BEDTIME ELIANE Last Admin: 09/04/16 20:42 Dose: Not Given Fenofibrate Nanocrystallized [ Tricor] 48 Mg 0 each PO BEDTIME ELIANE Last Admin: 09/04/16 20:42 Dose: Not Given Ubidecarenone [Co Q- (10] 10 Mg) 0 each PO BEDTIME ELIANE Last Admin: 09/04/16 20:42 Dose: Not Given Propofol (Diprivan 20 Ml) Confirm Administered Dose 200 mg .ROUTE .STK-MED ONE Stop: 09/03/16 07:42 Propofol (Diprivan 20 Ml) Confirm Administered Dose 200 mg .ROUTE .STK-MED ONE Stop: 09/03/16 07:57 Propofol (Diprivan 20 Ml) Confirm Administered Dose 200 mg .ROUTE .STK-MED ONE Stop: 09/03/16 08:36 Propofol (Diprivan 20 Ml) Confirm Administered Dose 200 mg .ROUTE .STK-MED ONE Stop: 09/03/16 09:04 Scopolamine (Transderm-Scop) 1.5 mg TRDERM ONETIME ONE Stop: 09/03/16 07:01 Last Admin: 09/03/16 07:00 Dose: 1.5 mg Senna (Senna) 8.6 mg PO BID PRN PRN Reason: Constipation Sildenafil Citrate (Revatio) 20 mg PO BEDTIME ELIANE Last Admin: 09/04/16 20:43 Dose: Not Given Simvastatin (Zocor) 10 mg PO BEDTIME ELIANE Last Admin: 09/04/16 20:43 Dose: Not Given Sodium Chloride (Saline Flush) 10 ml FLUSH ASDIRECTED PRN PRN Reason: Keep Vein Open Last Admin: 09/04/16 13:02 Dose: 10 ml Tranexamic Acid (Cyklokapron) Confirm Administered Dose 1,000 mg .ROUTE .[facility]- MED ONE Stop: 09/03/16 06:18 Last Admin: 09/03/16 09:00 Dose: 1,000 mg *Q Meaningful Use (DIS) - VTE *Q VTE Criteria *Q: - Stroke *Q Stroke Criteria *Q: - AMI *Q AMI Criteria *Q:
== END 2016-09-05 17:20 | disposition home or self-care (01) | DRG 302 ==
LOC: JD.OB 05:59 → JD.MS 09-05 09:04
PROVIDERS: ADMIT Orthopaedic Surgery; ATTEND Orthopaedic Surgery
PROC: 0SRD0J9 Replacement of Left Knee Joint with Synthetic Substitute, Cemented, Open Approach (ICD-10-PCS; principal; 2016-09-03)
DX: M17.12 Unilateral primary osteoarthritis, left knee (principal); E78.5 Hyperlipidemia, unspecified; K21.9 Gastro-esophageal reflux disease without esophagitis; F41.9 Anxiety disorder, unspecified; Z79.899 Other long term (current) drug therapy; M19.90 Unspecified osteoarthritis, unspecified site; C61 Malignant neoplasm of prostate; Z90.79 Acquired absence of other genital organ(s); R22.0 Localized swelling, mass and lump, head
CPT/HCPCS: 01402; 36415; 71020; 71020-26; 73560-26-LT; 73560-LT; 80053; 81001; 85025; 87641; 94762; 97110-GP; 97116-GP; 97161-GP; 97165-GO; 97535-GO; A9270-GY; C1713; C1776; J0171; J0690; J0697; J1885; J2250; J2270; J2405; J2704; J3010; J3490; J7050; J7120

== ENCOUNTER 2016-09-09 21:42 | Emergency (ER) | payer BC ==
[2016-09-09 22:21] VITALS: BP 173/88
--- NOTE | 2016-09-09 22:39 | EDM.PDOC ---
ED HPI Trauma - General Chief Complaint: Lower Extremity Injury/Pain Stated Complaint: SWOLLEN THIGH,KNEE REPLCEMENT SATURDAY Time Seen by Provider: 09/09/16 22:26 Source: Reports: Patient, Family () History Limitations: Reports: No limitations - History of Present Illness INITIAL COMMENTS - FREE TEXT/NARRATIVE: 60-year-old male presents the ED for evaluation of swollen left lower extremity. Of note he underwent total knee replacement with Dr. Rob solano 6 days ago in our hospital. He is wearing HAIR stockings. He is taking 8 aspirin once daily. He appreciated marked increased swelling of his left mid and distal thigh tonight after taking off his HAIR stockings. Concern was for the development of a DVT Symptom Onset Date: 09/09/16 Occurred When: other (Today) Occurred Where: home Method of Injury: other (He is 6 days postop total left knee replacement.) Severity: moderate Pain/Injury Location: Reports: lower extremity, left Associated Symptoms: Reports: no other symptoms Allergies/ADRs: Allergies No Known Allergies Allergy (Verified 08/31/16 10:44) Home Medications: Ambulatory Orders Fenofibrate Nanocrystallized [Tricor] 48 mg PO BEDTIME 12/02/13 [Confirmed 09/09] [place]-3S/DHA/Epa/Fish Oil/D3 [Fish Snn-Nwlkp-3-Vit D Softgel] 2 each PO BEDTIME 12/02/13 [Confirmed 09/09/16] Omeprazole [Prilosec] 20 mg PO BEDTIME 12/02/13 [Confirmed 09/09/16] Ubidecarenone [Co Q-10] 10 mg PO BEDTIME 12/02/13 [Confirmed 09/09/16] Lovastatin 20 mg PO BEDTIME 03/26/15 [Confirmed 09/09/16] Nortriptyline 10 mg PO BEDTIME 05/08/16 [Confirmed 09/09/16] Sildenafil [Revatio] 20 mg PO BEDTIME 05/08/16 [Confirmed 09/09/16] Cholecalciferol (Vitamin D3) [Vitamin D3] 1,000 unit PO BEDTIME 08/31/16 [ Confirmed 09/09/16] Acetaminophen/oxyCODONE [Percocet 325-5 MG] 1 - 2 tab PO Q4H PRN #60 tablet 09/17 [Confirmed 09/09/16] Cyclobenzaprine [Flexeril] 10 mg PO TID PRN #40 tablet 09/04/16 [Confirmed 09/09] oxyCODONE 5 mg PO Q6H PRN #30 tablet 09/04/16 [Confirmed 09/09/16] Aspirin [Ecotrin] 325 mg PO BID 09/09/16 [Confirmed 09/09/16] Past Medical History HEENT History: Reports: Impaired vision Other HEENT History: cerumen impaction, wears glasses, 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 INSTRUCTOR History: Reports: None Musculoskeletal History: Reports: Arthritis, Osteoarthritis Other Musculoskeletal History: carpal tunnel syndrome, hip pain, joint pain, laminectomy 91,93, L knee cartilage repair 71, R toe pain, low back strain Neurological History: Reports: Migraines Psychiatric History: Reports: Anxiety Endocrine/Metabolic History: Reports: None Hematologic History: Reports: None Immunologic History: Reports: None Oncologic (Cancer) History: Reports: Prostate Other Dermatologic History: sebaceous cyst, onchomycosis, epidermal cyst - Past Surgical History Head Surgeries/Procedures: Reports: None HEENT Surgical History: Reports: Tonsillectomy Respiratory Surgical History: Reports: Pleurodesis GI Surgical History: Reports: Colonoscopy Male Surgical History: Reports: Prostatectomy, Vasectomy Other Musculoskeletal Surgeries/Procedures:: bulging disks/laminectomy, L carpal tunnel surgery, knee surgery Social & Family History - Family History Family Medical History: Noncontributory - Tobacco Use Smoking Status *Q: Never Smoker Second Hand Smoke Exposure: No - Caffeine Use Caffeine Use: Reports: Coffee, Soda - Alcohol Use Days Per Week of Alcohol Use: 7 Number of Drinks Per Day: 1 Total Drinks Per Week: 7 - Recreational Drug Use Recreational Drug Use: No Drug Use in Last 12 Months: No - Living Situation & Occupation Living situation: Reports: Occupation: employed Review of Systems - Review of Systems Review Of Systems: See Below Constitutional: Reports: no symptoms Eyes: Reports: no symptoms Ears: Reports: no symptoms Nose: Reports: no symptoms Mouth/Throat: Reports: no symptoms Respiratory: Reports: Shortness of Breath (On exertion. Has a history of pulmonary hypertension.) Cardiovascular: Reports: no symptoms GI/Abdominal: Reports: No symptoms Trauma Exam - Physical Exam Exam: See Below Exam Limited By: No limitations General Appearance: Reports: alert, WD/WN, no apparent distress Head: Reports: atraumatic, normocephalic Respiratory Exam: Reports: no respiratory distress, lungs clear, normal breath sounds, no accessory muscle use, respiratory distress (Mild tachypnea which I) Cardiovascular: Reports: normal peripheral pulses, regular rate, rhythm ( mild tachycardia dressed.), tachycardia ( felt was secondary to being mildly anxious. ), other (Does have mild edema of the left lower extremity as one would expect postop total knee replacement 6 days ago.) GI/Abdominal: Reports: normal bowel sounds, soft, non tender, no organomegaly Extremities: Reports: other (Inspection of the left lower extremity shows some erythema medial aspect of the knee which is warm to palpation. His midline dressings are still in place with tape superiorly. There is mild edema of the calf but it is not tense or clot. There is ecchymosis of the distal one half of the thigh again not expected postop total knee replacement. The thigh itself is pliable and is not toxic or tense. I can find no significant tenderness along the distribution of the greater saphenous vein. My overall sense is no evidence of DVT clinically.) Neurologic: Reports: no motor/sensory deficits, alert, normal mood/affect, oriented x 3 Skin: Reports: Normal color, Warm/dry Course - Vital Signs Last Recorded V/S: Last Vital Signs Temp 36.9 C 09/09/16 22:20 Pulse 104 H 09/09/16 22:20 Resp 20 09/09/16 22:20 BP 173/88 H 09/09/16 22:20 Pulse Ox 96 09/09/16 22:20 - Orders/Labs/Meds Orders: Active Orders 24 hr Category Date Time Status VL Duplex Lwr Ext Veins Ltd Lt [US] Stat Exams 09/09/16 22:36 Taken - Radiology Interpretation Free Text/Narrative:: 60-year-old male presents the ED with some concerns about swelling of his increased proximal fine. But he was wearing HAIR stockings and appears to me that fluid accumulated at the part top part of his HAIR stockings and produced increased swelling of his proximal 5 raising concerns for possible DVT. Of note he is 6 days post total knee replacement. Now using only one aspirin daily for the discharge instruction said to be taking 2 -- 325 mg aspirins daily. Clinically active find no evidence of deep venous thrombosis. No tenderness no discharge the greater saphenous vein. However due to the patient's history pulmonary hypertension in his apprehension a Doppler ultrasound will be obtained of the left lower extremity. - Re-Assessments/Exams Free Text/Narrative Re-Assessment/Exam: 09/10/16 00:09 Doppler ultrasound hasn't been completed on the left lower extremity. It is essentially unremarkable no DVT in the common femoral femoral and proximal deep femoral or popliteal veins identified. The superficial veins were also unremarkable. No thrombus is visualized in the greater saphenous vein. Coincidental 2.3 cm x 1.8 cm reactive lymph node noted in the left inguinal canal with adjacent smaller lymph node measuring 9.5 mm in its longitudinal axis. In light of the history of recent prostate cancer surgery further investigation and monitoring was no obvious lymphadenopathy is in order. Patient reassured about the negative DVT. His initial dressings will be remain in place until he follows up with Dr. Mederos in 2 days time. Departure - Departure Time of Disposition: 23:52 Disposition: Home, Self-Care 01 Condition: fair Clinical Impression: Swelling of left lower extremity Instructions: Edema Referrals: Claude Patel MD [Primary Care Provider] - Forms: ED Department Discharge Additional Instructions: Evaluation carried out in the emergency room tonight in regards to increased swelling of the left thigh postop total knee replacement 6 days ago. As you indicated the seemed to be a increased fluid collection at the top of the HAIR stockings as were wearing today. Overall the wound itself is covered up by dressings usually orthopedic surgeons like to remove them on her own dressings at time of recheck. There is mild increased redness medial aspect of the knee which is not uncommon due to the inflammatory response of the surgery. The calf itself is not hot or tense to suggest deep venous thrombosis. I can find no localized abdominal tenderness along the distribution of the greater saphenous vein. There is a good deal of ecchymoses or bruising in the distal left thigh which would be expected postoperatively. Doppler ultrasound was carried out and did not reveal any evidence of deep venous thrombosis in the left extremity. At this time treatment is to continue the 325 mg Meryl Aspirin twice daily. Review with Dr. Mederos early this week as planned. - My Orders Last 24 Hours: My Active Orders 09/09/16 22:36 Duplex Lwr Ext Veins Ltd Lt [US] Stat - Assessment/Plan Last 24 Hours: My Active Orders 09/09/16 22:36 Duplex Lwr Ext Veins Ltd Lt [US] Stat
--- NOTE | 2016-09-10 07:42 | US ---
Left lower extremity deep venous ultrasound: Duplex and color flow imaging was obtained of the left common femoral, proximal greater saphenous, superficial femoral, popliteal, posterior tibial and peroneal veins. Right common femoral vein was also evaluated. Two incidental left-sided inguinal lymph nodes are seen which show nothing to be abnormal. Normal phasic flow, augmentation and compression are seen. Impression: 1. No evidence of deep venous thrombosis within the left lower extremity or within the right common femoral vein. 2. Two lymph nodes felt to be incidental within the left inguinal region. Diagnostic code #2 I agree with preliminary report issued by [employer] (preliminary report dictated on 09/10/16, 1:01 AM Central Time)
== END 2016-09-10 00:04 | disposition home or self-care (01) ==
LOC: JD.ED 21:42 → SUPCPDRO 21:42 → JD.ED 09-10 00:04
DX: E78.00 Pure hypercholesterolemia, unspecified (principal); K21.9 Gastro-esophageal reflux disease without esophagitis; M19.90 Unspecified osteoarthritis, unspecified site; F41.9 Anxiety disorder, unspecified
CPT/HCPCS: 93971-26-LT; 93971-LT; 99282; 99283-25; 99284-25

== ENCOUNTER 2018-07-26 08:58 | Emergency (ER) | payer BC ==
[2018-07-26 09:11] VITALS: BP 129/100
[2018-07-26] MEDS ORDERED: Sodium Chloride 0.9% 10 ML Syringe FLUSH PRN (09:21)
[2018-07-26] MEDS ORDERED: Ondansetron 4 MG/2 ML SDV IVPUSH ONE (09:21)
[2018-07-26] MEDS ORDERED: Sodium Chloride 0.9% 1,000 ML IV STA (09:21)
[2018-07-26] MEDS ORDERED: HYDROmorphone 1 MG/ML Syringe IVPUSH ONE (09:22)
[2018-07-26] MEDS ORDERED: Sodium Chloride 0.9% 1,000 ML IV ONE (10:24)
--- NOTE | 2018-07-26 10:40 | EDM.PDOC ---
ED HPI GENERAL MEDICAL PROBLEM - General Chief Complaint: Gastrointestinal Problem Stated Complaint: VOMITING/DIARRHEA/ABD PAIN Time Seen by Provider: 07/26/18 09:10 Source of Information: Reports: Patient, Family History Limitations: Reports: No Limitations - History of Present Illness INITIAL COMMENTS - FREE TEXT/NARRATIVE: The patient presents with nausea, vomiting, diarrhea and stomach cramps. This all started about 24 hours ago. He has not been able to keep much down. He has no fever but chills at times. He has no chest pain, cough, shortness of breath or muscle aches. He has been doing lots of traveling lately and attending conferences in the past week. He has been around lots of people but does not think he ate any bad food. He still has his appendix and gallbladder. He has no dysuria. Onset: Gradual Duration: Hour(s): (24) Location: Reports: Abdomen Quality: Reports: Ache (and cramping) Severity: Moderate Improves with: Reports: None Worsens with: Reports: None Associated Symptoms: Reports: Fever/Chills, Nausea/Vomiting. Denies: Chest Pain , Cough, Headaches, Shortness of Breath lower abdomen Pain Score (Numeric/FACES): 5 - Related Data Allergies Allergy/AdvReac Type Severity Reaction Status Date / Time anesthetics AdvReac Mild Vomiting Uncoded 07/26/18 09:11 Home Meds: Home Meds Fenofibrate Nanocrystallized [Tricor] 48 mg PO BEDTIME 12/02/13 [History] [place]-3S/DHA/Epa/Fish Oil/D3 [Fish Kdc-Tklli-6-Vit D Softgel] 2 each PO BEDTIME 12/02/13 [History] Ubidecarenone [Co Q-10] 10 mg PO BEDTIME 12/02/13 [History] Lovastatin 20 mg PO BEDTIME 03/26/15 [History] Nortriptyline 20 mg PO BEDTIME 05/08/16 [History] Cholecalciferol (Vitamin D3) [Vitamin D3] 1,000 unit PO BEDTIME 08/31/16 [ History] Fluticasone Propionate [Flonase] 1 spray NASBOTH DAILY 02/09/18 [History] Montelukast [Singulair] 10 mg PO DAILY 02/09/18 [History] Omeprazole 20 mg PO DAILY 07/26/18 [History] Ondansetron [Zofran ODT] 4 mg PO Q6H PRN #20 tab.dis 07/26/18 [Rx] Past Medical History HEENT History: Reports: Impaired Vision Other HEENT History: cerumen impaction, wears glasses, 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 Cardiovascular History: Reports: High Cholesterol Respiratory History: Reports: Pneumothorax Other Respiratory History: Right spontaneous pneumothorax resulting in chest tube placement, followed by talc pleurodesis 2013, seasonal allergies Gastrointestinal History: Reports: GERD, Other (See Below) Other Gastrointestinal History: gastroenteritis Genitourinary History: Reports: Prostate Disorder, Other (See Below) 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 PARAFFINER History: Reports: 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 Musculoskeletal History: Reports: Arthritis, Osteoarthritis Other Musculoskeletal History: carpal tunnel syndrome, hip pain, joint pain, laminectomy 91,93, L knee cartilage repair 71, R toe pain, low back strain Neurological History: Reports: Migraines Other Neuro History: [place] virus Fall 2017 Psychiatric History: Reports: Anxiety Endocrine/Metabolic History: Reports: None, Obesity/BMI 30+, Vitamin D Deficiency Hematologic History: Reports: None Immunologic History: Reports: None Oncologic (Cancer) History: Reports: Prostate Other Dermatologic History: sebaceous cyst, onchomycosis, epidermal cyst - Infectious Disease History Infectious Disease History: Reports: Measles, Mononucleosis - Past Surgical History Head Surgeries/Procedures: Reports: None Respiratory Surgical History: Reports: Pleurodesis GI Surgical History: Reports: Colonoscopy Male Surgical History: Reports: Prostatectomy Other Male Surgeries/Procedures: Prostate CA 01/04/2016 Musculoskeletal Surgical History: Reports: Knee Replacement Other Musculoskeletal Surgeries/Procedures:: bulging disks/laminectomy, L carpal tunnel surgery, knee surgery L knee replacement Social & Family History - Family History Family Medical History: Noncontributory - Tobacco Use Smoking Status *Q: Never Smoker - Caffeine Use Caffeine Use: Reports: Coffee - Recreational Drug Use Recreational Drug Use: No - Living Situation & Occupation Living situation: Reports: Occupation: Employed ED ROS GENERAL - Review of Systems Review Of Systems: See Below Constitutional: Reports: No Symptoms HEENT: Reports: No Symptoms Respiratory: Reports: No Symptoms Cardiovascular: Reports: No Symptoms Endocrine: Reports: No Symptoms GI/Abdominal: Reports: Abdominal Pain, Diarrhea, Nausea, Vomiting : Reports: No Symptoms Musculoskeletal: Reports: No Symptoms ED EXAM, GI/ABD - Physical Exam Exam: See Below Exam Limited By: No Limitations General Appearance: Alert, No Apparent Distress Ears: Normal External Exam Nose: Normal Inspection Head: Atraumatic, Normocephalic Neck: Normal Inspection Respiratory/Chest: No Respiratory Distress, Lungs Clear, Normal Breath Sounds Cardiovascular: Regular Rate, Rhythm, No Edema, No Murmur GI/Abdominal Exam: Soft, Non-Tender, No Organomegaly, No Mass Course - Vital Signs Last Recorded V/S: Last Vital Signs Temp 98 F 07/26/18 09:00 Pulse 88 07/26/18 09:00 Resp 18 07/26/18 09:00 BP 129/100 H 07/26/18 09:00 Pulse Ox 95 07/26/18 09:00 - Orders/Labs/Meds Orders: Active Orders 24 hr Category Date Time Status Peripheral IV Care [RC] . DIRECTED Care 07/26/18 09:21 Active Sodium Chloride 0.9% [Saline Flush] Med 07/26/18 09:21 Active 10 ml FLUSH ASDIRECTED PRN ED Antiemetic Medication Reflex [OM.PC] Stat Oth 07/26/18 09:21 Ordered Peripheral IV Insertion Adult [OM.PC] Stat Oth 07/26/18 09:21 Ordered Medication Orders Sodium Chloride (Saline Flush) 10 ml FLUSH ASDIRECTED PRN PRN Reason: Keep Vein Open Last Admin: 07/26/18 09:37 Dose: 10 ml Labs: Laboratory Tests 07/26/18 07/26/18 07/26/18 Range/Units 09:35 09:35 10:44 WBC 9.41 H (4.23-9.07) K/mm3 RBC 5.60 (4.63-6.08) M/mm3 Hgb 17.2 (13.7-17.5) gm/L Hct 48.9 (40.1-51.0) % MCV 87.3 (79.0-92.2) fl MCH 30.7 (25.7-32.2) pg MCHC 35.2 (32.2-35.5) g/dl RDW Std Deviation 40.7 (35.1-43.9) fL Plt Count 333 (163-337) K/mm3 MPV 9.6 (9.4-12.3) fl Neut % (Auto) 82.4 H (34.0-67.9) % Lymph % (Auto) 9.8 L (21.8-53.1) % [place] % (Auto) 7.0 (5.3-12.2) % Eos % (Auto) 0.5 L (0.8-7.0) Baso % (Auto) 0.2 (0.1-1.2) % Neut # (Auto) 7.75 H (1.78-5.38) K/mm3 Lymph # (Auto) 0.92 L (1.32-3.57) K/mm3 Stanley # (Auto) 0.66 (0.30-0.82) K/mm3 Eos # (Auto) 0.05 (0.04-0.54) K/mm3 Baso # (Auto) 0.02 (0.01-0.08) K/mm3 Manual Slide Review Abnormal smear Sodium 136 (136-145) mEq/L Potassium 3.6 (3.5-5.1) mEq/L Chloride 99 (98-107) mEq/L Carbon Dioxide 24 (21-32) mEq/L Anion Gap 16.6 H (5-15) BUN 14 (7-18) mg/dL Creatinine 1.1 (0.7-1.3) mg/dL Est Cr Clr Drug Dosing 68.74 mL/min Estimated GFR (MDRD) > 60 (>60) mL/min BUN/Creatinine Ratio 12.7 L (14-18) Glucose 131 H (80-115) mg/dL Calcium 9.8 (8.5-10.1) mg/dL Total Bilirubin 1.0 (0.2-1.0) mg/dL AST 37 (15-37) U/L ALT 78 H (16-63) U/L Alkaline Phosphatase 48 (46-116) U/L Total Protein 7.7 (6.4-8.2) g/dl Albumin 4.1 (3.4-5.0) g/dl Globulin 3.6 gm/dL Albumin/Globulin Ratio 1.1 (1-2) Lipase 54 L (73-393) U/L Urine Color Yellow (Yellow) Urine Appearance Clear (Clear) Urine pH 7.0 (5.0-8.0) Ur Specific [place] 1.015 (1.005-1.030) Urine Protein 1+ H (Negative) Urine Glucose (UA) Negative (Negative) Urine Ketones Negative (Negative) Urine Occult Blood Negative (Negative) Urine Nitrite Negative (Negative) Urine Bilirubin Negative (Negative) Urine Urobilinogen 1.0 (0.2-1.0) Ur Leukocyte Esterase Negative (Negative) Urine RBC Not seen (0-5) /hpf Urine WBC 0-5 (0-5) /hpf Ur Epithelial Cells Not seen (0-5) /hpf Amorphous Sediment Moderate H (NOT SEEN) /hpf Urine Bacteria Moderate H (FEW) /hpf Urine Mucus Moderate H (FEW) /hpf Meds: Medications Generic Name Dose Route Start Last Admin Trade Name Freq PRN Reason Stop Dose Admin Sodium Chloride 10 ml 07/26/18 09:21 07/26/18 09:37 Saline Flush FLUSH 10 ml ASDIRECTED PRN Administration Keep Vein Open Discontinued Medications Generic Name Dose Route Start Last Admin Trade Name Freq PRN Reason Stop Dose Admin Al Hydroxide/Mg Hydroxide 30 ml 07/26/18 10:53 07/26/18 10:58 Mag-Al Plus PO 07/26/18 10:54 30 ml ONETIME ONE Administration Hydromorphone HCl 0.5 mg 07/26/18 09:22 07/26/18 09:37 Dilaudid IVPUSH 07/26/18 09:23 0.5 mg ONETIME ONE Administration Sodium Chloride 1,000 mls @ 1,000 mls/hr 07/26/18 09:21 07/26/18 09:37 Normal Saline IV 07/26/18 10:20 1,000 mls/hr .BOLUS STA Administration Sodium Chloride 1,000 mls @ 1,000 mls/hr 07/26/18 10:24 07/26/18 10:48 Normal Saline IV 07/26/18 11:23 1,000 mls/hr ONETIME ONE Administration Ondansetron HCl 4 mg 07/26/18 09:21 07/26/18 09:37 Zofran IVPUSH 07/26/18 09:22 4 mg ONETIME ONE Administration - Re-Assessments/Exams Free Text/Narrative Re-Assessment/Exam: 07/26/18 10:39 I ordered an IV NS 1L bolus, zofran 4mg IV, dilaudid 0.5mg IV, labs, UA and stool studies. His WBC was normal at 9.41. His anion gap was elevated at 16.6. His glucose was elevated at 131. His ALT was up slightly at 78. His lipase was normal. He feels much better. I will give him another liter of fluid. 07/26/18 11:56 His UA shows no UTI. Departure - Departure Time of Disposition: 12:00 Disposition: Home, Self-Care 01 Condition: Good Clinical Impression: Gastroenteritis - Discharge Information *PRESCRIPTION DRUG MONITORING PROGRAM REVIEWED*: Not Applicable *COPY OF PRESCRIPTION DRUG MONITORING REPORT IN PATIENT CLARISSE: Not Applicable Prescriptions: Ondansetron [Zofran ODT] 4 mg PO Q6H PRN #20 tab.dis PRN Reason: Nausea\vomiting Referrals: Elgin Vaughn PA [Primary Care Provider] - 1 Week Forms: ED Department Discharge Additional Instructions: Drink plenty of fluid such as water and gatorade/powerade. Try to avoid to much soda and juice. They have lots of sugar and that can make your diarrhea worse. Advance your diet as tolerated. Start with some crackers and go from there. Please return if you are worse. - My Orders Last 24 Hours: My Active Orders 07/26/18 09:21 Peripheral IV Care [RC] . DIRECTED Sodium Chloride 0.9% [Saline Flush] 10 ml FLUSH ASDIRECTED PRN ED Antiemetic Medication Reflex [OM.PC] Stat Peripheral IV Insertion Adult [OM.PC] Stat - Assessment/Plan Last 24 Hours: My Active Orders 07/26/18 09:21 Peripheral IV Care [RC] . DIRECTED Sodium Chloride 0.9% [Saline Flush] 10 ml FLUSH ASDIRECTED PRN ED Antiemetic Medication Reflex [OM.PC] Stat Peripheral IV Insertion Adult [OM.PC] Stat
[2018-07-26] MEDS ORDERED: Aluminum Hydroxide/Magnesium Hydroxide/Simethicone Susp 30 ML Cup PO ONE (10:53)
== END 2018-07-26 12:15 | disposition home or self-care (01) ==
LOC: JD.ED 08:58
DX: K52.9 Noninfective gastroenteritis and colitis, unspecified (principal); E66.9 Obesity, unspecified; Z88.4 Allergy status to anesthetic agent
CPT/HCPCS: 36415; 80053; 81001; 83690; 85025; 96361; 96374; 96375; 99284; A9270; J1170; J2405; J7040

== ENCOUNTER 2020-02-07 13:43 | Emergency (ER) | payer MEDICARE, BC ==
[2020-02-07 13:57] VITALS: BP 178/91; PULSE 74
--- NOTE | 2020-02-07 16:45 | EDM.PDOC ---
ED HPI GENERAL MEDICAL PROBLEM - General Chief Complaint: Respiratory Problem Stated Complaint: SOB,RT SIDE BACK SPASAMS Time Seen by Provider: 02/07/20 14:05 Source of Information: Reports: Patient History Limitations: Reports: No Limitations - History of Present Illness INITIAL COMMENTS - FREE TEXT/NARRATIVE: Patient is a 64-year-old male presenting to the emergency department with complaints of a one-week history of intermittent shortness of breath, as well as intermittent pain and muscle spasms in his right upper back as well as occasionally in his right anterior chest. Pain is not present at this time, however he states that he has had a couple muscle spasms in his right upper back since he is been here. Patient is concerned because a few years back he had a spontaneous pneumothorax in the right side and states that his symptoms were similar to what he is experiencing now. He denies any significant cardiac history. He states that he has not done any heavy lifting, however he did bike 12 miles through the [employer] [employer] yesterday and thought maybe his back spasms were related to leaning forward while biking. He denies any fever, chills, cough, nausea, vomiting, or diarrhea. Right Upper Back Pain Score (Numeric/FACES): 4 - Related Data Allergies Allergy/AdvReac Type Severity Reaction Status Date / Time anesthetics AdvReac Mild Vomiting Uncoded 02/07/20 13:57 Home Meds: Home Meds Fenofibrate Nanocrystallized [Tricor] 48 mg PO BEDTIME 12/02/13 [History] [place]-3S/DHA/Epa/Fish Oil/D3 [Fish Qlo-Qabgc-7-Vit D Softgel] 2 each PO BEDTIME 12/02/13 [History] Ubidecarenone [Co Q-10] 10 mg PO BEDTIME 12/02/13 [History] Lovastatin 20 mg PO BEDTIME 03/26/15 [History] Nortriptyline 20 mg PO BEDTIME 05/08/16 [History] Cholecalciferol (Vitamin D3) [Vitamin D3] 1,000 unit PO BEDTIME 08/31/16 [History] Fluticasone Propionate [Flonase] 1 spray NASBOTH DAILY 02/09/18 [History] Montelukast [Singulair] 10 mg PO DAILY 02/09/18 [History] Omeprazole 20 mg PO DAILY 07/26/18 [History] Ondansetron [Zofran ODT] 4 mg PO Q6H PRN #20 tab.dis 07/26/18 [Rx] Cyclobenzaprine [Flexeril] 5 mg PO Q8H PRN #10 tab 02/07/20 [Rx] Past Medical History HEENT History: Reports: Impaired Vision Other HEENT History: cerumen impaction, wears glasses, 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 Cardiovascular History: Reports: High Cholesterol Respiratory History: Reports: Pneumothorax Other Respiratory History: Right spontaneous pneumothorax resulting in chest tube placement, followed by talc pleurodesis 2013, seasonal allergies Gastrointestinal History: Reports: GERD, Other (See Below) Other Gastrointestinal History: gastroenteritis Genitourinary History: Reports: Prostate Disorder, Other (See Below) FIELD SERVICER History: Reports: None Musculoskeletal History: Reports: Arthritis, Osteoarthritis Other Musculoskeletal History: carpal tunnel syndrome, hip pain, joint pain, laminectomy 91,93, L knee cartilage repair 71, R toe pain, low back strain Neurological History: Reports: Migraines Other Neuro History: [place] virus Fall 2017 Psychiatric History: Reports: Anxiety Endocrine/Metabolic History: Reports: None, Obesity/BMI 30+, Vitamin D Deficiency Hematologic History: Reports: None Immunologic History: Reports: None Oncologic (Cancer) History: Reports: Prostate Other Dermatologic History: sebaceous cyst, onchomycosis, epidermal cyst - Infectious Disease History Infectious Disease History: Reports: Measles, Mononucleosis - Past Surgical History Head Surgeries/Procedures: Reports: None Respiratory Surgical History: Reports: Pleurodesis GI Surgical History: Reports: Colonoscopy Male Surgical History: Reports: Prostatectomy Other Male Surgeries/Procedures: Prostate CA 01/04/2016 Musculoskeletal Surgical History: Reports: Knee Replacement Other Musculoskeletal Surgeries/Procedures:: bulging disks/laminectomy, L carpal tunnel surgery, knee surgery L knee replacement 2016 Social & Family History - Family History Family Medical History: Noncontributory - Tobacco Use Smoking Status *Q: Never Smoker Second Hand Smoke Exposure: No - Caffeine Use Caffeine Use: Reports: None - Recreational Drug Use Recreational Drug Use: No - Living Situation & Occupation Living situation: Reports: Occupation: Employed ED ROS GENERAL - Review of Systems Review Of Systems: See Below Constitutional: Reports: No Symptoms. Denies: Fever, Chills HEENT: Reports: No Symptoms Respiratory: Reports: Shortness of Breath (Occasional). Denies: Wheezing, Cough Cardiovascular: Reports: Chest Pain (Occasional right-sided) Endocrine: Reports: No Symptoms GI/Abdominal: Reports: No Symptoms : Reports: No Symptoms Musculoskeletal: Reports: Back Pain (Intermittent right upper back with muscle spasms.) Skin: Reports: No Symptoms Neurological: Reports: No Symptoms Psychiatric: Reports: No Symptoms Hematologic/Lymphatic: Reports: No Symptoms Immunologic: Reports: No Symptoms ED EXAM, GENERAL - Physical Exam Exam: See Below Exam Limited By: No Limitations General Appearance: Alert, WD/WN, No Apparent Distress Respiratory/Chest: No Respiratory Distress, Lungs Clear, Normal Breath Sounds, No Accessory Muscle Use, Chest Non-Tender Cardiovascular: Normal Peripheral Pulses, Regular Rate, Rhythm, No Edema, No Gallop, No JVD, No Murmur, No Rub Back Exam: Normal Inspection, Full Range of Motion, Other (Mild tenderness to the right upper back near the scapula.) Extremities: Normal Inspection, Normal Range of Motion, Non-Tender, Normal Capillary Refill, No Pedal Edema Neurological: Alert, Oriented, CN II-XII Intact, Normal Cognition, Normal Gait, Normal Reflexes, No Motor/Sensory Deficits Psychiatric: Normal Affect, Normal Mood Skin Exam: Warm, Dry, Intact, Normal Color, No Rash Course - Vital Signs Last Recorded V/S: Last Vital Signs Temp 97.9 F 02/07/20 13:53 Pulse 74 02/07/20 13:53 Resp 18 02/07/20 13:53 BP 178/91 H 02/07/20 13:53 Pulse Ox 96 02/07/20 13:53 - Orders/Labs/Meds Labs: Laboratory Tests 02/07/20 02/07/20 02/07/20 Range/Units 15:25 15:25 15:25 WBC 7.17 (4.23-9.07) K/mm3 RBC 4.71 (4.63-6.08) M/mm3 Hgb 14.7 D (13.7-17.5) gm/dl Hct 43.1 (40.1-51.0) % MCV 91.5 (79.0-92.2) fl MCH 31.2 (25.7-32.2) pg MCHC 34.1 (32.2-35.5) g/dl RDW Std Deviation 41.0 (35.1-43.9) fL Plt Count 319 (163-337) K/mm3 MPV 9.7 (9.4-12.3) fl Neut % (Auto) 52.9 (34.0-67.9) % Lymph % (Auto) 31.1 (21.8-53.1) % [place] % (Auto) 9.8 (5.3-12.2) % Eos % (Auto) 5.3 (0.8-7.0) Baso % (Auto) 0.8 (0.1-1.2) % Neut # (Auto) 3.79 (1.78-5.38) K/mm3 Lymph # (Auto) 2.23 (1.32-3.57) K/mm3 [place] # (Auto) 0.70 (0.30-0.82) K/mm3 Eos # (Auto) 0.38 (0.04-0.54) K/mm3 Baso # (Auto) 0.06 (0.01-0.08) K/mm3 D-Dimer, Quantitative < 0.19 L (0.19-0.50) mg/L Sodium 141 (136-145) mEq/L Potassium 3.4 L (3.5-5.1) mEq/L Chloride 105 (98-107) mEq/L Carbon Dioxide 27 (21-32) mEq/L Anion Gap 12.4 (5-15) BUN 12 (7-18) mg/dL Creatinine 1.2 (0.7-1.3) mg/dL Est Cr Clr Drug Dosing 63.37 mL/min Estimated GFR (MDRD) > 60 (>60) mL/min BUN/Creatinine Ratio 10.0 L (14-18) Glucose 108 (80-115) mg/dL Calcium 8.9 (8.5-10.1) mg/dL Total Bilirubin 0.5 (0.2-1.0) mg/dL AST 23 (15-37) U/L ALT 57 (16-63) U/L Alkaline Phosphatase 49 (46-116) U/L Troponin I (0.00-0.056) ng/mL Total Protein 6.7 (6.4-8.2) g/dl Albumin 3.8 (3.4-5.0) g/dl Globulin 2.9 gm/dL Albumin/Globulin Ratio 1.3 (1-2) 02/07/20 Range/Units 15:25 WBC (4.23-9.07) K/mm3 RBC (4.63-6.08) M/mm3 Hgb (13.7-17.5) gm/dl Hct (40.1-51.0) % MCV (79.0-92.2) fl MCH (25.7-32.2) pg MCHC (32.2-35.5) g/dl RDW Std Deviation (35.1-43.9) fL Plt Count (163-337) K/mm3 MPV (9.4-12.3) fl Neut % (Auto) (34.0-67.9) % Lymph % (Auto) (21.8-53.1) % [place] % (Auto) (5.3-12.2) % Eos % (Auto) (0.8-7.0) Baso % (Auto) (0.1-1.2) % Neut # (Auto) (1.78-5.38) K/mm3 Lymph # (Auto) (1.32-3.57) K/mm3 [place] # (Auto) (0.30-0.82) K/mm3 Eos # (Auto) (0.04-0.54) K/mm3 Baso # (Auto) (0.01-0.08) K/mm3 D-Dimer, Quantitative (0.19-0.50) mg/L Sodium (136-145) mEq/L Potassium (3.5-5.1) mEq/L Chloride (98-107) mEq/L Carbon Dioxide (21-32) mEq/L Anion Gap (5-15) BUN (7-18) mg/dL Creatinine (0.7-1.3) mg/dL Est Cr Clr Drug Dosing mL/min Estimated GFR (MDRD) (>60) mL/min BUN/Creatinine Ratio (14-18) Glucose (80-115) mg/dL Calcium (8.5-10.1) mg/dL Total Bilirubin (0.2-1.0) mg/dL AST (15-37) U/L ALT (16-63) U/L Alkaline Phosphatase (46-116) U/L Troponin I < 0.017 (0.00-0.056) ng/mL Total Protein (6.4-8.2) g/dl Albumin (3.4-5.0) g/dl Globulin gm/dL Albumin/Globulin Ratio (1-2) - Re-Assessments/Exams Free Text/Narrative Re-Assessment/Exam: 1640 Patient's work-up was found to be grossly unremarkable. Troponin was negative, d-dimer was negative, EKG was normal. And chest x-ray was normal. Discussed that is likely suffering from musculoskeletal pain with muscle spasms. Recommend [id number] ibuprofen as needed for pain. I will write for prescription for Flexeril as needed for muscle spasms. Discharge instructions as documented. Departure - Departure Time of Disposition: 16:41 Disposition: Home, Self-Care 01 Condition: Good Clinical Impression: Spasm of thoracic back muscle - Discharge Information *PRESCRIPTION DRUG MONITORING PROGRAM REVIEWED*: No *COPY OF PRESCRIPTION DRUG MONITORING REPORT IN PATIENT CLARISSE: No Prescriptions: Cyclobenzaprine [Flexeril] 5 mg PO Q8H PRN #10 tab PRN Reason: Muscle Spasm Instructions: Muscle Cramps and Spasms Referrals: Jamilah Wills PA-C [Primary Care Provider] - Forms: ED Department Discharge Additional Instructions: You were seen in the emergency department today for intermittent pain and muscle spasms in your right upper back as well as intermittently in your right anterior chest as well as some shortness of breath. Your work-up in the emergency department included blood work, a chest x-ray, and an EKG of your heart. Your work-up was found to be completely normal. Your chest x-ray is normal. There is no sign of pneumothorax. You are not having a heart attack and there is no signs of blood clots within your lungs. It is likely that you are experiencing muscle spasms. A prescription for Flexeril has been sent to clinic pharmacy which is open tomorrow from noon until 2 PM. Use this as prescribed. Recommend that you use [id number] Tylenol and ibuprofen as needed for pain. Heat to the area may also help reduce with the muscle spasms. If you experience any new or worsening symptoms of concern, please do not hesitate to return to the emergency department. Sepsis Event Note (ED) - Evaluation Sepsis Screening Result: No Definite Risk
--- NOTE | 2020-02-08 11:28 | CR ---
Chest: 2 views of the chest were obtained. Comparison: Prior chest x-ray of 09/04/16. Heart size is normal. Tortuous thoracic aorta is seen. Slight scarring is noted within the right lung base. Lungs otherwise are clear. No acute parenchymal change is seen. Bony structures show scattered disc space narrowing within the spine with scattered endplate osteophytes. Mild compression deformities are scattered within the spine which are stable. Impression: 1. Findings as noted above. 2. Nothing acute is appreciated. Diagnostic code #2 This report was dictated in MDT
== END 2020-02-07 16:52 | disposition home or self-care (01) ==
LOC: JD.ED 13:43
DX: M62.830 Muscle spasm of back (principal); E78.00 Pure hypercholesterolemia, unspecified; K21.9 Gastro-esophageal reflux disease without esophagitis; E66.9 Obesity, unspecified; Z88.4 Allergy status to anesthetic agent; Z79.899 Other long term (current) drug therapy
CPT/HCPCS: 36415; 71046; 71046-26; 80053; 84484; 85025; 85379; 93005; 93010; 99283; 99285-25

== ENCOUNTER 2020-08-31 14:52 | Emergency (ER) | payer MEDICARE, BC ==
[2020-08-31] MEDS ORDERED: Ondansetron 4 MG/2 ML SDV IVPUSH ONE ×2 (15:16→18:46)
[2020-08-31] MEDS ORDERED: Sodium Chloride 0.9% 1,000 ML IV STA (15:16)
[2020-08-31] MEDS ORDERED: Sodium Chloride 0.9% 10 ML Syringe FLUSH PRN (15:16)
[2020-08-31] MEDS ORDERED: HYDROmorphone 0.5 MG/0.5 ML Syringe IVPUSH ONE ×2 (15:17→16:52)
--- NOTE | 2020-08-31 15:23 | EDM.PDOC ---
ED HPI GENERAL MEDICAL PROBLEM - General Chief Complaint: Gastrointestinal Problem Stated Complaint: ABD PAIN/DIARRHEA/VOMITING Time Seen by Provider: 08/31/20 15:01 Source of Information: Reports: Patient History Limitations: Reports: No Limitations - History of Present Illness INITIAL COMMENTS - FREE TEXT/NARRATIVE: The patient presents with nausea, vomiting, diarrhea and abdominal cramping. The patient says he just got back from a road trip yesterday and starting vomiting. He has chills but no fever. He has no chest pain, shortness of breath, or cough. He still has his gall bladder and appendix. His grandson did have vomiting a couple days ago. He did not eat any bad food. Onset: Sudden Duration: Day(s): (yesterday) Location: Reports: Abdomen Quality: Reports: Other (cramping) Severity: Moderate Improves with: Reports: None Worsens with: Reports: None Associated Symptoms: Reports: Fever/Chills, Nausea/Vomiting. Denies: Chest Pain, Cough, Headaches, Shortness of Breath abdomen Pain Score (Numeric/FACES): 7 - Related Data Allergies Allergy/AdvReac Type Severity Reaction Status Date / Time anesthetics AdvReac Mild Vomiting Uncoded 08/31/20 15:07 Home Meds: Home Meds Fenofibrate Nanocrystallized [Tricor] 48 mg PO BEDTIME 12/02/13 [History] [place]-3S/DHA/Epa/Fish Oil/D3 [Fish Efc-Dxepn-1-Vit D Softgel] 2 each PO BEDTIME 12/02/13 [History] Ubidecarenone [Co Q-10] 10 mg PO BEDTIME 12/02/13 [History] Lovastatin 20 mg PO BEDTIME 03/26/15 [History] Nortriptyline 20 mg PO BEDTIME 05/08/16 [History] Cholecalciferol (Vitamin D3) [Vitamin D3] 1,000 unit PO BEDTIME 08/31/16 [History] Fluticasone Propionate [Flonase] 1 spray NASBOTH DAILY 02/09/18 [History] Montelukast [Singulair] 10 mg PO DAILY 02/09/18 [History] Omeprazole 20 mg PO DAILY 07/26/18 [History] Ondansetron [Zofran ODT] 4 mg PO Q6H PRN #20 tab.dis 07/26/18 [Rx] Cyclobenzaprine [Flexeril] 5 mg PO Q8H PRN #10 tab 02/07/20 [Rx] Ondansetron [Zofran ODT] 4 mg PO Q6H PRN #20 tab.dis 08/31/20 [Rx] Past Medical History HEENT History: Reports: Impaired Vision Other HEENT History: cerumen impaction, wears glasses, 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 Cardiovascular History: Reports: High Cholesterol Respiratory History: Reports: Pneumothorax Other Respiratory History: Right spontaneous pneumothorax resulting in chest tube placement, followed by talc pleurodesis 2013, seasonal allergies Gastrointestinal History: Reports: GERD, Other (See Below) Other Gastrointestinal History: gastroenteritis Genitourinary History: Reports: Prostate Disorder, Other (See Below) 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 Musculoskeletal History: Reports: Arthritis, Osteoarthritis Other Musculoskeletal History: carpal tunnel syndrome, hip pain, joint pain, laminectomy 91,93, L knee cartilage repair 71, R toe pain, low back strain Neurological History: Reports: Migraines Other Neuro History: [place] virus Fall 2017 Psychiatric History: Reports: Anxiety Endocrine/Metabolic History: Reports: None, Obesity/BMI 30+, Vitamin D Deficiency Hematologic History: Reports: None Immunologic History: Reports: None Oncologic (Cancer) History: Reports: Prostate Other Dermatologic History: sebaceous cyst, onchomycosis, epidermal cyst - Infectious Disease History Infectious Disease History: Reports: Measles, Mononucleosis - Past Surgical History Head Surgeries/Procedures: Reports: None HEENT Surgical History: Reports: Tonsillectomy Respiratory Surgical History: Reports: Pleurodesis GI Surgical History: Reports: Colonoscopy Male Surgical History: Reports: Prostatectomy Other Male Surgeries/Procedures: Prostate CA 01/04/2016 Musculoskeletal Surgical History: Reports: Knee Replacement Other Musculoskeletal Surgeries/Procedures:: bulging disks/laminectomy, L carpal tunnel surgery, knee surgery L knee replacement 2016 Social & Family History - Family History Family Medical History: No Pertinent Family History - Tobacco Use Tobacco Use Status *Q: Never Tobacco User - Caffeine Use Caffeine Use: Reports: None - Recreational Drug Use Recreational Drug Use: No - Living Situation & Occupation Living situation: Reports: Occupation: Employed ED ROS GENERAL - Review of Systems Review Of Systems: See Below Constitutional: Reports: No Symptoms HEENT: Reports: No Symptoms Respiratory: Reports: No Symptoms Cardiovascular: Reports: No Symptoms Endocrine: Reports: No Symptoms GI/Abdominal: Reports: Abdominal Pain, Diarrhea, Nausea, Vomiting : Reports: No Symptoms Musculoskeletal: Reports: No Symptoms ED EXAM, GI/ABD - Physical Exam Exam: See Below Exam Limited By: No Limitations General Appearance: Alert, No Apparent Distress Ears: Normal External Exam Nose: Normal Inspection Head: Atraumatic, Normocephalic Neck: Normal Inspection Respiratory/Chest: No Respiratory Distress, Lungs Clear, Normal Breath Sounds Cardiovascular: Regular Rate, Rhythm, No Edema, No Murmur GI/Abdominal Exam: Soft, No Organomegaly, No Mass, Tender (Mild to moderate generalized abdominal pain) Back Exam: Normal Inspection Extremities: Normal Inspection #1 Interpretation EKG Date: 08/31/20 Time: 16:58 Rhythm: NSR Rate (Beats/Min): 81 [place]: Normal P-Wave: Present QRS: Normal ST-T: Normal QT: Normal Course - Vital Signs Last Recorded V/S: Last Vital Signs Temp 97.5 F 08/31/20 15:01 Pulse 84 08/31/20 15:01 Resp 18 08/31/20 15:01 BP 159/92 H 08/31/20 15:01 Pulse Ox 97 08/31/20 15:01 - Orders/Labs/Meds Orders: Active Orders 24 hr Category Date Time Status EKG Documentation Completion [RC] ASDIRECTED Care 08/31/20 16:48 Active Peripheral IV Care [RC] . DIRECTED Care 08/31/20 15:16 Active Ondansetron [Zofran] Med 08/31/20 18:46 Once 4 mg IVPUSH ONETIME ONE Sodium Chloride 0.9% [Saline Flush] Med 08/31/20 18:45 Active 10 ml FLUSH ASDIRECTED Sodium Chloride 0.9% [Saline Flush] Med 08/31/20 15:16 Active 10 ml FLUSH ASDIRECTED PRN ED Antiemetic Medication Reflex [OM.PC] Stat Oth 08/31/20 15:16 Ordered Peripheral IV Insertion Adult [OM.PC] Stat Oth 08/31/20 15:16 Ordered EKG 12 Lead [EK] Stat Ther 08/31/20 16:47 Ordered Medication Orders Sodium Chloride (Sodium Chloride 0.9% 10 Ml Syringe) 10 ml FLUSH ASDIRECTED PRN PRN Reason: Keep Vein Open Last Admin: 08/31/20 15:32 Dose: 10 ml Documented by: KRIS Sodium Chloride (Sodium Chloride 0.9% 10 Ml Syringe) 10 ml FLUSH ASDIRECTED ELIANE Last Admin: 08/31/20 18:34 Dose: 10 ml Documented by: MOLLY Labs: Laboratory Tests 08/31/20 08/31/20 08/31/20 Range/Units 15:20 15:20 15:20 WBC 10.27 H (4.23-9.07) K/mm3 RBC 5.43 (4.63-6.08) M/mm3 Hgb 16.8 D (13.7-17.5) gm/dl Hct 48.3 (40.1-51.0) % MCV 89.0 (79.0-92.2) fl MCH 30.9 (25.7-32.2) pg MCHC 34.8 (32.2-35.5) g/dl RDW Std Deviation 42.2 (35.1-43.9) fL Plt Count 308 (163-337) K/mm3 MPV 9.5 (9.4-12.3) fl Neut % (Auto) 77.2 H (34.0-67.9) % Lymph % (Auto) 13.7 L (21.8-53.1) % [place] % (Auto) 7.6 (5.3-12.2) % Eos % (Auto) 1.2 (0.8-7.0) Baso % (Auto) 0.2 (0.1-1.2) % Neut # (Auto) 7.93 H (1.78-5.38) K/mm3 Lymph # (Auto) 1.41 (1.32-3.57) K/mm3 [place] # (Auto) 0.78 (0.30-0.82) K/mm3 Eos # (Auto) 0.12 (0.04-0.54) K/mm3 Baso # (Auto) 0.02 (0.01-0.08) K/mm3 Sodium 138 (136-145) mEq/L Potassium 3.3 L (3.5-5.1) mEq/L Chloride 101 (98-107) mEq/L Carbon Dioxide 22 (21-32) mEq/L Anion Gap 18.3 H (5-15) BUN 16 (7-18) mg/dL Creatinine 1.1 (0.7-1.3) mg/dL Est Cr Clr Drug Dosing 66.95 mL/min Estimated GFR (MDRD) > 60 (>60) mL/min BUN/Creatinine Ratio 14.5 (14-18) Glucose 119 H (80-115) mg/dL Calcium 9.8 (8.5-10.1) mg/dL Magnesium 1.9 (1.8-2.4) mg/dl Total Bilirubin 1.3 H (0.2-1.0) mg/dL AST 45 H (15-37) U/L ALT 102 H (16-63) U/L Alkaline Phosphatase 42 L (46-116) U/L Troponin I (0.00-0.056) ng/mL C-Reactive Protein 2.2 H* (<1.0) mg/dL Total Protein 7.5 (6.4-8.2) g/dl Albumin 4.3 (3.4-5.0) g/dl Globulin 3.2 gm/dL Albumin/Globulin Ratio 1.3 (1-2) Lipase 59 L (73-393) U/L Urine Color (Yellow) Urine Appearance (Clear) Urine pH (5.0-8.0) Ur Specific Home (1.005-1.030) Urine Protein (Negative) Urine Glucose (UA) (Negative) Urine Ketones (Negative) Urine Occult Blood (Negative) Urine Nitrite (Negative) Urine Bilirubin (Negative) Urine Urobilinogen (0.2-1.0) Ur Leukocyte Esterase (Negative) Urine RBC (0-5) /hpf Urine WBC (0-5) /hpf Ur Squamous Epith Cells (0-5) /hpf Urine Bacteria (FEW) /hpf Urine Mucus (FEW) /hpf 08/31/20 08/31/20 Range/Units 16:10 17:35 WBC (4.23-9.07) K/mm3 RBC (4.63-6.08) M/mm3 Hgb (13.7-17.5) gm/dl Hct (40.1-51.0) % MCV (79.0-92.2) fl MCH (25.7-32.2) pg MCHC (32.2-35.5) g/dl RDW Std Deviation (35.1-43.9) fL Plt Count (163-337) K/mm3 MPV (9.4-12.3) fl Neut % (Auto) (34.0-67.9) % Lymph % (Auto) (21.8-53.1) % [place] % (Auto) (5.3-12.2) % Eos % (Auto) (0.8-7.0) Baso % (Auto) (0.1-1.2) % Neut # (Auto) (1.78-5.38) K/mm3 Lymph # (Auto) (1.32-3.57) K/mm3 [place] # (Auto) (0.30-0.82) K/mm3 Eos # (Auto) (0.04-0.54) K/mm3 Baso # (Auto) (0.01-0.08) K/mm3 Sodium (136-145) mEq/L Potassium (3.5-5.1) mEq/L Chloride (98-107) mEq/L Carbon Dioxide (21-32) mEq/L Anion Gap (5-15) BUN (7-18) mg/dL Creatinine (0.7-1.3) mg/dL Est Cr Clr Drug Dosing mL/min Estimated GFR (MDRD) (>60) mL/min BUN/Creatinine Ratio (14-18) Glucose (80-115) mg/dL Calcium (8.5-10.1) mg/dL Magnesium (1.8-2.4) mg/dl Total Bilirubin (0.2-1.0) mg/dL AST (15-37) U/L ALT (16-63) U/L Alkaline Phosphatase (46-116) U/L Troponin I < 0.017 (0.00-0.056) ng/mL C-Reactive Protein (<1.0) mg/dL Total Protein (6.4-8.2) g/dl Albumin (3.4-5.0) g/dl Globulin gm/dL Albumin/Globulin Ratio (1-2) Lipase (73-393) U/L Urine Color Yellow (Yellow) Urine Appearance Clear (Clear) Urine pH 8.0 (5.0-8.0) Ur Specific Home 1.020 (1.005-1.030) Urine Protein Negative (Negative) Urine Glucose (UA) Negative (Negative) Urine Ketones Negative (Negative) Urine Occult Blood Negative (Negative) Urine Nitrite Negative (Negative) Urine Bilirubin Negative (Negative) Urine Urobilinogen 4.0 H (0.2-1.0) Ur Leukocyte Esterase Negative (Negative) Urine RBC 0-5 (0-5) /hpf Urine WBC 0-5 (0-5) /hpf Ur Squamous Epith Cells 0-5 (0-5) /hpf Urine Bacteria Few (FEW) /hpf Urine Mucus Few (FEW) /hpf Meds: Medications Generic Name Dose Route Start Last Admin Trade Name Freq PRN Reason Stop Dose Admin Sodium Chloride 10 ml 08/31/20 15:16 08/31/20 15:32 Sodium Chloride 0.9% 10 Ml Syringe FLUSH 10 ml ASDIRECTED PRN Administration Keep Vein Open Sodium Chloride 10 ml 08/31/20 18:45 08/31/20 18:34 Sodium Chloride 0.9% 10 Ml Syringe FLUSH 10 ml ASDIRECTED ELIANE Administration Discontinued Medications Generic Name Dose Route Start Last Admin Trade Name Freq PRN Reason Stop Dose Admin Al Hydroxide/Mg Hydroxide 30 0 ml 08/31/20 16:47 08/31/20 16:58 ml/ Lidocaine HCl 15 ml PO 08/31/20 16:48 45 ml ONETIME ONE Administration Diatrizoate Meglum/Diatrizoate Sod 120 ml 08/31/20 18:32 08/31/20 18:34 Diatrizoate Meglumine/Diatrizoate Sodium 37% 120 Ml Bottle PO 08/31/20 18:33 90 ml ONETIME ONE Administration Hydromorphone HCl 0.5 mg 08/31/20 15:17 08/31/20 15:31 Hydromorphone 0.5 Mg/0.5 Ml Syringe IVPUSH 08/31/20 15:18 0.5 mg ONETIME ONE Administration Hydromorphone HCl 0.5 mg 08/31/20 16:52 08/31/20 16:58 Hydromorphone 0.5 Mg/0.5 Ml Syringe IVPUSH 08/31/20 16:53 0.5 mg ONETIME ONE Administration Sodium Chloride 1,000 mls @ 1,000 mls/hr 08/31/20 15:16 08/31/20 15:32 Normal Saline IV 08/31/20 16:15 1,000 mls/hr .BOLUS STA Administration Sodium Chloride 1,000 mls @ 1,000 mls/hr 08/31/20 16:43 08/31/20 16:56 Normal Saline IV 08/31/20 17:42 1,000 mls/hr ONETIME ONE Administration Iopamidol 100 ml 08/31/20 18:32 08/31/20 18:34 Iopamidol 612 Mg/Ml 100 Ml Bottle IVPUSH 08/31/20 18:33 100 ml ONETIME ONE Administration Metoclopramide HCl 10 mg 08/31/20 17:41 08/31/20 17:49 Metoclopramide 10 Mg/2 Ml Sdv IVPUSH 08/31/20 17:42 10 mg ONETIME ONE Administration Ondansetron HCl 4 mg 08/31/20 15:16 08/31/20 15:28 Ondansetron 4 Mg/2 Ml Sdv IVPUSH 08/31/20 15:17 4 mg ONETIME ONE Administration - Re-Assessments/Exams Free Text/Narrative Re-Assessment/Exam: 08/31/20 15:24 I ordered an IV NS 1L bolus, zofran 4mg IV, dilaudid 0.5mg IV, labs and UA. 08/31/20 17:10 His WBC was elevated at 10.72. His K was low at 3.3. His anion gap was elevated at 18.3. His total bili was elevated at 1.3. His AST was elevated at 45. His ALT was elevated at 102. His CRP was elevated at 2.2. His lipase is negative. His UA shows no UTI. He was feeling better but he rolled on his side and started having some indigestion like pain in his chest and the pain came back. I ordered an EKG that shows a NSR with no acute changes. I have ordered another liter of NS, dilaudid 0.5mg IV, GI cocktail and a CT of his abdomen and pelvis with IV and oral contrast. 08/31/20 18:32 He had more nausea so I ordered reglan 10mg IV. His troponin came back negative. 08/31/20 18:[address] of his abdomen and pelvis shows nothing acute. He still has some nausea. I ordered some zofran 4mg IV. It appears he has gastroenteritis. Departure - Departure Time of Disposition: 18:50 Disposition: Home, Self-Care 01 Condition: Good Clinical Impression: Viral gastroenteritis - Discharge Information *PRESCRIPTION DRUG MONITORING PROGRAM REVIEWED*: Not Applicable *COPY OF PRESCRIPTION DRUG MONITORING REPORT IN PATIENT CLARISSE: Not Applicable Prescriptions: Ondansetron [Zofran ODT] 4 mg PO Q6H PRN #20 tab.dis PRN Reason: Nausea\vomiting Referrals: Amara Jimenes MD [Primary Care Provider] - 1 Week Forms: ED Department Discharge Additional Instructions: Drink plenty of fluids. Take the zofran 4mg by mouth every 6 hours as needed for nausea and vomiting. Advance your diet as tolerated. Please return if you are worse. Sepsis Event Note (ED) - Evaluation Sepsis Screening Result: No Definite Risk - Focused Exam Vital Signs: Vital Signs Temp Pulse Resp BP Pulse Ox 08/31/20 15:01 97.5 F 84 18 159/92 H 97 - My Orders Last 24 Hours: My Active Orders 08/31/20 15:16 Peripheral IV Care [RC] . DIRECTED Sodium Chloride 0.9% [Saline Flush] 10 ml FLUSH ASDIRECTED PRN ED Antiemetic Medication Reflex [OM.PC] Stat Peripheral IV Insertion Adult [OM.PC] Stat 08/31/20 16:47 EKG 12 Lead [EK] Stat 08/31/20 16:48 EKG Documentation Completion [RC] ASDIRECTED 08/31/20 18:45 Sodium Chloride 0.9% [Saline Flush] 10 ml FLUSH ASDIRECTED 08/31/20 18:46 Ondansetron [Zofran] 4 mg IVPUSH ONETIME ONE - Assessment/Plan Last 24 Hours: My Active Orders 08/31/20 15:16 Peripheral IV Care [RC] . DIRECTED Sodium Chloride 0.9% [Saline Flush] 10 ml FLUSH ASDIRECTED PRN ED Antiemetic Medication Reflex [OM.PC] Stat Peripheral IV Insertion Adult [OM.PC] Stat 08/31/20 16:47 EKG 12 Lead [EK] Stat 08/31/20 16:48 EKG Documentation Completion [RC] ASDIRECTED 08/31/20 18:45 Sodium Chloride 0.9% [Saline Flush] 10 ml FLUSH ASDIRECTED 08/31/20 18:46 Ondansetron [Zofran] 4 mg IVPUSH ONETIME ONE
[2020-08-31] MEDS ORDERED: Sodium Chloride 0.9% 1,000 ML IV ONE (16:43)
[2020-08-31] MEDS ORDERED: Alum Hydrox/Mag Hydrox/Simeth 30 ML, Lidocaine 2% 15 ML PO ONE ×2 (16:47)
[2020-08-31] MEDS ORDERED: Metoclopramide 10 MG/2 ML SDV IVPUSH ONE (17:41)
[2020-08-31] MEDS ORDERED: Iopamidol 612 MG/ML 100 ML Bottle IVPUSH ONE (18:32)
[2020-08-31] MEDS ORDERED: Diatrizoate Meglumine/Diatrizoate Sodium 37% 120 ML Bottle PO ONE (18:32)
[2020-08-31] MEDS ORDERED: Sodium Chloride 0.9% 10 ML Syringe FLUSH SCH (18:45)
--- NOTE | 2020-08-31 18:47 | CT ---
CT abdomen and pelvis Technique: Multiple axial sections were obtained from above the dome of the diaphragm inferiorly through the pubic symphysis. Intravenous contrast and oral contrast was utilized. Delayed images were also obtained from above the dome of the diaphragm inferiorly through the pubic symphysis. Reconstructed coronal and sagittal images were obtained. Comparison: Prior CT abdomen and pelvis exam of 02/08/18. Findings: Visualized lung bases show areas of pleural calcification. No acute parenchymal process is seen. Liver contains no focal parenchymal abnormality. Gallbladder contains no calcified gallstones. Small hiatal hernia is seen with gastroesophageal reflux of contrast into the esophagus. Spleen is normal. Adrenal glands show no nodule. Kidneys show symmetric contrast enhancement with no discrete parenchymal abnormality being seen. Delayed images show contrast within the ureters and within the bladder. Pancreas is normal. Stomach is dilated with contrast. Small amount of contrast is noted within the small bowel. Abdominal aorta shows no aneurysm. Abdominal aorta shows atherosclerotic change which continues into the iliac vessels. No retroperitoneal adenopathy is seen. Appendix is seen which is normal. No pelvic mass or adenopathy is seen. No free fluid or inflammatory change is seen. Small fat-containing bilateral partial inguinal hernias are noted. No bowel wall thickening is seen. Bone window settings were reviewed which show mild scattered degenerative change within the spine. No acute osseous finding is appreciated. Impression: 1. Findings which are felt to be incidental as noted above. 2. Nothing acute is seen. Diagnostic code #2
[2020-08-31 19:23] VITALS: BP 129/66; PULSE 86
== END 2020-08-31 19:20 | disposition home or self-care (01) ==
LOC: JD.ED 14:52
DX: A08.4 Viral intestinal infection, unspecified (principal); E78.00 Pure hypercholesterolemia, unspecified; K21.9 Gastro-esophageal reflux disease without esophagitis; E66.9 Obesity, unspecified; Z68.32 Body mass index [BMI] 32.0-32.9, adult; Z88.4 Allergy status to anesthetic agent; Z79.899 Other long term (current) drug therapy
CPT/HCPCS: 36415; 74177; 80053; 81001; 83690; 83735; 84484; 85025; 86140; 93005; 96374; 96375; 96376; 99284; A9270; J1170; J2405; J2765; J7030; Q9963; Q9967; 93010

== ENCOUNTER 2020-11-07 06:01 | Day surgery (SDC) | payer MEDICARE, BC ==
[~2020-11-07 06:01] MED LIST changes: +Lidocaine 1%/Sod Bicarbonate in NS 8.4% 1 ML Syringe IDERM PRN; -Lidocaine 1%/Sod Bicarbonate in NS 8.4% 1 ML Syringe IV PRN; +Scopolamine 1.5 MG Transdermal Patch TOP SCH; +Scopolamine 1.5 MG Transdermal Patch TRDERM PRN; +Sodium Chloride 0.9% 10 ML Syringe FLUSH PRN
[2020-11-07] MEDS ORDERED: Bupivacaine 0.25% 10 ML SDV ONE (06:21)
[2020-11-07] MEDS ORDERED: Ondansetron 4 MG/2 ML SDV ONE (06:43)
[2020-11-07] MEDS ORDERED: Propofol 200 MG/20 ML SDV ONE (06:43)
[2020-11-07] MEDS ORDERED: Midazolam 1 MG/ML 2 ML SDV ONE (06:43)
[2020-11-07] MEDS ORDERED: ceFAZolin 1 GM Vial ONE (06:43)
[2020-11-07] MEDS ORDERED: Dexamethasone 4 MG/ML 5 ML MDV ONE (06:44)
[2020-11-07] MEDS ORDERED: Lidocaine 1% 30 ML SDV ONE (06:46)
--- NOTE | 2020-11-07 07:49 | PCM.PREANE ---
Preanesthetic Assessment - Procedure Proposed Procedure: Left middle finger trigger finger release - Anesthesia/Transfusion/Family Hx Anesthesia History: Prior Anesthesia Reaction Type of Anesthesia Reaction: Excessive Nausea/Vomiting Family History of Anesthesia Reaction: No Transfusion History: No Prior Transfusion(s) - Review of Systems General: No Symptoms Pulmonary: Other (History of Pneumothroax in 2013 with surgical intervention. Baseline SPO2 94%.) Cardiovascular: No Symptoms Gastrointestinal: No Symptoms Neurological: Headache (Chronic Migraines) - Physical Assessment NPO Status Date: 11/06/20 NPO Status Time: 23:30 Vital Signs: See nursing notes. Weight: 98 kg ASA Class: 2 Mental Status: Alert & Oriented x3 Airway Class: Mallampati = 1 Dentition: Reports: Normal Dentition Thyro-Mental Finger Breadths: 3 Mouth Opening Finger Breadths: 3 ROM/Head Extension: Full Lungs: Clear to Auscultation, Normal Respiratory Effort Cardiovascular: Regular Rate, Regular Rhythm - Allergies Allergies/Adverse Reactions: Allergies Allergy/AdvReac Type Severity Reaction Status Date / Time Anesthetics - Amide Type - AdvReac Vomiting Verified 11/07/20 08:24 Select A Anesthetics - Dipti Type- AdvReac Vomiting Verified 11/07/20 08:24 Parabens - Anesthesia Plan Pre-Op Medication Ordered: Anxiolytic, Other (Scopalamine Patch) - Acknowledgements Anesthesia Type Planned: MAC Pt an Appropriate Candidate for the Planned Anesthesia: Yes Alternatives and Risks of Anesthesia Discussed w Pt/Guardian: Yes Pt/Guardian Understands and Agrees with Anesthesia Plan: Yes PreAnesthesia Questionnaire HEENT History: Reports: Impaired Vision Other HEENT History: cerumen impaction, wears glasses, 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 Cardiovascular History: Reports: High Cholesterol, Hypertension Respiratory History: Reports: Pneumothorax Other Respiratory History: Right spontaneous pneumothorax resulting in chest tube placement, followed by talc pleurodesis 2014, seasonal allergies Gastrointestinal History: Reports: GERD, Other (See Below) Other Gastrointestinal History: gastroenteritis Genitourinary History: Reports: Prostate Disorder, Other (See Below) 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 Musculoskeletal History: Reports: Arthritis, Osteoarthritis Other Musculoskeletal History: carpal tunnel syndrome, hip pain, joint pain, laminectomy 91,93, L knee cartilage repair 71, R toe pain, low back strain Neurological History: Reports: Migraines Other Neuro History: [place] virus Fall 2017 Psychiatric History: Reports: Anxiety Endocrine/Metabolic History: Reports: None, Obesity/BMI 30+, Vitamin D Deficiency Hematologic History: Reports: None Immunologic History: Reports: None Oncologic (Cancer) History: Reports: Prostate Other Dermatologic History: sebaceous cyst, onchomycosis, epidermal cyst - Infectious Disease History Infectious Disease History: Reports: Measles, Mononucleosis - Past Surgical History Head Surgeries/Procedures: Reports: None HEENT Surgical History: Reports: Tonsillectomy Respiratory Surgical History: Reports: Pleurodesis GI Surgical History: Reports: Colonoscopy Male Surgical History: Reports: Prostatectomy Other Male Surgeries/Procedures: Prostate CA 01/04/2016 Musculoskeletal Surgical History: Reports: Knee Replacement Other Musculoskeletal Surgeries/Procedures:: bulging disks/laminectomy, L carpal tunnel surgery, knee surgery L knee replacement 2016 - SUBSTANCE USE Tobacco Use Status *Q: Never Tobacco User Recreational Drug Use History: No - HOME MEDS Home Medications: Home Meds Fenofibrate Nanocrystallized [Tricor] 48 mg PO BEDTIME 12/02/13 [History] [place]-3S/DHA/Epa/Fish Oil/D3 [Fish Xen-[place]-6-Vit D Softgel] 1 each PO BEDTIME 12/02/13 [History] Ubidecarenone [Co Q-10] 10 mg PO BEDTIME 12/02/13 [History] Lovastatin 20 mg PO BEDTIME 03/26/15 [History] Nortriptyline 20 mg PO BEDTIME 05/08/16 [History] Cholecalciferol (Vitamin D3) [Vitamin D3] 1,000 unit PO BEDTIME 08/31/16 [History] Fluticasone Propionate [Flonase] 1 spray NASBOTH ASDIRECTED PRN 02/09/18 [History] Montelukast [Singulair] 10 mg PO ASDIRECTED PRN 02/09/18 [History] Omeprazole 20 mg PO ASDIRECTED 07/26/18 [History] Hydrocodone/Acetaminophen [Hydrocodone-Acetamin 5-325 mg] 1 - 2 each PO Q6H PRN #6 tablet 11/04/20 [Rx] - CURRENT (IN HOUSE) MEDS Current Meds: Current Medications Lactated Ringer's (Ringers, Lactated) 1,000 mls @ 125 mls/hr IV ASDIRECTED ELIANE Stop: 11/07/20 23:00 Lidocaine/Sodium Bicarbonate (Lidocaine 1%/Sod Bicarbonate In Ns 8.4% 1 Ml Syringe) 0.25 ml IDERM ONETIME PRN PRN Reason: Prior to IV Start Stop: 11/07/20 18:00 Scopolamine (Scopolamine 1.5 Mg Transdermal Patch) 1.5 mg TRDERM ONETIME PRN PRN Reason: PONV Stop: 11/07/20 23:00 Scopolamine (Scopolamine 1.5 Mg Transdermal Patch) 1.5 mg TOP ONETIME ELIANE Stop: 11/07/20 18:00 Last Admin: 11/07/20 06:04 Dose: 1.5 mg Documented by: Sodium Chloride (Sodium Chloride 0.9% 10 Ml Syringe) 10 ml FLUSH ASDIRECTED PRN PRN Reason: Keep Vein Open Stop: 11/07/20 18:00 Discontinued Medications Bupivacaine HCl (Bupivacaine 0.25% 10 Ml Sdv) Confirm Administered Dose 20 ml .ROUTE .STK-MED ONE Stop: 11/07/20 06:22 Cefazolin Sodium (Cefazolin 1 Gm Vial) Confirm Administered Dose 2 gm .ROUTE .STK-MED ONE Stop: 11/07/20 06:44 Dexamethasone (Dexamethasone 4 Mg/Ml 5 Ml Mdv) Confirm Administered Dose 20 mg .ROUTE .STK-MED ONE Stop: 11/07/20 06:45 Lidocaine HCl (Lidocaine 1% 30 Ml Sdv) Confirm Administered Dose 30 ml .ROUTE .STK-MED ONE Stop: 11/07/20 06:47 Midazolam HCl (Midazolam 1 Mg/Ml 2 Ml Sdv) Confirm Administered Dose 2 mg .ROUTE .STK-MED ONE Stop: 11/07/20 06:44 Ondansetron HCl (Ondansetron 4 Mg/2 Ml Sdv) Confirm Administered Dose 4 mg .ROUTE .STK-MED ONE Stop: 11/07/20 06:44 Propofol (Propofol 200 Mg/20 Ml Sdv) Confirm Administered Dose 400 mg .ROUTE . STK-MED ONE Stop: 11/07/20 06:44
--- NOTE | 2020-11-07 08:15 | PCM48HPAN ---
Post Anesthesia Note - EVALUATION WITHIN 48HRS OF ANESTHETIC Vital Signs in Normal Range: Yes Patient Participated in Evaluation: Yes Respiratory Function Stable: Yes Airway Patent: Yes Cardiovascular Function Stable: Yes Hydration Status Stable: Yes Pain Control Satisfactory: Yes Nausea and Vomiting Control Satisfactory: Yes Mental Status Recovered: Yes Vital Signs: Last Vital Signs Temp 36.1 C 11/07/20 08:00 Pulse 78 11/07/20 08:00 Resp 17 11/07/20 08:00 BP 117/71 11/07/20 08:00 Pulse Ox 94 L 11/07/20 08:00
[2020-11-07 08:53] VITALS: BP 140/71; PULSE 62
--- NOTE | 2020-11-10 08:08 | PCM.OPNOTE ---
- General Post-Op/Procedure Note Date of Surgery/Procedure: 11/07/20 Operative Procedure(s): left middle finger a1 evi release Pre Op Diagnosis: left middle finger stenosing tenosynovitis Post-Op Diagnosis: Same Anesthesia Technique: Local, MAC Primary Surgeon: Claude Patel Anesthesia Provider: Marycarmen Ivy Shiatsu Therapist: Carol Werner EBL in mLs: 5 Complications: None Condition: Good
--- NOTE | 2020-11-10 08:44 | OR ---
DATE OF OPERATION: 11/07/2020 SURGEON: Claude Patel MD OPERATION PERFORMED: Left middle finger A1 evi release. PREOPERATIVE DIAGNOSIS: Left middle finger stenosing tenosynovitis. POSTOPERATIVE DIAGNOSIS: Left middle finger stenosing tenosynovitis. ANESTHESIA: Local MAC. ANESTHESIA PROVIDER: Carmen Weber HAND ENGRAVER: Carol Werner PA-C ESTIMATED BLOOD LOSS: Less than 5 mL. COMPLICATIONS: None. CONDITION: Stable. DESCRIPTION OF PROCEDURE: The patient was identified in the preoperative holding area. Proper site was marked and identified by surgeon. The patient was taken back to the operating theater, where after adequate anesthesia, the patient's left upper extremity was sterilely prepped and draped in usual sterile fashion. OR time-out was performed. The patient received 2 g IV Ancef. Left upper extremity was then exsanguinated, and Esmarch was used as a tourniquet on the forearm. 1% lidocaine without epinephrine and 0.25% Marcaine without epinephrine were then used to anesthetize the transverse incisional site over the A1 evi of the left middle finger. Incision was then made. Blunt dissection was taken down to the A1 evi. Ragnell retractors were placed both ulnarly and radially to protect the neurovascular bundles. [place] blade was then used for resection of the A1 evi both proximally and distally, stopping short of the A2 evi. It was found to be adequately released. There were no tendinous adhesions. Adequate saline was irrigated through the wound. 4-0 nylon suture was used for closure of the skin. The patient had a sterile soft dressing applied and sent to the PACU in stable condition. MMODAL /[id number]
== END 2020-11-07 08:49 | disposition home or self-care (01) ==
LOC: JD.SDS 06:01
PROVIDERS: ATTEND Orthopaedic Surgery
DX: M65.842 Other synovitis and tenosynovitis, left hand (principal); M65.332 Trigger finger, left middle finger; I10 Essential (primary) hypertension; N52.9 Male erectile dysfunction, unspecified; K21.9 Gastro-esophageal reflux disease without esophagitis; E78.2 Mixed hyperlipidemia; Z88.8 Allergy status to other drugs, medicaments and biological substances; Z79.899 Other long term (current) drug therapy; Z98.890 Other specified postprocedural states
CPT/HCPCS: 26055; A9270; J0690; J1100; J2250; J2405; J2704; J3490; J7120; 01810

== ENCOUNTER 2021-02-01 17:48 | Emergency (ER) | payer MEDICARE, BC ==
[2021-02-01] MEDS ORDERED: Sodium Chloride 0.9% 10 ML Syringe FLUSH PRN (19:08)
[2021-02-01] MEDS ORDERED: Ondansetron 4 MG/2 ML SDV IVPUSH ONE ×2 (19:08→23:37)
[2021-02-01] MEDS ORDERED: Metoprolol Tartrate 5 MG/5 ML SDV IVPUSH ONE (19:10)
[2021-02-01] MEDS ORDERED: Sodium Chloride 0.9% 1,000 ML IV SCH (19:15)
--- NOTE | 2021-02-01 19:16 | EDM.PDOC ---
ED HPI GENERAL MEDICAL PROBLEM - General Chief Complaint: Cardiovascular Problem Stated Complaint: HIGH BP Time Seen by Provider: 02/01/21 19:00 Source of Information: Reports: Patient History Limitations: Reports: No Limitations - History of Present Illness INITIAL COMMENTS - FREE TEXT/NARRATIVE: The patient presents with dizziness. The patient said about 4 hours ago he had acute onset of dizziness where the room was spinning. He checked his blood pressure and it was 180s systolic and heart rate was low. When he arrived here his systolic BP was 213. He has some frontal head pressure. He has nausea. He did take an antivert for the dizziness. He has no fever, chills, cough, chest pain, shortness of breath, abdominal pain or vomiting. He has no numbness or weakness. Onset: Sudden Duration: Hour(s): (4) Location: Reports: Head Quality: Reports: Pressure Severity: Mild Improves with: Reports: Immobilization Worsens with: Reports: Movement Associated Symptoms: Reports: Headaches, Nausea/Vomiting. Denies: Chest Pain, Cough, Fever/Chills, Shortness of Breath - Related Data Allergies Allergy/AdvReac Type Severity Reaction Status Date / Time Anesthetics - Amide Type - AdvReac Vomiting Verified 02/01/21 18:29 Select A Anesthetics - Dipti Type- AdvReac Vomiting Verified 02/01/21 18:29 Parabens Home Meds: Home Meds Fenofibrate Nanocrystallized [Tricor] 48 mg PO BEDTIME 12/02/13 [History] [place]-3S/DHA/Epa/Fish Oil/D3 [Fish Ser-Kkjuv-0-Vit D Softgel] 1 each PO BEDTIME 12/02/13 [History] Ubidecarenone [Co Q-10] 10 mg PO BEDTIME 12/02/13 [History] Lovastatin 20 mg PO BEDTIME 03/26/15 [History] Nortriptyline 20 mg PO BEDTIME 05/08/16 [History] Cholecalciferol (Vitamin D3) [Vitamin D3] 1,000 unit PO BEDTIME 08/31/16 [History] Fluticasone Propionate [Flonase] 1 spray NASBOTH ASDIRECTED PRN 02/09/18 [History] Montelukast [Singulair] 10 mg PO ASDIRECTED PRN 02/09/18 [History] Omeprazole 20 mg PO ASDIRECTED 07/26/18 [History] Hydrocodone/Acetaminophen [HYDROcodone-Acetaminophen 5-325 MG] 1 - 2 each PO Q6H PRN #6 tablet 11/04/20 [Rx] Past Medical History HEENT History: Reports: Impaired Vision Other HEENT History: cerumen impaction, wears glasses, 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 Cardiovascular History: Reports: High Cholesterol Respiratory History: Reports: Pneumothorax Other Respiratory History: Right spontaneous pneumothorax resulting in chest tube placement, followed by talc pleurodesis 2013, seasonal allergies Gastrointestinal History: Reports: GERD, Other (See Below) Other Gastrointestinal History: gastroenteritis Genitourinary History: Reports: Prostate Disorder, Other (See Below) 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 Musculoskeletal History: Reports: Arthritis, Osteoarthritis Other Musculoskeletal History: carpal tunnel syndrome, hip pain, joint pain, laminectomy 91,93, L knee cartilage repair 71, R toe pain, low back strain Neurological History: Reports: Migraines Other Neuro History: [place] virus Fall 2017 Psychiatric History: Reports: Anxiety Endocrine/Metabolic History: Reports: None, Obesity/BMI 30+, Vitamin D Deficiency Hematologic History: Reports: None Immunologic History: Reports: None Oncologic (Cancer) History: Reports: Prostate Other Dermatologic History: sebaceous cyst, onchomycosis, epidermal cyst - Infectious Disease History Infectious Disease History: Reports: Measles, Mononucleosis - Past Surgical History Head Surgeries/Procedures: Reports: None HEENT Surgical History: Reports: Tonsillectomy Respiratory Surgical History: Reports: Pleurodesis GI Surgical History: Reports: Colonoscopy Male Surgical History: Reports: Prostatectomy Other Male Surgeries/Procedures: Prostate CA 01/04/2016 Musculoskeletal Surgical History: Reports: Knee Replacement Other Musculoskeletal Surgeries/Procedures:: bulging disks/laminectomy, L carpal tunnel surgery, knee surgery L knee replacement 2016 Social & Family History - Family History Family Medical History: No Pertinent Family History - Tobacco Use Tobacco Use Status *Q: Never Tobacco User - Caffeine Use Caffeine Use: Reports: None - Alcohol Use Days Per Week of Alcohol Use: 7 Number of Drinks Per Day: 1 Total Drinks Per Week: 7 - Recreational Drug Use Recreational Drug Use: No - Living Situation & Occupation Living situation: Reports: Occupation: Employed ED ROS GENERAL - Review of Systems Review Of Systems: See Below Constitutional: Reports: No Symptoms HEENT: Reports: Vertigo Respiratory: Reports: No Symptoms Cardiovascular: Reports: No Symptoms Endocrine: Reports: No Symptoms GI/Abdominal: Reports: Nausea. Denies: Abdominal Pain, Vomiting : Reports: No Symptoms Musculoskeletal: Reports: No Symptoms Neurological: Reports: Dizziness, Headache ED EXAM, GENERAL - Physical Exam Exam: See Below Exam Limited By: No Limitations General Appearance: Alert, No Apparent Distress Eye Exam: Bilateral Eye: Nystagmus Ears: Normal External Exam Nose: Normal Inspection Head: Atraumatic, Normocephalic Neck: Normal Inspection, Supple, Non-Tender Respiratory/Chest: No Respiratory Distress, Lungs Clear, Normal Breath Sounds Cardiovascular: Regular Rate, Rhythm, No Edema, No Murmur GI/Abdominal: Soft, Non-Tender, No Organomegaly, No Mass Back Exam: Normal Inspection Extremities: Normal Inspection Neurological: Alert, Oriented, No Motor/Sensory Deficits #1 Interpretation EKG Date: 02/01/21 Time: 18:56 Rhythm: Other (sinus bradycardia) Rate (Beats/Min): 52 [place]: LAD-Left [place] Deviation P-Wave: Present QRS: Normal ST-T: Normal QT: Normal Course - Vital Signs Last Recorded V/S: Last Vital Signs Temp 97.3 F 02/01/21 18:26 Pulse 58 L 02/01/21 18:26 Resp 17 02/01/21 18:26 BP 213/118 H 02/01/21 18:26 Pulse Ox 98 02/01/21 18:26 - Orders/Labs/Meds Orders: Active Orders 24 hr Category Date Time Status Cardiac Monitoring [RC] . DIRECTED Care 02/01/21 19:08 Active Peripheral IV Care [RC] . DIRECTED Care 02/01/21 19:09 Active Head wo Cont [CT] Stat Exams 02/01/21 19:43 Taken Ondansetron [Zofran] Med 02/01/21 23:37 Once 4 mg IVPUSH ONETIME ONE Sodium Chloride 0.9% [Normal Saline] 1,000 ml Med 02/01/21 19:15 Active IV ASDIRECTED Sodium Chloride 0.9% [Saline Flush] Med 02/01/21 19:08 Active 10 ml FLUSH ASDIRECTED PRN ED Antiemetic Medication Reflex [OM.PC] Stat Oth 02/01/21 19:09 Ordered Peripheral IV Insertion Adult [OM.PC] Stat Oth 02/01/21 19:08 Ordered Medication Orders Sodium Chloride (Normal Saline) 1,000 mls @ 125 mls/hr IV ASDIRECTED ELIANE Last Admin: 02/01/21 19:36 Dose: 125 mls/hr Documented by: STEVEN Ondansetron HCl (Ondansetron 4 Mg/2 Ml Sdv) 4 mg IVPUSH ONETIME ONE Stop: 02/01/21 23:38 Sodium Chloride (Sodium Chloride 0.9% 10 Ml Syringe) 10 ml FLUSH ASDIRECTED PRN PRN Reason: Keep Vein Open Last Admin: 02/01/21 19:37 Dose: 10 ml Documented by: STEVEN Labs: Laboratory Tests 02/01/21 02/01/21 Range/Units 19:30 19:30 WBC 8.57 (4.23-9.07) K/mm3 RBC 5.09 (4.63-6.08) M/mm3 Hgb 16.1 (13.7-17.5) gm/dl Hct 45.7 (40.1-51.0) % MCV 89.8 (79.0-92.2) fl MCH 31.6 (25.7-32.2) pg MCHC 35.2 (32.2-35.5) g/dl RDW Std Deviation 40.5 (35.1-43.9) fL Plt Count 348 H (163-337) K/mm3 MPV 9.2 L (9.4-12.3) fl Neut % (Auto) 67.1 (34.0-67.9) % Lymph % (Auto) 23.5 (21.8-53.1) % [place] % (Auto) 7.1 (5.3-12.2) % Eos % (Auto) 1.6 (0.8-7.0) Baso % (Auto) 0.6 (0.1-1.2) % Neut # (Auto) 5.75 H (1.78-5.38) K/mm3 Lymph # (Auto) 2.01 (1.32-3.57) K/mm3 [place] # (Auto) 0.61 (0.30-0.82) K/mm3 Eos # (Auto) 0.14 (0.04-0.54) K/mm3 Baso # (Auto) 0.05 (0.01-0.08) K/mm3 Sodium 137 (136-145) mEq/L Potassium 3.5 (3.5-5.1) mEq/L Chloride 100 (98-107) mEq/L Carbon Dioxide 25 (21-32) mEq/L Anion Gap 15.5 H (5-15) BUN 10 (7-18) mg/dL Creatinine 1.1 (0.7-1.3) mg/dL Est Cr Clr Drug Dosing 66.06 mL/min Estimated GFR (MDRD) > 60 (>60) mL/min BUN/Creatinine Ratio 9.1 L (14-18) Glucose 127 H (70-99) mg/dL Calcium 8.7 (8.5-10.1) mg/dL Total Bilirubin 0.6 (0.2-1.0) mg/dL AST 30 (15-37) U/L ALT 67 H (16-63) U/L Alkaline Phosphatase 40 L (46-116) U/L Troponin I < 0.017 (0.00-0.056) ng/mL Total Protein 7.8 (6.4-8.2) g/dl Albumin 4.4 (3.4-5.0) g/dl Globulin 3.4 gm/dL Albumin/Globulin Ratio 1.3 (1-2) Meds: Medications Generic Name Dose Route Start Last Admin Trade Name Freq PRN Reason Stop Dose Admin Sodium Chloride 1,000 mls @ 125 mls/hr 02/01/21 19:15 02/01/21 19:36 Normal Saline IV 125 mls/hr ASDIRECTED ELIANE Administration Ondansetron HCl 4 mg 02/01/21 23:37 Ondansetron 4 Mg/2 Ml Sdv IVPUSH 02/01/21 23:38 ONETIME ONE Sodium Chloride 10 ml 02/01/21 19:08 02/01/21 19:37 Sodium Chloride 0.9% 10 Ml Syringe FLUSH 10 ml ASDIRECTED PRN Administration Keep Vein Open Discontinued Medications Generic Name Dose Route Start Last Admin Trade Name Freq PRN Reason Stop Dose Admin Diazepam 1 mg 02/01/21 19:55 02/01/21 20:19 Diazepam 10 Mg/2 Ml Syringe IVPUSH 02/01/21 19:56 1 mg ONETIME ONE Administration Diazepam 2 mg 02/01/21 21:08 02/01/21 21:12 Diazepam 10 Mg/2 Ml Syringe IVPUSH 02/01/21 21:09 2 mg ONETIME ONE Administration Diphenhydramine HCl 50 mg 02/01/21 22:06 02/01/21 22:17 Diphenhydramine 50 Mg/Ml Sdv IVPUSH 02/01/21 22:07 Not Given ONETIME ONE Hydralazine HCl 10 mg 02/01/21 19:17 02/01/21 19:37 Hydralazine 20 Mg/Ml Sdv IVPUSH 02/01/21 19:18 10 mg ONETIME ONE Administration Metoprolol Tartrate 5 mg 02/01/21 19:10 02/01/21 19:46 Metoprolol Tartrate 5 Mg/5 Ml Sdv IVPUSH 02/01/21 19:11 Not Given ONETIME ONE Ondansetron HCl 4 mg 02/01/21 19:08 02/01/21 19:37 Ondansetron 4 Mg/2 Ml Sdv IVPUSH 02/01/21 19:09 4 mg ONETIME ONE Administration - Re-Assessments/Exams Free Text/Narrative Re-Assessment/Exam: 02/01/21 19:15 I ordered an IV NS at 125mL/hr, zofran 4mg IV, EKG, CT of his head and labs. 02/01/21 23:38 He could not lay down for the CT. I gave him a couple doses of ativan and he was able to lay down. The CT of his head looks good. His CBC looks good. His glucose is 127. His ALT is 67. His troponin is negative. He feels better now. He has some antivert at home. I will also refer him to PT. Departure - Departure Time of Disposition: 23:40 Disposition: Home, Self-Care 01 Condition: Good Clinical Impression: Vertigo Referrals: Amara Jimenes MD [Primary Care Provider] - 1 Week Forms: ED Department Discharge Additional Instructions: Drink plenty of fluids. Take the meclizine every 6 hours as needed for dizziness. Keep taking your blood pressure medications as prescribed. Have your blood pressure checked in a couple of days. Follow up with your doctor within a week. Follow up with PT for the vertigo. Please return if you are worse. Sepsis Event Note (ED) - Evaluation Sepsis Screening Result: No Definite Risk - Focused Exam Vital Signs: Vital Signs Temp Pulse Resp BP Pulse Ox 02/01/21 18:26 97.3 F 58 L 17 213/118 H 98 - My Orders Last 24 Hours: My Active Orders 02/01/21 19:08 Cardiac Monitoring [RC] . DIRECTED Sodium Chloride 0.9% [Saline Flush] 10 ml FLUSH ASDIRECTED PRN Peripheral IV Insertion Adult [OM.PC] Stat 02/01/21 19:09 Peripheral IV Care [RC] . DIRECTED ED Antiemetic Medication Reflex [OM.PC] Stat 02/01/21 19:15 Sodium Chloride 0.9% [Normal Saline] 1,000 ml IV ASDIRECTED 02/01/21 19:43 Head wo Cont [CT] Stat 02/01/21 23:37 Ondansetron [Zofran] 4 mg IVPUSH ONETIME ONE - Assessment/Plan Last 24 Hours: My Active Orders 02/01/21 19:08 Cardiac Monitoring [RC] . DIRECTED Sodium Chloride 0.9% [Saline Flush] 10 ml FLUSH ASDIRECTED PRN Peripheral IV Insertion Adult [OM.PC] Stat 02/01/21 19:09 Peripheral IV Care [RC] . DIRECTED ED Antiemetic Medication Reflex [OM.PC] Stat 02/01/21 19:15 Sodium Chloride 0.9% [Normal Saline] 1,000 ml IV ASDIRECTED 02/01/21 19:43 Head wo Cont [CT] Stat 02/01/21 23:37 Ondansetron [Zofran] 4 mg IVPUSH ONETIME ONE
[2021-02-01] MEDS ORDERED: hydrALAZINE 20 MG/ML SDV IVPUSH ONE (19:17)
[2021-02-01] MEDS ORDERED: diphenhydrAMINE 50 MG/ML SDV IVPUSH ONE (22:06)
[2021-02-02 00:10] VITALS: BP 138/87; PULSE 80
--- NOTE | 2021-02-02 07:24 | CT ---
Head CT Technique: Multiple axial sections through the brain were obtained. Intravenous contrast was not utilized. Reconstructed coronal and sagittal images were obtained. Comparison: Prior head CT exam of 02/08/18. Findings: Ventricles along with basal cisterns and sulci over the convexities are within normal limits for the patient's age. No abnormal parenchymal densities are seen. No evidence of intracranial hemorrhage is seen. No midline shift or mass-effect is seen. Very minimal atherosclerotic change is seen within the carotid siphon and vertebral vessels. Visualized paranasal sinuses and mastoid sinuses show nothing acute. No acute calvarial abnormality is appreciated. Impression: 1. Minimal calcification within the vertebral vessels and within the carotid siphon. 2. No acute intracranial abnormality is appreciated. Diagnostic code #2 I agree with preliminary report from ruiz, finalized on 02/01/21, 11:29 PM CDT, code 1
== END 2021-02-02 00:58 | disposition home or self-care (01) ==
LOC: JD.ED 17:48
DX: R42 Dizziness and giddiness (principal); E78.00 Pure hypercholesterolemia, unspecified; K21.9 Gastro-esophageal reflux disease without esophagitis; E66.9 Obesity, unspecified; Z68.31 Body mass index [BMI] 31.0-31.9, adult; Z88.4 Allergy status to anesthetic agent; Z79.899 Other long term (current) drug therapy
CPT/HCPCS: 36415; 70450; 80053; 84484; 85025; 93005; 96374; 96375; 96376; 99284; J0360; J2405; J3360; J7030; 93010

== ENCOUNTER → 2024-05-14 | Day surgery (SDC) | payer MEDICARE, BC ==
[~2024-05-14] MED LIST changes: +Dexamethasone 4 MG/ML 5 ML MDV ONE; +HYDROmorphone 0.5 MG/0.5 ML Syringe IVPUSH PRN; +Ketorolac 30 MG/ML SDV ONE; -Lactated Ringers 1,000 ML IV SCH; +Lidocaine 1% 5 ML VIAL ONE; -Lidocaine 1%/Sod Bicarbonate in NS 8.4% 1 ML Syringe IDERM PRN; +Midazolam 1 MG/ML 2 ML SDV ONE; +Ondansetron 4 MG/2 ML SDV IVPUSH PRN; +Ondansetron 4 MG/2 ML SDV ONE; +Propofol 200 MG/20 ML SDV ONE; +Rocuronium 50 MG/5 ML Vial ONE; +Ropivacaine 0.5% 5 MG/ML 30 ML SDV ONE; +Scopalamine 1mg/3day Transdermal Patch TOP ONE; -Scopolamine 1.5 MG Transdermal Patch TOP SCH; -Scopolamine 1.5 MG Transdermal Patch TRDERM PRN; +Sodium Chloride 0.9% 10 ML Syringe FLUSH SCH; +Sugammadex Sodium 200 MG/2 ML VIAL IV ONE; +ceFAZolin 2 GM Vial ONE; +dexmedeTOMIDine HCl 200 MCG/2 ML SDV ONE; +ePHEDrine 50 MG/ML SDV ONE; +fentaNYL 100 MCG/2 ML SDV ONE
[2024-05-14] MEDS: Lactated Ringers 1,000 ML IV SCH (06:15)
[2024-05-14] MEDS: Acetaminophen 325 MG Tab PO SCH (06:38)
[2024-05-14] MEDS: Pregabalin 25 MG Cap PO SCH (06:38)
[2024-05-14] MEDS: oxyCODONE ER 10 MG TAB.ER PO SCH (06:39)
[2024-05-14] MEDS: Scopalamine 1mg/3day Transdermal Patch TOP SCH (06:41)
[2024-05-14 06:42] LABS: PROTHROMBIN TIME 10.6 SECONDS (9.7-12.0)
[2024-05-14 06:44] LABS: PTT,PARTIAL THROMBOPLSTIN TIME 26.3 SECONDS (21.7-31.4)
[2024-05-14] MEDS: Tranexamic Acid 1,000 MG/10 ML Vial ONE (08:27)
[2024-05-14] MEDS: VANCOmycin 1 GM SDV ONE (08:27)
[2024-05-14] MEDS: fentaNYL 100 MCG/2 ML SDV IVPUSH PRN (09:27)
[2024-05-14] MEDS: oxyCODONE 5 MG Tab PO ONE (11:15)
[2024-05-14 12:06] VITALS: BP 134/69; PULSE 78
== END | disposition home or self-care (01) ==
LOC: JD.SDS 06:10
PROVIDERS: ATTEND Orthopaedic Surgery
DX: M19.011 Primary osteoarthritis, right shoulder (principal); K21.9 Gastro-esophageal reflux disease without esophagitis; I10 Essential (primary) hypertension; E78.00 Pure hypercholesterolemia, unspecified; E66.9 Obesity, unspecified; Z86.16 Personal history of COVID-19; Z88.8 Allergy status to other drugs, medicaments and biological substances; Z79.2 Long term (current) use of antibiotics; Z79.899 Other long term (current) drug therapy; Z68.32 Body mass index [BMI] 32.0-32.9, adult
CPT/HCPCS: 23472; 36415; 64415; 76000; 85610; 85730; 97110; 97116; 97161; A9270; J0690; J1100; J1885; J2250; J2405; J2704; J2795; J3010; J3490; J7120

== ENCOUNTER 2024-11-14 13:56 | Emergency (ER) | payer MEDICARE, BC ==
[2024-11-14 14:09] VITALS: BP 143/79; PULSE 65
== END 2024-11-14 14:40 | disposition home or self-care (01) ==
LOC: JD.ED 13:56
DX: R51.9 Headache, unspecified (principal); Z76.0 Encounter for issue of repeat prescription; E78.00 Pure hypercholesterolemia, unspecified; Z88.4 Allergy status to anesthetic agent; Z79.899 Other long term (current) drug therapy
CPT/HCPCS: 93005; 99282; 99283

== ENCOUNTER 2025-02-18 06:48 | Emergency (ER) | payer MEDICARE, BC ==
[2025-02-18 07:33] LABS: BASOPHILS ABSOLUTE AUTO 0.1 K/mm3 (0.0-0.2); BASOPHILS PERCENT AUTO 0.7 % (0.0-1.0); EOSINOPHILS ABSOLUTE AUTO 0.2 K/mm3 (0.0-0.4); EOSINOPHILS PERCENT AUTO 2.3 % (0.0-6.0); IMMATURE GRAN ABSOLUTE AUTO 0.02 K/mm3 (0.00-0.05); IMMATURE GRAN PERCENT AUTO 0.2 % (0.0-0.4); LYMPHOCYTES ABSOLUTE AUTO 1.4 K/mm3 (1.0-4.8); LYMPHOCYTES PERCENT AUTO 14.2 % (24.0-44.0); MEAN PLATELET VOLUME 9.2 fl (9.4-12.4); MONOCYTES ABSOLUTE AUTO 0.9 K/mm3 (0.0-0.8); MONOCYTES PERCENT AUTO 9.5 % (0.0-8.0); NEUTROPHILS ABSOLUTE AUTO 7.1 K/mm3 (1.8-7.7); NEUTROPHILS PERCENT AUTO 73.1 % (41.0-71.0); NRBC ABSOLUTE 0.00 (0.00-0.02); NRBC PERCENT 0.0 % (0.0-0.2); PLATELET COUNT,PLT 266 K/mm3 (150-400); RED BLOOD CELL COUNT 4.79 M/mm3 (4.52-5.90); WHITE BLOOD CELL COUNT,WBC 9.76 K/mm3 (3.9-11.3)
[2025-02-18 08:49] VITALS: BP 120/60; PULSE 62
== END 2025-02-18 08:24 | disposition home or self-care (01) ==
LOC: JD.ED 06:48
DX: M25.572 Pain in left ankle and joints of left foot (principal); E78.00 Pure hypercholesterolemia, unspecified; K21.9 Gastro-esophageal reflux disease without esophagitis; Z79.899 Other long term (current) drug therapy; Z88.4 Allergy status to anesthetic agent; Y93.89 Activity, other specified; X50.1XXA Overexertion from prolonged static or awkward postures, initial encounter
CPT/HCPCS: 36415; 73610-26-LT; 73610-LT; 84550; 85025; 85652; 86140; 99283